=== PATIENT | male | born 1985 | race Caucasian/White ===

== ENCOUNTER 2023-02-19 13:47 | Emergency (ER) | payer OTHER, SELFPAY ==
[2023-02-19] VITALS (39 sets, daily range): BP systolic 125–147; BP diastolic 81–110; PULSE 86–123; RESP 18–24; TEMP 36.8–38.1; O2SAT 90–99; BMI 26.6
--- NOTE | 2023-02-19 14:09 | ED.GENADULT ---
HPI - General Adult General Chief complaint: Chest Pain Stated complaint: Cannot stand, chest pain, sweating Time Seen by Provider: 02/19/23 14:08 History of Present Illness HPI narrative: Medically complicated pt, mom states 67 surgeries in 18 years. Pt has a mitroffanoff which he caths through. Pt is having muscle spasms, a temperature, chest pains and has a fever per mom. Mom states pt called her yesterday and said he was sick and said his kidneys hurt and he was felling very sick. Mom brought him in to be seen. 37-year-old man presenting with Mom to the emergency department with concern of just feeling really bad. Extensive and complicated past medical. Yesterday started to feel weak and was starting to feel increasingly chilled. Went outside, I would notice rather warm today, to try to feel warm. He does not acknowledge a fever though apparently measured to 99.9 on arrival and as I am evaluating him we recheck at 100.3 temporal. No cough or cold symptoms. He is not actually short of breath. The hunched over in apparent a chest pain on the way into the emergency department. Is not complaining of that at the moment. Has been having some muscle spasms. Had numerous procedures. Does acknowledge more remotely a history of sepsis following what sounds like a perforated bladder. And has been septic apparently from a sepsis with urinary source as well. Does not have known cardiovascular disease. He does self cath through a Mitrofanoff. 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 He has been having headache and some soreness at the left neck Related Data Allergies Allergy/AdvReac Type Severity Reaction Status Date / Time cephalexin [From Keflex] Allergy Hives Verified 02/23/23 19:22 nitrofurantoin Allergy Rash Verified 02/25/23 12:57 [From Macrobid] amoxicillin AdvReac Severe Verified 02/19/23 14:06 latex AdvReac Severe Verified 02/19/23 14:06 levofloxacin AdvReac Severe Verified 02/19/23 14:06 morphine AdvReac Severe Verified 02/19/23 14:06 Penicillins AdvReac Severe Verified 02/19/23 14:06 Review of Systems Status of ROS: Reports: 6 or more systems reviewed and unremarkable except as noted in History and below PFSH PFSH Social History Smoking Status: Never smoker Do you use any of these nicotine containing products: None Second hand tobacco smoke exposure: No How often do you have a drink containing alcohol: never How often do you have six or more drinks on one occasion: Never AUDIT-C Alcohol total score: 0 Non-prescribed substance use: denies use service: No Exam Narrative: Exam Narrative: Slumped over brought in to room 8 in a wheelchair. Skin is warm and dry. Numerous areas of scarring over abdomen and lower legs consistent with surgical sites. He has a colostomy at the left lower abdomen. Mildly erythematous umbilicus as site of catheterization. No purulence here. No induration or calor to suggest a cellulitis. GCS of 14. He is falling asleep but does arouse to voice or touch. Head looks to be atraumatic. Cranial nerves 2-12 intact. Lungs are clear. Skin is quite warm generally though the lower extremities are cool from mid erazo down. Chronically diminished tone here and decreased muscular development. He has posterior ankle braces that are in place presumably for footdrop to some degree. No inflammatory changes in the legs. No edema. Abdomen is soft and nontender with scars noted as above. Colostomy site is not appear to be inflamed. Heart is tachycardic in a regular rhythm. There is a scar present at the left neck that is generally a little tender. Pupils are equal and briskly reactive. Const: Vital Signs, click to edit/add: Vital Signs - 24 hr 02/19/23 14:00 02/19/23 14:11 02/19/23 14:15 Temperature 99.9 F H Pulse Rate 116 H 109 H Pulse Rate [Right Pulse Oximeter] 123 H Respiratory Rate 22 Blood Pressure Blood Pressure [Ri ght Upper Arm] 135/94 H Pulse Oximetry 97 98 97 Oxygen Delivery Me thod Room Air 02/19/23 14:17 02/19/23 14:30 02/19/23 14:32 Temperature Pulse Rate 115 H 110 H 104 H Pulse Rate [Right Pulse Oximeter] Respiratory Rate Blood Pressure 139/94 H 133/93 H Blood Pressure [Ri ght Upper Arm] Pulse Oximetry 96 97 96 Oxygen Delivery Me thod 02/19/23 14:45 02/19/23 14:47 02/19/23 15:00 Temperature Pulse Rate 110 H 97 101 H Pulse Rate [Right Pulse Oximeter] Respiratory Rate Blood Pressure 137/103 H Blood Pressure [Ri ght Upper Arm] Pulse Oximetry 98 97 94 Oxygen Delivery Me thod 02/19/23 15:02 02/19/23 15:15 02/19/23 15:30 Temperature Pulse Rate 102 H 112 H 100 Pulse Rate [Right Pulse Oximeter] Respiratory Rate Blood Pressure 128/83 Blood Pressure [Ri ght Upper Arm] Pulse Oximetry 94 94 95 Oxygen Delivery Me thod 02/19/23 15:31 02/19/23 15:45 02/19/23 16:00 Temperature Pulse Rate 98 105 H 106 H Pulse Rate [Right Pulse Oximeter] Respiratory Rate Blood Pressure 132/91 H Blood Pressure [Ri ght Upper Arm] Pulse Oximetry 97 98 92 Oxygen Delivery Me thod 02/19/23 16:05 02/19/23 16:15 02/19/23 16:30 Temperature Pulse Rate 111 H 110 H 106 H Pulse Rate [Right Pulse Oximeter] Respiratory Rate Blood Pressure Blood Pressure [Ri ght Upper Arm] Pulse Oximetry 98 94 97 Oxygen Delivery Me od 02/19/23 16:34 02/19/23 16:39 02/19/23 16:40 Temperature Pulse Rate 92 110 H 110 H Pulse Rate [Right Pulse Oximeter] Respiratory Rate Blood Pressure 138/110 H Blood Pressure [Ri ght Upper Arm] Pulse Oximetry 93 98 99 [facility] 16:42 02/19/23 16:45 02/19/23 17:00 Temperature 100.5 F H Pulse Rate 104 H 94 Pulse Rate [Right Pulse Oximeter] Respiratory Rate 24 Blood Pressure Blood Pressure [Ri ght Upper Arm] Pulse Oximetry 99 94 Oxygen Delivery Me thod 02/19/23 17:01 02/19/23 17:15 02/19/23 17:30 Temperature Pulse Rate 96 94 112 H Pulse Rate [Right Pulse Oximeter] Respiratory Rate Blood Pressure 125/81 Blood Pressure [Ri ght Upper Arm] Pulse Oximetry 90 95 97 Oxygen Delivery Me thod 02/19/23 17:32 02/19/23 17:45 02/19/23 18:00 Temperature Pulse Rate 112 H 96 100 Pulse Rate [Right Pulse Oximeter] Respiratory Rate Blood Pressure 145/97 H Blood Pressure [Ri ght Upper Arm] Pulse Oximetry 97 97 95 Oxygen Delivery Me thod 02/19/23 18:02 02/19/23 18:03 02/19/23 18:09 Temperature 98.2 F Pulse Rate 99 94 Pulse Rate [Right Pulse Oximeter] 94 Respiratory Rate 18 Blood Pressure 138/96 H Blood Pressure [Ri ght Upper Arm] Pulse Oximetry 97 96 96 Oxygen Delivery Me thod Room Air 02/19/23 18:15 02/19/23 18:30 02/19/23 18:32 Temperature Pulse Rate 102 H 98 93 Pulse Rate [Right Pulse Oximeter] Respiratory Rate Blood Pressure 145/102 H Blood Pressure [Ri ght Upper Arm] Pulse Oximetry 95 97 96 Oxygen Delivery Me thod 02/19/23 18:45 02/19/23 19:00 02/19/23 19:01 Temperature Pulse Rate 93 88 86 Pulse Rate [Right Pulse Oximeter] Respiratory Rate Blood Pressure 147/97 H Blood Pressure [Ri ght Upper Arm] Pulse Oximetry 97 97 94 Oxygen Delivery Me thod Documenting provider has reviewed patient's vital signs: yes Course Vital Signs Vital signs: Initial Vital Signs Temperature 99.9 F H 02/19/23 14:00 Temperature Source Temporal Artery Scan 02/19/23 14:00 Pulse Rate 123 H 02/19/23 14:00 Pulse Rhythm Regular 02/19/23 14:00 Pulse Strength 2+ Slightly Diminished 02/19/23 14:00 Respiratory Rate 22 02/19/23 14:00 Blood Pressure 135/94 H 02/19/23 14:00 Blood Pressure Mean 107 H 02/19/23 14:00 Blood Pressure Position Supine 02/19/23 14:00 Pulse Oximetry 97 02/19/23 14:00 Oxygen Delivery Method Room Air 02/19/23 14:00 Vital Signs Temperature 99.9 F H 02/19/23 14:00 Pulse Rate 123 H 02/19/23 14:00 Respiratory Rate 22 02/19/23 14:00 Blood Pressure 135/94 H 02/19/23 14:00 Pulse Oximetry 97 02/19/23 14:00 Oxygen Delivery Method Room Air 02/19/23 14:00 Temperature 98.2 F 02/19/23 18:09 Pulse Rate 86 02/19/23 19:01 Respiratory Rate 18 02/19/23 18:09 Blood Pressure 147/97 H 02/19/23 19:01 Pulse Oximetry 94 06/19/23 19:01 Oxygen Delivery Method Room Air 02/19/23 18:09 Medical Decision Making MDM Narrative Medical decision making narrative: Primarily needs investigation for infectious etiology. I think he will benefit also from IV hydration. Does appear to be dehydrated. Blood cultures will be collected. Urine culture Borderline SIRS criteria though ultimately I do not think he qualifies; not actually demonstrating organ dysfunction. Elevated white count mildly. Urine does appear to be infected. Markedly improved; does not look as flushed and definitely more energetic after hydration and monitoring in the emergency department. Heart rate notably improved. Ultimately ambulatory with Mom from the emergency department. Osmel in the emergency department See patient discharge plan Lab Data Lab results reviewed: Yes I reviewed the patient's lab results Labs: Lab Results 02/19/23 02/19/23 Range/Units 14:05 14:45 WBC 13.26 H (4.50-11.00) K/uL RBC 4.86 (4.30-5.90) m/uL Hgb 14.2 (13.5-17.5) gm/dL Hct 41.5 (37.0-53.0) % MCV 85 (80-100) fL MCH 29 (26-34) pg MCHC 34 (32-36) gm/dL RDW Coeff of Drake 12.5 (11.5-15.5) % Plt Count 256 (140-440) K/uL Neut % (Auto) 87.1 H (42.0-72.0) % Lymph % (Auto) 3.9 L (20-44) % Harnett % (Auto) 8.7 (0.0-11.0) % Eos % (Auto) 0.0 (0.0-7.0) % Baso % (Auto) 0.1 (0.0-3.0) % Neut # (Auto) 11.50 H (1.7-7.0) K/uL Lymph # (Auto) 0.50 L (0.90-2.90) K/uL H[place]ett # (Auto) 1.20 H (0.00-0.90) K/UL Eos # (Auto) 0.00 (0.00-0.50) K/uL Baso # (Auto) 0.00 (0.00-0.30) K/uL INR 1.06 (0.91-1.10) APTT 32 (23-33) Seconds VBG pH 7.527 H (7.32-7.43) VBG pCO2 24 L (40-50) mmHG VBG pO2 67.8 H (25-47) mmHG VBG HCO3 20 L (21-28) mmol/L Sodium 135 (135-149) mmol/L Potassium 3.6 (3.6-5.1) mmol/L Chloride 107 (96-114) mmol/L Carbon Dioxide 18 L (20-32) mmol/L BUN 13 (5-24) mg/dL Creatinine 0.9 (0.5-1.5) mg/dL Estimated Creat Clear 106.61 Estimated GFR 111 ml/min Glucose 105 (60-115) mg/dL Lactate 1.5 (0.5-1.9) mmol/L Calcium 9.5 (8.4-10.6) mg/dL Magnesium 2.0 (1.5-2.6) mg/dL Total Bilirubin 1.2 (0.1-1.5) mg/dL Direct Bilirubin 0.1 (0.0-0.5) mg/dL AST 19 (12-35) U/L ALT 20 (4-50) U/L Alkaline Phosphatase 47 (40-150) U/L Troponin I < 0.01 L (0.01-0.04) ng/mL C-Reactive Protein 14.9 H (0.5-1.0) mg/dL NT-Pro-B Natriuret Pep 31 pg/mL Total Protein 7.9 (6.0-8.3) g/dL Albumin 4.6 (3.3-5.0) g/dL Procalcitonin 0.15 (<0.50) ng/mL Urine Color Yellow (Yellow) Urine Appearance Turbid A (Clear) Urine pH 6.5 (5.0-8.5) Ur Specific [place] 1.015 (1.000-1.030) Urine Protein 1+ A (Negative) Urine Glucose (UA) Negative (Negative) Urine Ketones Negative (Negative) Urine Blood Trace-intact A (Negative) Urine Nitrite Positive A (Negative) Urine Bilirubin Negative (Negative) Urine Urobilinogen 0.2 (0.2-1.0) Ur Leukocyte Esterase Trace A (Negative) Urine RBC 5-10 A (0-2) Urine WBC 5-10 A (0-5) Ur Squamous Epith Cells None (None-Few) Urine Bacteria Many A (None) Urine Mucus Many A (None) ECG Data Attestation: I personally reviewed and interpreted this ECG as follows: (Sinus tachycardia rate of 115) Discharge Plan Discharge Clinical Impression: Weakness, Acute UTI, Dehydration Patient Disposition: Home w/ Parent or Adult Condition: Improved Additional Instructions: Focus on hydration. Return for increasing fever, worsening weakness, repeated vomiting. Urine and blood cultures are pending here. Ciprofloxacin from [facility]. Follow Up/Referrals: Lang Ramsay MD [Primary Care Provider] - Stand Alone Forms: [employer] Info Instructions
--- NOTE | 2023-02-19 14:19 | CRLHL7_ITS ---
For Patients: As a result of the Century Cures Act, medical imaging exams and procedure reports are released immediately into your electronic medical record. You may view this report before your referring provider. If you have questions, please contact your health care provider. Indication: Left-sided chest pain Technique: Chest 1 view Comparison: Chest x-ray 12/04/2016 Findings/Impression: Cardiovascular and mediastinum: Normal heart size with left-sided line extending to the cavoatrial junction. Lungs and pleural space: Low lung volumes without pleural effusion or pneumothorax. No focal consolidation. Bones and soft tissues: No acute findings. Dictated by Lul Thomas MD @ 02/19/2023 3:30:06 PM (Electronically Signed)
[2023-02-19] MEDS: 0.9 % SODIUM CHLORIDE 1000 ml 1,000 ML 6000 ML IV (14:25)
--- OUTSIDE RECORDS SUMMARY | 2023-02-19 14:27 | XMS_ITS | Clinical Summary ---
Author Name Unknown Organization [facility] Address [address] [place] [address] Care Team Providers Care Cell Changer Name Role Phone Lang Ramsay Primary Care Physician Encounter 08/14/22 - 08/14/[address] [id number] Encounter Diagnosis Renal cyst(Discharge Diagnosis) - 08/14/22 Neurogenic bladder(Discharge Diagnosis) - 08/14/22 Low vitamin B12 level(Discharge Diagnosis) - 08/14/22 S/p colostomy(Discharge Diagnosis) - 08/14/22 Discharge Disposition: Home or Self Care Attending Physician: Mirtha Schmitz APRN CNP Admitting Physician: Mirtha Schmitz APRN CNP Referring Physician: Mirtha Schmitz APRN CNP Allergies, Adverse Reactions, Alerts Substance Reaction Severity Status amoxicillin hives Active morphine anxiety Active Latex Anaphylaxis Active levoFLOXacin hives Active Discharge Medications budesonide Status: Ordered Start Date: 08/14/22 3 Milligrams Oral every morning. cyanocobalamin (Vitamin B-12 1000 mcg oral tablet) Status: Ordered Start Date: 08/11/22 1 tabs Oral every day. Refills: 11. Ordering provider: Mirtha Schmitz APRN CNP [address] [phone] levETIRAcetam (Keppra 500 mg oral tablet) Status: Ordered Start Date: 02/07/17 1 tabs Oral 2 times a day. oxybutynin (oxybutynin 5 mg oral tablet) Status: Ordered Start Date: 08/11/22 TAKE ONE TABLET (5MG) BY MOUTH EVERY MORNING AND 2 TABLETS (10MG) EVERY EVENING. Refills: 11. Ordering provider: Mirtha Schmitz APRN CNP [facility] [address] [place], [place] [phone] sodium chloride (sodium chlo ride 0.9% irrigation solution) Status: Ordered Start Date: 07/13/20 [address] appendicovesicostomy every day. Refills: 11. Ordering provider: Mirtha Schmitz APRN CNP [facility] [address] [place], [place] [phone] Problem List Condition Confirmation Course Effective Dates Status Health St atus Informant At high risk for falls 1 Confirmed Active Neurogenic bladder Confirmed Active Colitis Confirmed Active Low vitamin B12 level Confirmed Active Erectile dysfunction Confirmed 08/22/18 Active S/p colostomy Confirmed Active Recurrent UTI Confirmed Active Spina bifida Confirmed Active Urinary incontinence Confirmed Active 1Added via Discern Expert [email or web address] Rule. Hospital Discharge Diagnosis Low vitamin B12 level(Discharge Diagnosis) - 08/14/22 Neurogenic bladder (Discharge Diagnosis) - 08/14/22 Renal cyst(Discharge Diagnosis) - 08/14/22 S/p colostomy(Discharge Diagnosis) - 08/14/22 (This Visit) Procedures Procedure Date Related Diagnosis Body Site Status bladder stone Completed Cath channel with revision Completed colostomy Completed history of bladder perforation Completed history of several bladder neck procedures Completed renal stone removal Compl eted urethral AUS with removal Completed [facility] shunt Completed Immunizations Given and Recorded Vaccine Date Status Refusal Reason SARS-CoV-2 mRNA (tozinameran) vaccine 05/10/21 Rec orded SARS-CoV-2 mRNA (tozinameran) vaccine 04/15/21 Rec orded influenza virus vaccine, inactivated 07/11/99 Feliberto rded tetanus-diphth toxoids (Td) adult/adol 01/16/96 Re corded measles/mumps/rubella/varicella vaccine 01/16/96 R ecorded Vital Signs Most recent to oldest [Reference Range]: 1 Pain Present No actual or suspect ed pain (08/14/22 2:47 PM) Able to self report Yes (08/14/22 2:47 PM) able to use numeric rating scale Yes (08/14/22 2:47 PM) Social History Social History Type Response Tobacco Never (less than 100 in lifetime), Exposure to Secondhand Smoke: No. Sex Treatment Plan Future Appointments Appointment Date:08/15/2023 01:15:00 PM Scheduled Provider: Location:[facility] - Imaging Appointment Type:US Appointment Date:08/15/2023 02:30:00 PM Scheduled Provider:Mirtha Schmitz APRN CNP Location:[facility] - Clinic Appointment Type:Urology - Standard Patient Care team information Personnel Name: Lang Ramsay MD Address: Address: [address] [address]
--- OUTSIDE RECORDS SUMMARY | 2023-02-19 14:27 | XMS_ITS | Clinical Summary ---
Author Name Unknown Organization [facility] Address [address] [place] [address] Care Team Providers Care Marine Fuel Dock Attendant Name Role Phone SobiaLang Malini Primary Care Physician [phone] Encounter 08/14/22 - 08/14/[address] [phone] Discharge Disposition: Other Non-[facility] Fac Attending Physician: Mirtha Schmitz APRN CNP Admitting [...] 11. Ordering provider: Mirtha Schmitz APRN CNP [address] [phone] levETIRAcetam (Keppra 500 mg oral tablet) Status: Ordered Start Date: 02/07/17 1 tabs Oral 2 times a day. oxybutynin (oxybutynin 5 mg oral tablet) Status: Ordered Start Date: 08/11/22 TAKE ONE TABLET (5MG) BY MOUTH EVERY MORNING AND 2 TABLETS (10MG) EVERY EVENING. Refills: 11. Ordering provider: Mirtha Schmitz APRN CNP [address] [phone] sodium chloride (sodium chlo ride 0.9% irrigation solution) Status: Ordered Start Date: 07/13/20 [address] appendicovesicostomy every day. Refills: 11. Ordering provider: Mirtha Schmitz APRN WHEELCHAIR VAN OPERATOR FIRST RESPONDER [address] [phone] Problem List Condition Confirmation Course Effective Dates Status Health St atus Informant At high risk for falls 1 Confirmed Active Neurogenic bladder Confirmed Active Colitis Confirmed Active Low vitamin B12 level Confirmed Active Erectile dysfunction Confirmed 08/22/18 Active S/p colostomy Confirmed Active Recurrent UTI Confirmed Active Spina bifida Confirmed Active Urinary incontinence Confirmed Active 1Added via Discern Expert [email or web address] Rule. Procedures Procedure Date Related Diagnosis Body Site [...] No actual or suspect ed pain (08/14/22 3:30 PM) Social History Social History Type Response Tobacco Never (less than 100 in lifetime), Exposure to Secondhand Smoke: No. Sex Treatment Plan Future Appointments Appointment Date:08/15/2023 01:15:00 PM Scheduled Provider: Location:[facility] - Imaging Appointment Type:US Appointment Date:08/15/2023 02:30:00 PM Scheduled Provider:Mirtha Schmitz APRN WHEELCHAIR VAN OPERATOR FIRST RESPONDER Location:[facility] - Clinic Appointment Type:Urology - Standard Patient Care team information Personnel Name: Lang Ramsay MD Address: Address: [address] [address]
[2023-02-19 14:39] LABS: Basophils Percent Auto 0.1 % (0.0-3.0); Hematocrit 41.5 % (37.0-53.0); Hemoglobin* 14.2 gm/dL (13.5-17.5); Immature Granulocytes Pct Auto 0.2 %; Lymphocytes Percent Auto 3.9 % (20-44); Mean Corpuscular HGB Conc 34 gm/dL (32-36); Mean Corpuscular Hemoglobin 29 pg (26-34); Mean Corpuscular Volume 85 fL (80-100); Monocytes Percent Auto 8.7 % (0.0-11.0); Neutrophils Percent Auto 87.1 % (42.0-72.0); Platelet Count* 256 K/uL (140-440); RDW Coefficient of Variation % 12.5 % (11.5-15.5); Red Blood Count 4.86 m/uL (4.30-5.90); White Blood Count* 13.26 K/uL (4.50-11.00)
[2023-02-19 14:42] LABS: HCO3 VBG 20 mmol/L (21-28); PCO2 VBG 24 mmHG (40-50); PO2 VBG 67.8 mmHG (25-47); pH VBG 7.527 (7.32-7.43)
[2023-02-19 14:44] LABS: Lactate* 1.5 mmol/L (0.5-1.9)
[2023-02-19 14:47] LABS: Slide Review Reflex No
[2023-02-19 14:59] LABS: Bilirubin Urine Negative (Negative); Blood Urine Trace-intact (Negative); Color Urine Yellow (Yellow); Glucose Urine Negative (Negative); Ketones Urine Negative (Negative); Leukocyte Esterase Urine Trace (Negative); Nitrite Urine Positive (Negative); Protein Urine 1+ (Negative); Specific Gravity Urine 1.015 (1.000-1.030); Urobilinogen Urine 0.2 (0.2-1.0); pH Urine 6.5 (5.0-8.5)
[2023-02-19 15:01] LABS: Albumin* 4.6 g/dL (3.3-5.0); Chloride* 107 mmol/L (96-114)
[2023-02-19 15:01] LABS: Appearance Urine Turbid (Clear)
[2023-02-19 15:02] LABS: Potassium* 3.6 mmol/L (3.6-5.1); Sodium* 135 mmol/L (135-149)
[2023-02-19 15:04] LABS: Creatinine* 0.9 mg/dL (0.5-1.5); Est. Creatinine Clearance* 106.61; Estimated Glomerular Filt Rate 111 ml/min
[2023-02-19 15:05] LABS: Alanine Aminotransferase* 20 U/L (4-50); Alkaline Phosphatase* 47 U/L (40-150); Aspartate Amino Transferase* 19 U/L (12-35); Bilirubin Direct* 0.1 mg/dL (0.0-0.5); Bilirubin Total* 1.2 mg/dL (0.1-1.5); Blood Urea Nitrogen* 13 mg/dL (5-24); Calcium* 9.5 mg/dL (8.4-10.6); Carbon Dioxide* 18 mmol/L (20-32); Glucose* 105 mg/dL (60-115); Total Protein* 7.9 g/dL (6.0-8.3)
[2023-02-19 15:09] LABS: Bacteria Urine Many; Mucus Urine Many
[2023-02-19 15:11] LABS: INR 1.06 (0.91-1.10); Prothrombin Time 14.5 Seconds
[2023-02-19 15:12] LABS: Partial Thromboplastin Time* 32 Seconds (23-33)
[2023-02-19 15:15] LABS: NT Pro B Type NatriureticPept* 31 pg/mL
[2023-02-19 15:18] LABS: Troponin I* < 0.01 ng/mL (0.01-0.04)
[2023-02-19 15:21] LABS: Procalcitonin* 0.15 ng/mL (<0.50)
[2023-02-19 16:03] LABS: C Reactive Protein* 14.9 mg/dL (0.5-1.0)
--- NOTE | 2023-02-19 16:09 | CRLHL7_ITS ---
For Patients: As a result of the Century Cures Act, medical imaging exams and procedure reports are released immediately into your electronic medical record. You may view this report before your referring provider. If you have questions, please contact your health care provider. INDICATION: Headache, febrile illness, history of hydrocephalus, shunt TECHNIQUE: Noncontrast axial CT of the head. Coronal and sagittal reformats. Bone and soft tissue algorithms. COMPARISON: MRI brain 04/09/2018 FINDINGS: Postsurgical changes of left parietal elyssa hole craniotomy and ventriculostomy, catheter tip terminating at midline, just anterior to the callosal genu. Stable configuration of the decompressed ventricular system. 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 No acute intracranial hemorrhage, midline shift or abnormal extra-axial fluid collection. No hydrocephalus or periventricular hypoattenuation to suggest transependymal CSF flow. Grayson-white matter differentiation is grossly maintained. The bony calvarium appears otherwise grossly intact. Visualized paranasal sinuses and mastoid air cells are clear. The included orbits are unremarkable. IMPRESSION: 1. Stable decompressed configuration of the shunted ventricular system, with the left parietal approach shunt catheter tip terminating just anterior to the callosal genu. 2. No evidence of acute intracranial abnormality. No significant interval change relative to the 04/09/2018 MRI. Please note that all CT scans at this facility use dose modulation, iterative reconstruction, and/or weight-based dosing when appropriate to reduce radiation dose to as low as reasonably achievable. Dictated by Minnie Grewal MD @ 02/19/2023 4:53:01 PM (Electronically Signed)
[2023-02-19] MEDS: 0.9 % SODIUM CHLORIDE 1000 ml 1,000 ML IV (16:39)
[2023-02-19] MEDS: KETOROLAC 30 MG/ML inj IVP (16:48)
--- NOTE | 2023-02-19 18:10 | ED.NURSE ---
is wanting to eat. did tolerate water well. did have u/o of 130 ml per self cath-umbilicus.
--- NOTE | 2023-02-19 18:25 | ED.NURSE ---
rocephin 1 gram iv started over 30 min.
[2023-02-19] MEDS: cefTRIAXone 1 GM in 0.9 % SODIUM CHLORIDE Mini-bag 100 ML IVPB (18:29)
--- NOTE | 2023-02-23 19:23 | ED.NURSE ---
Pt called. Stated that he took his first dose of keflex about 30 min ago and now has hives on his torso moving up his neck. Per Dr Hayden, stop keflex, start macrobid 100mg po BID for 5 days, start tomorrow 02/24/23. For hives take either claritin or zyrtec and may take benadryl on top of those as well. Also advised pt to let his providers know to add Keflex to his allergy list.
--- NOTE | 2023-02-25 13:00 | ED.NURSE ---
Pt called. Stated that he started to get hives from Macrobid. Urinary sx are better. Dr Aguilera updated. New RX for Bactrim DS BID for 3 days called into [facility] in [place].
== END 2023-02-19 19:11 | disposition home or self-care (01) ==
PROVIDERS: Emergency Provider Family Medicine; PCP Family Medicine
DX: R53.1 Weakness (principal); N39.0 Urinary tract infection, site not specified; E86.0 Dehydration
CPT/HCPCS: 36415; 70450; 71045; 80048; 80076; 81001; 82803; 83605; 83735; 83880; 84145; 84484; 85025; 85610; 85730; 86140; 87040; 87086; 87186; 93005; 99284; 99285; J0696; J1885; J7030

== ENCOUNTER 2024-04-23 17:26 | Emergency (ER) | payer OTHER, SELFPAY ==
[2024-04-23 17:30] VITALS: BP 147/97; PULSE 97; RESP 18; TEMP 37.3; O2SAT 97
--- NOTE | 2024-04-23 17:51 | CRLHL7_ITS ---
For Patients: As a result of the Century Cures Act, medical imaging exams and procedure reports are released immediately into your electronic medical record. You may view this report before your referring provider. If you have questions, please contact your health care provider. INDICATION: Upper abdomen pain, right flank pain, UTI symptoms. TECHNIQUE: CT abdomen and pelvis acquired with 80 cc of Isovue 370 IV contrast. COMPARISON: CT abdomen and pelvis 04/03/2019. FINDINGS: Lower chest: Unremarkable. Liver: Unremarkable. Normal in size and attenuation. No suspicious masses. Gallbladder and bile ducts: Status post cholecystectomy. No abnormal biliary ductal dilatation. Pancreas: Unremarkable. No mass or inflammation. Spleen: Unremarkable. Normal in size. No masses. Adrenal glands: Unremarkable. No nodules. Kidneys, Ureters, and Bladder: Symmetric renal enhancement. Tiny left renal cyst. There is prominent enhancement of the urothelium of the ureters bilaterally, [id number]. Unchanged trabeculated bladder with prominent urachal remnant and fatty infiltration within the superior bladder wall. Circumferential bladder wall thickening. GI tract: Prior left hemicolectomy with left lower quadrant ostomy. No bowel obstruction. Prior appendectomy. Vasculature: Abdominal aorta is normal in caliber. Mesenteric arteries are patent. Lymph nodes: No lymphadenopathy. Peritoneum/Abdominal Wall: No free air or significant free fluid. Pelvis: No mass. Bones: Chronic lower lumbar spine bifida with posterior meningocele IMPRESSION: 1. Prominent enhancement of the urothelium of the ureters bilaterally, [id number]. Recommend correlation with urinalysis to exclude an ascending urinary tract infection. No CT evidence for pyelonephritis. 2. Similar-appearing changes of prior left hemicolectomy with left lower quadrant ostomy. No bowel obstruction. 3. Unchanged trabeculated appearance of the bladder with circumferential bladder wall thickening and prominent urachal remnant. 4. 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 Please note that all CT scans at this facility use dose modulation, iterative reconstruction, and/or weight-based dosing when appropriate to reduce radiation dose to as low as reasonably achievable. Dictated by Omid Pittman MD @ 04/23/2024 8:05:14 PM (Electronically Signed)
--- NOTE | 2024-04-23 17:54 | ED_ITS ---
HPI - Male Genitourinary General Date Seen: 04/23/24 Chief complaint: Urogenital Problems, Male Stated complaint: uti Time Seen by Provider: 04/23/24 17:36 Source: patient Mode of arrival: ambulatory Limitations: no limitations History of Present Illness HPI Narrative: Patient is a 38-year-old male with a history of spina bifida who self caths and gets recurrent UTIs presenting to the emergency department for concern of UTI. States that past 2 days he has a having right-sided flank pain and strong order wrist urine, chills, diaphoresis and states as a burning sensation even when he is self cathing. He also has developed upper abdominal pain this morning. States he has had pyelonephritis in the past and only symptoms feel like UTI but he has not had this associated abdominal pain before. Has not had much of an appetite so has not ate or drank much today. He has also noticed some blood on the tip of the catheter further come past couple days and mucus within the urine. States he frequently gets UTIs in usually is given Cipro or Bactrim. Has been told that when he gets symptoms like this ED should try some home remedies to see if symptoms improve on their own. He tried that without any improvement. Denies lightheadedness, dizziness, chest pain, shortness of breath, weakness, numbness, diarrhea, constipation. Related Data Home Medications ?Medication ?Instructions ?Recorded ?Confirmed colostomy bags 02/26/23 Allergies Allergy/AdvReac Type Severity Reaction Status Date / Time cephalexin [From Keflex] Allergy Hives Verified 02/23/23 19:22 nitrofurantoin Allergy Rash Verified 02/25/23 12:57 [From Macrobid] amoxicillin AdvReac Severe Verified 02/19/23 14:06 latex AdvReac Severe Verified 02/19/23 14:06 levofloxacin AdvReac Severe Verified 02/19/23 14:06 morphine AdvReac Severe Verified 02/19/23 14:06 Penicillins AdvReac Severe Verified 02/19/23 14:06 Review of Systems Status of ROS: Reports: 10 or more systems reviewed and unremarkable except as noted in History and below PFSH PFSH Social History Smoking Status: Never smoker Do you use any of these nicotine containing products: None Second hand tobacco smoke exposure: No How often do you have a drink containing alcohol: never How often do you have six or more drinks on one occasion: Never AUDIT-C Alcohol total score: 0 Non-prescribed substance use: denies use service: No Exam Narrative: Exam Narrative: Const: Well-nourished, Well-developed, in mild distress Eyes: PERRL, no conjunctival injection, and symmetrical lids HENT: Atraumatic external nose and ears. Moist mucous membranes. Neck: Symmetric, trachea midline, No thyromegaly. CVS: RRR, No murmurs or gallops. Peripheral pulses 2+ and equal in all extremities RESP: Unlabored respiratory effort. Clear to auscultation bilaterally. GI: Mild epigastric and left upper quadrant tenderness, nondistended, No rebound or guarding. Right CVA tenderness MSK:Extremities w/o deformity, Normal Active ROM Skin: Warm, Dry. No rashes or lesions. Neuro: Normal Muscle tone, No focal neurological deficits. Psych: Awake, Alert, & Oriented x3. Appropriate mood and affect. Const: Vital Signs, click to edit/add: Vital Signs - 24 hr 04/23/24 17:30 04/23/24 19:48 Temperature 99.1 F 98.9 F Pulse Rate [Right Pulse Oximeter] 97 92 Respiratory Rate 18 18 Blood Pressure [Ri ght Upper Arm] 147/97 H 150/101 H Pulse Oximetry 97 98 Oxygen Delivery Me thod Room Air Room Air Course Vital Signs Vital signs: Initial Vital Signs Temperature 99.1 F 04/23/24 17:30 Temperature Source Temporal Artery Scan 04/23/24 17:30 Pulse Rate 97 04/23/24 17:30 Respiratory Rate 18 04/23/24 17:30 Blood Pressure 147/97 H 04/23/24 17:30 Blood Pressure Mean 113 H 04/23/24 17:30 Blood Pressure Position Supine 04/23/24 17:30 Pulse Oximetry 97 04/23/24 17:30 Oxygen Delivery Method Room Air 04/23/24 17:30 Vital Signs Temperature 99.1 F 04/23/24 17:30 Pulse Rate 97 04/23/24 17:30 Respiratory Rate 18 04/23/24 17:30 Blood Pressure 147/97 H 04/23/24 17:30 Pulse Oximetry 97 04/23/24 17:30 Oxygen Delivery Method Room Air 04/23/24 17:30 Temperature 98.9 F 04/23/24 19:48 Pulse Rate 92 04/23/24 19:48 Respiratory Rate 18 04/23/24 19:48 Blood Pressure 150/101 H 04/23/24 19:48 Pulse Oximetry 98 04/23/24 19:48 Oxygen Delivery Method Room Air 04/23/24 19:48 Medications Administered Medications: Discontinued Medications Generic Name Dose Route Start Last Admin Trade Name Vamsi PRN Reason Stop Dose Admin Lactated Ringer's 1,000 mls @ 1,000 mls/hr 04/23/24 17:50 04/23/24 19:19 Lactated Ringers 1000 Ml IV 04/23/24 18:49 1,000 mls/hr .Q1H ONE Administration Lidocaine/Aluminum/Magnesium/Simeth 30 ml 04/23/24 17:50 04/23/24 18:57 Gi Cocktail (Visc Lido/Antacid) 30 Ml PO 04/23/24 17:51 30 ml ONCE ONE Administration MDM - Male Genitourinary MDM Narrative Medical decision making narrative: Patient is a 38-year-old male presenting for concerns of UTI. Based on my exam I have some concern for pyelonephritis. Kidney stone is a possibility but lower in the differential. With a unilateral symptoms AAA seems unlikely. The epigastric pain could be related to an SBO as he has had previous abdominal surgery was a cholecystectomy, pancreatitis, gastritis, ulcers. Has not had any melena or hematochezia. Will do urinalysis, CBC, lipase, CMP. Recommend L of lactated Ringer's. CT scan with contrast of the abdomen pelvis was ordered to better evaluate his symptoms. With the epigastric pain will also try GI cocktail to see if that helps with the symptoms. GI cocktail did not improve symptoms. CBC and CMP shows no concerning abnormalities. Lipase within normal limits. Urinalysis shows signs of UTI. CT scan returned showing signs of cystitis with infection moving up the ureters. No pyelonephritis at this time. He states he is usually placed on Cipro which I will prescribe at this time. This was sent via [facility]. He is otherwise doing well and is safe for discharge. Lab Data Labs: Lab Results 04/23/24 04/23/24 04/23/24 Range/Units 17:45 18:02 18:02 WBC 7.84 (4.50-11.00) K/uL RBC 4.68 (4.30-5.90) m/uL Hgb 13.4 L (13.5-17.5) gm/dL Hct 39.8 (37.0-53.0) % MCV 85 (80-100) fL MCH 29 (26-34) pg MCHC 34 (32-36) gm/dL RDW Coeff of Drake 12.9 (11.5-15.5) % Plt Count 240 (140-440) K/uL Neut % (Auto) 72.6 H (42.0-72.0) % Lymph % (Auto) 17.2 L (20-44) % [place] % (Auto) 9.4 (0.0-11.0) % Eos % (Auto) 0.0 (0.0-7.0) % Baso % (Auto) 0.4 (0.0-3.0) % Neut # (Auto) 5.70 (1.7-7.0) K/uL Lymph # (Auto) 1.30 (0.90-2.90) K/uL [place] # (Auto) 0.70 (0.00-0.90) K/UL Eos # (Auto) 0.00 (0.00-0.50) K/uL Baso # (Auto) 0.03 (0.00-0.30) K/uL Abs Immat Gran (auto) 0.03 (0.00-0.30) K/uL Imm/Tot Granulo (auto) 0.4 % Sodium 138 (135-149) mmol/L Potassium 3.7 (3.6-5.1) mmol/L Chloride 107 (96-114) mmol/L Carbon Dioxide 22 (20-32) mmol/L Anion Gap 9 (7-15) mEq/L BUN 10 (5-24) mg/dL Creatinine 0.8 (0.5-1.5) mg/dL Estimated Creat Clear 94.79 Estimated GFR 115 ml/min Glucose 101 (60-115) mg/dL Calcium 9.2 (8.4-10.6) mg/dL Total Bilirubin 0.8 (0.1-1.5) mg/dL AST 29 (12-35) U/L ALT 25 (4-50) U/L Alkaline Phosphatase 47 (40-150) U/L Total Protein 8.1 (6.0-8.3) g/dL Albumin 4.8 (3.3-5.0) g/dL Lipase 111 Cancelled (23-300) U/L Urine Color Yellow (Yellow) Urine Appearance Clear (Clear) Urine pH 7.0 (5.0-8.5) Ur Specific [place] 1.020 (1.000-1.030) Urine Protein Negative (Negative) Urine Glucose (UA) Negative (Negative) Urine Ketones Negative (Negative) Urine Blood Negative (Negative) Urine Nitrite Positive A (Negative) Urine Bilirubin Negative (Negative) Urine Urobilinogen 0.2 (0.2-1.0) Ur Leukocyte Esterase Trace A (Negative) Urine RBC 2-5 A (0-2) Urine WBC 2-5 (0-5) Ur Squamous Epith Cells Few (None-Few) Urine Bacteria Few A (None) Urine Mucus (None) Imaging Data CT scan abdomen and pelvis: Attestation: I have reviewed the pertinent imaging results. Radiologist's impression: 1. Prominent enhancement of the urothelium of the ureters bilaterally, [id number]. Recommend correlation with urinalysis to exclude an ascending urinary tract infection. No CT evidence for pyelonephritis. 2. Similar-appearing changes of prior left hemicolectomy with left lower quadrant ostomy. No bowel obstruction. 3. Unchanged trabeculated appearance of the bladder with circumferential bladder wall thickening and prominent urachal remnant. 4. 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 Please note that all CT scans at this facility use dose modulation, iterative reconstruction, and/or weight-based dosing when appropriate to reduce radiation dose to as low as reasonably achievable. Dictated by Omid Pittman MD @ 04/23/2024 8:05:14 PM Discharge Plan Discharge Clinical Impression: Urinary tract infection Qualifiers: Urinary tract infection type: urethritis Qualified Code(s): N34.2 - Other urethritis Patient Disposition: Home, Self-Care Condition: Stable Instructions: Catheter-associated Urinary Tract Infection (ED) Additional Instructions: Use the ciprofloxacin as prescribed. Return to emergency department for new or worsening symptoms Prescriptions: No Action (DME) colostomy bags Misc See Rx Instructions .Route Rx Instructions: As directed Follow Up/Referrals: Lang Ramsay MD [Primary Care Provider] - Stand Alone Forms: MyHealth Info Instructions
[2024-04-23 18:05] LABS: Appearance Urine Clear (Clear); Bilirubin Urine Negative (Negative); Blood Urine Negative (Negative); Color Urine Yellow (Yellow); Glucose Urine Negative (Negative); Ketones Urine Negative (Negative); Leukocyte Esterase Urine Trace (Negative); Nitrite Urine Positive (Negative); Protein Urine Negative (Negative); Urobilinogen Urine 0.2 (0.2-1.0)
[2024-04-23 18:24] LABS: Basophils Absolute Auto 0.03 K/uL (0.00-0.30); Basophils Percent Auto 0.4 % (0.0-3.0); Hematocrit 39.8 % (37.0-53.0); Hemoglobin* 13.4 gm/dL (13.5-17.5); Immature Granulocytes Abs Auto 0.03 K/uL (0.00-0.30); Immature Granulocytes Pct Auto 0.4 %; Lymphocytes Percent Auto 17.2 % (20-44); Mean Corpuscular HGB Conc 34 gm/dL (32-36); Mean Corpuscular Hemoglobin 29 pg (26-34); Mean Corpuscular Volume 85 fL (80-100); Monocytes Percent Auto 9.4 % (0.0-11.0); Neutrophils Percent Auto 72.6 % (42.0-72.0); Platelet Count* 240 K/uL (140-440); RDW Coefficient of Variation % 12.9 % (11.5-15.5); Red Blood Count 4.68 m/uL (4.30-5.90); White Blood Count* 7.84 K/uL (4.50-11.00)
[2024-04-23 18:28] LABS: Bacteria Urine Few; Squamous Epithelial Cell Urine Few (None-Few)
[2024-04-23 18:31] LABS: Slide Review Reflex No
[2024-04-23 18:40] LABS: Albumin* 4.8 g/dL (3.3-5.0)
[2024-04-23 18:41] LABS: Chloride* 107 mmol/L (96-114); Potassium* 3.7 mmol/L (3.6-5.1); Sodium* 138 mmol/L (135-149)
[2024-04-23 18:43] LABS: Alkaline Phosphatase* 47 U/L (40-150); Anion Gap 9 mEq/L (7-15); Aspartate Amino Transferase* 29 U/L (12-35); Bilirubin Total* 0.8 mg/dL (0.1-1.5); Blood Urea Nitrogen* 10 mg/dL (5-24); Carbon Dioxide* 22 mmol/L (20-32); Creatinine* 0.8 mg/dL (0.5-1.5); Est. Creatinine Clearance* 94.79; Estimated Glomerular Filt Rate 115 ml/min; Glucose* 101 mg/dL (60-115); Lipase* 111 U/L (23-300); Total Protein* 8.1 g/dL (6.0-8.3)
[2024-04-23 18:44] LABS: Alanine Aminotransferase* 25 U/L (4-50); Calcium* 9.2 mg/dL (8.4-10.6)
[2024-04-23] MEDS: GI COCKTAIL (VISC LIDO/ANTACID) 30 ML PO (18:57)
[2024-04-23] MEDS: LACTATED RINGERS 1000 ML 1,000 ML IV (19:19)
[2024-04-23 19:48] VITALS: BP 150/101; PULSE 92; RESP 18; TEMP 37.2; O2SAT 98
== END 2024-04-23 20:33 | disposition home or self-care (01) ==
PROVIDERS: Emergency Provider Student in an Organized Health Care Education/Training Program; PCP Family Medicine
DX: N34.2 Other urethritis (principal)
CPT/HCPCS: 36415; 74177; 80053; 81001; 83690; 85025; 87086; 87186; 99283; 99284; A9270; J7120; Q9967

== ENCOUNTER 2024-11-06 20:39 | Emergency (ER) | payer OTHER, SELFPAY ==
[2024-11-06 20:40] VITALS: BP 144/94; PULSE 93; RESP 16; TEMP 37; O2SAT 97; BMI 30.5
--- OUTSIDE RECORDS SUMMARY | 2024-11-06 20:42 | XMS_ITS | Encounter Summary ---
Author Organization [facility] Address On license of [facility] [place] [address] Care Team Providers Care Director Digital Marketing Name Role Phone Isa Rod APRN [employer]PUT[employer] DESIGN DESIGNER Primary Care Provi ifeanyi Alina Berkowitz PA-C Unavailable Isa Rod APRN, CNP Unavailable + [phone] Jorge Reid MD Unavailable [phone] Lakeisha Aguilera MD Unavailable [phone] Jorge Reid MD Unavailable [phone] Encounter Details Date Type Department Care Team (Late st Contact Info) Description 10/17/2024 9:30 AM [facility] [address] [place] [id number] Spina bifida of lumbosacral region with hydrocephalus (H); Vitamin D deficiency Social History Tobacco Use Types Packs/Day Years Used Date Smoking Tobacco: Never Smokeless Tobacco: Never Alcohol Use Standard Drinks/Week Comments Never 0 (1 standard drink = 0.6 oz pur e alcohol) Social Connection and Isolation Panel [NHANES] A nswer Date Recorded Frequency of Communication with Friends and Fami ly Not on file 06/22/2024 How often do you get together with friends or re latives? Once a week 06/22/2024 Attends Druze Services Not on file 06/22 Active Member of Clubs or Organizations Not on f ile 06/22/2024 Attends Club or Organization Meetings Not on will e 06/22/2024 Marital Status Not on file 06/22/2024 PHQ-2 Answer Date Recorded PHQ-2 Score 0 09/08/2024 [facility] - Occupational Stress Questionnaire Answer Date Recorded Do you feel stress - tense, restless, nervous, or anxious, or unable to sleep at night because your mind is troubled all the time - these days? Very much 06/22/2024 Exercise Vital Sign Answer Date Recorde d On average, how many days pe r week do you engage in moderate to strenuous exercise (like a brisk walk)? 6 days 06/22/2024 On average, how many minutes do you engage in exercise at this level? 30 min 06/22/2024 Adolescent Education Answer Date Record ed Getting School Help Needed Not on file 06/10 Food Insecurity Answer Date Recorded Within the past 12 months, d id you worry that your food would run out before you got money to buy more? No 06/22/2024 Within the past 12 months, d id the food you bought just not last and you didn t have money to get more? No 06/22/2024 Housing Stability Answer Date Recorded Do you have housing? (Gerard campbell is defined as stable permanent housing and does not include staying ouside in a car, in a tent, in an abandoned building, in an overnight residential, or couch-surfing.) Yes 06/22/2024 Are you worried about losing your housing? No 06/22/2024 Financial Resource Strain Answer Date R ecorded Within the past 12 months, h ave you or your family members you live with been unable to get utilities (heat, electricity) when it was really needed? No 06/22/2024 Transportation Needs Answer Date Record ed Within the past 12 months, h as lack of transportation kept you from medical appointments, getting your medicines, non-medical meetings or appointments, work, or from getting things that you need? No 06/22/2024 Sex and Gender Information Value Date Recorded Sex Assigned at Not on file Legal Sex Male 3:09 AM [employer] Gender Identity Not on file Sexual Orientation Not on file documented as of this encounter Plan of Treatment Upcoming Encounters Date Type Department Care Team (Late st Contact Info) Description 01/16/2025 11:20 AM CDT Office Visit [facility] [place] [address] [place] [address] [address] [place] [address] Jorge Reid MD [address] [place] [phone] 01/27/2025 8:45 AM CDT Office Visit [facility] Neurology [facility] [address] [facility], [address] [place] [phone] Jorge Reid MD [address] [place] [phone] Gelacio Rock MD [address] [place] [address] [id number] [place], [place] [id number] 06/26/2025 8:00 AM CDT Office Visit [address] [phone] Isa Rod APRN [facility] [address] [place], [place] [phone] documented as of this encounter Procedures Procedure Name Priority Date/Time Associated Diagnosis Comments VITAMIN D DEFICIENCY SCREENING Routine 10/17/2024 9:21 AM [employer] Spina bifida of lumbosacral region with hydrocephalus (H) Vitamin D deficiency documented in this encounter Results * Vitamin D Deficiency (10/17/2024 9:21 AM [employer]) Vitamin D, Total (25-Hydroxy) 26 20 - 50 ng/mL 10/18/2024 1:19 PM [employer] [facility] Comment:optimum levels Blood BLOOD SPECIMEN / Unknown Venipuncture / Unknown 10/17/2024 9:21 AM [employer] 10/17/2024 9:21 AM [employer] Narrative [facility] - 10/18/2024 1:19 PM [employer] Season, race, dietary intake, and treatment affect the concentration of 55-drfoetd-Yssijbj D. Values may decrease during winter months and increase during summer months. Vitamin D determination is routinely performed by an immunoassay specific for 25 hydroxyvitamin D3. If an individual is on vitamin D2(ergocalciferol) supplementation, please specify 25 [place] vitamin D2 and D3 level determination by LCMSMS test [id number]. us Jorge Reid MD LAB - BLOOD ORDERABLES Fin al Result [facility] [address] [facility], Room [address] [phone] documented in this encounter Visit Diagnoses Diagnosis Spina bifida of lumbosacral region with hydrocephalus (H) Vitamin D deficiency Unspecified vitamin D deficiency documented in this encounter Additional Health Concerns Assessment Noted Time PHQ-9 Depression Total Score: 7 06/22/20 2:20 PM CDT documented as of this encounter Care Teams Director Digital Marketing Relationship Specialty Start Date End Date Isa Rod APRN COMPUTER [employer] DESIGN DESIGNER [address] [place] [address] PCP - General Family Medicine 06/23/24 Alina Berkowitz PA-C [address] [address] Physician Wood Fence Installer Urology 06/24/24 Isa Rod APRN [employer] DES[employer] [address] [place] [address] Assigned PCP 07/26/24 Jorge Reid MD [address] [place] [phone] Physician Physical Medicine and Rehabilitation 08/18/24 Lakeisha Aguilera MD [facility] [address] [place] [address] Assigned Surgical Provider 09/25/24 Jorge Reid MD [address] [place] [phone] Assigned Neuroscience Provider 09/25/24 documented as of this encounter
--- OUTSIDE RECORDS SUMMARY | 2024-11-06 20:42 | XMS_ITS | Clinical Summary ---
Author Organization [place] Address [facility] [place] [address] Care Team Providers Care Aluminum Polisher Name Role Phone Isa Rod APRN CONSTRUCTION FLAGGER Primary Care Provi ifeanyi Alina Berkowitz PA-C Unavailable Isa Rod APRN CONSTRUCTION FLAGGER Unavailable [phone] Jorge Reid MD Unavailable [phone] Lakeisha Aguilera MD Unavailable Jorge Reid MD Unavailable Allergies Active Allergy Reactions Criticality Noted Date Comments Amoxicillin High 03/28/2022 Rash and oral swelling Latex High 03/28/2022 rash Levofloxacin High 03/28/2022 Rash and oral swelling Morphine High 03/28/2022 Medications cyanocobalamin (VITAMIN B-12) 1000 MCG tablet Take 1 tablet by mouth every other day 03/09/20 22 Active KEPPRA 500 MG tablet Take 1,000 mg by mouth 2 times daily Patient reports taking 500mg (1 tablet) PO BID. 03/09/20 22 Active tadalafil (CIALIS) 20 MG tablet Take 20 mg by mouth daily as needed 02/05/20 22 Active carbidopa-levodop a (SINEMET) 10-100 MG tablet 1/2 oral twice daily as needed. 08/01/20 23 Active GEMTESA 75 MG TABS tablet Take 1 tablet by mouth daily at 2 pm. 06/14/20 24 Active lisinopril (ZESTRIL) 10 MG tabletIndications :Benign essential HTN Take 1 tablet (10 mg) by mouth daily. 90 tablet 3 10/19/19 25 Active lisinopril (ZESTRIL) 10 MG tabletIndications :Benign essential HTN Take 1 tablet (10 mg) by mouth daily. 90 tablet 06/23/20 24 025 Discontinued vitamin D3 (CHOLECALCIFEROL) 50 mcg (2000 units) tabletIndications :Spina bifida of lumbosacral region with hydrocephalus (H),Vitamin D deficiency Take 1 tablet (50 mcg) by mouth daily. 42 tablet 09/05/19 25 025 Active Problems Problem Noted Date Diagnosed Date At high risk for falls 09/05/2024 Overview (09/05/2024): Added via Discern Expert ADD_HIGHRISKFALL_PROBLEM Rule. Colitis 09/05/2024 Low vitamin B12 level 09/05/2024 Falls frequently 07/08/2024 Other migraine without status migrainosus, intra ctable 07/08/2024 Cauda equina syndrome 06/23/2024 Urinary incontinence 06/23/2024 Lymphocytic colitis 05/01/2022 Overview (09/05/2024): Colonoscopy 04/2022 lymphocytic colitis, SSA, repeat in 5 years Acute kidney injury 03/29/2022 Vomiting and diarrhea 03/29/2022 Nonintractable headache, uns pecified chronicity pattern, unspecified headache type 03/29/2022 Chronic UTI 09/03/2021 Recurrent UTI 08/22/2018 Erectile dysfunction 08/22/2018 Tremor 08/22/2018 Spina bifida of lumbosacral region with hydrocep halus 04/23/2018 Chiari malformation type II 04/23/2018 Traumatic brain injury 04/23/2018 Neurogenic bladder 04/23/2018 Benign essential HTN 04/23/2018 Hydrocephalus, unspecified 09/10/2015 Cervical spondylosis 09/10/2015 Cerebral infarction, unspecified 10/12/2011 Muscle weakness (generalized) 10/12/2011 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 [address] [place] [address] [address] [place] [phone] Jorge Reid MD Medication Refill 10/17/2024 9:30 AM NECK BAND MAKER Lab [facility] [address] [place] [address] [address] [place] [phone] Spina bifida of lumbosacral region with hydrocephalus (H); Vitamin D deficiency 10/17/2024 8:00 AM NECK BAND MAKER Office [facility] [address] [place] [address] [address] [place] [phone] Jorge Reid MD Spina bifida of lumbosacral region with hydrocephalus (H) (Primary Dx); Cervical stenosis of spinal canal 10/17/[address] [phone] Isa Rod APRN CNP Medication Refill 10/17/2024 Travel 10/16/[address] [facility] [address], [address] [place] [phone] Jorge Reid MD 10/15/2024 1:40 PM NECK BAND MAKER Office Visit [facility] [id number] [place] [address] [address] [place] [phone] Nick Lo MD Helland, Logan C, MD Pain of right sacroiliac joint (Primary Dx) 10/15/2024 Travel 10/13/2024 Travel 10/01/2024 Travel 10/01/2024 PRE VISIT [facility] [address] [place] [address] [address] [place] [address] Jacobo Guido MD Previsit 09/28/2024 Travel 09/16/2024 Telephone [facility] [address] [facility] [address] [place] [address] Jacobo Guido MD Appointment 09/08/2024 1:00 PM NECK BAND MAKER Virtual Visit [facility] [place] [address] [place] [phone] Isa Rod APRN CNP Mann, Rachel Ann, MD Neurogenic bladder (Primary Dx); Recurrent UTI; Chronic UTI; Urge incontinence of urine 09/05/2024 1:00 PM NECK BAND MAKER Lab [facility] [address] [place] [phone] Spina bifida of lumbosacral region with hydrocephalus (H) 09/05/2024 9:00 AM NECK BAND MAKER Office Visit [facility] [address] [place] [phone] Jorge Reid MD Spina bifida of lumbosacral region with hydrocephalus (H) (Primary Dx); Vitamin D deficiency 09/05/2024 Travel 09/02/2024 Travel 08/13/2024 12:40 PM NECK BAND MAKER Office Visit [facility] [address] [facility], [address] [place] [phone] Isa Rod APRN CNP Wempe, Michael, MD Spina bifida of lumbosacral region with hydrocephalus (H) (Primary Dx); Spina bifida of lumbar region with hydrocephalus (H) 08/12/2024 Travel from Last 3 Months Immunizations Name Administration Dates Next Due Flu, Unspecified 07/11/1999 Influenza (IIV3) PF 07/11/1999 MMR 01/16/1996 MMR/V 01/16/1996 Td (Adult), Adsorbed 01/16/1996 Td Tetanus Not Adsbed Adult 01/16/1996 Social History Tobacco Use Types Packs/Day Years Used Date Smoking Tobacco: Never Smokeless Tobacco: Never Tobacco Cessation:Counseling Given: Not Answered Alcohol Use Standard Drinks/Week Comments Never 0 (1 standard drink = 0.6 oz pur e alcohol) Social Connection and Isolation Panel [NHANES] A nswer Date Recorded Frequency of Communication with Friends and Fami ly Not on file 06/22/2024 How often do you get together with friends or re latives? Once a week 06/22/2024 Attends Alevism Services Not on file 06/22 Active Member of Clubs or Organizations Not on f ile 06/22/2024 Attends Club or Organization Meetings Not on will e 06/22/2024 Marital Status Not on file 06/22/2024 PHQ-2 Answer Date Recorded PHQ-2 Score 0 09/08/2024 [facility] - Occupational Stress Questionnaire Answer Date Recorded [...] Answer Date Recorded Do you have housing? (Housin g is defined as stable permanent housing and does not include staying ouside in a car, in a tent, in an abandoned building, in an overnight [place] [facility] [place], or couch-surfing.) Yes 06/22/2024 Are you worried [...] on file Legal Sex Male 3:09 AM NECK BAND MAKER Gender Identity Not on file Sexual Orientation Not on file Last Filed Vital Signs Vital Sign Reading Time Taken Comments Blood Pressure 146/94 10/15/2024 1:38 PM NECK BAND MAKER Pulse 76 10/15/2024 1:38 PM NECK BAND MAKER Temperature 36.6 C (97.9 F) 06/23/2024 7:43 AM CDT Respiratory Rate 18 06/23/2024 7:43 AM CDT Oxygen Saturation 97% 10/15/2024 1:38 PM NECK BAND MAKER Inhaled Oxygen Concentration - - Weight 74.8 kg (165 lb) 08/13/2024 12:28 PM NECK BAND MAKER Height 160 cm (5' 3) 10/15/2024 1:38 PM NECK BAND MAKER Body Mass Index 29.23 08/13/2024 12:28 PM NECK BAND MAKER Plan of Treatment Upcoming Encounters Date Type Department Care Team (Late st Contact Info) Description 01/16/2025 11:20 AM CDT Office Visit [facility] [address] [place] [address] [address] [place] [phone] Jorge Reid MD [address] [place] [id number] 01/27/2025 8:45 AM CDT Office Visit [facility] [place] [address] [place] [address], [address] [place] [phone] Jorge Reid MD [address] [address] Gelacio Rock MD [address] [place] [address] [id number] [place], [place] [address] 06/26/2025 8:00 AM CDT Office Visit [facility] [address] [place] [address] Isa Rod APRN [facility] [address] [place] [address] Health Maintenance Due Date Last Done Comments DTAP/TDAP/TD IMMUNIZATION (2 - Tdap) 01/17/1996 01/16/1996, 01/16/1996 HEPATITIS B IMMUNIZATION (1 of 3 - 19+ 3-dose series) 11/01/2002 COVID-19 Vaccine (2023- season) 2024 05/10/2021, 04/15/2021 INFLUENZA VACCINE (#1) 2024 07/11/1999, 1998 ANNUAL REVIEW OF HM ORDERS 06/23/2025 06/23/2024 BMP 06/23/2025 06/23/2024, 03/04, 03/29/2022, Additional history exists YEARLY PREVENTIVE VISIT 06/23/2025 06/23/2024 GLUCOSE 06/23/2027 06/23/2024, 03/04, 03/29/2022, Additional history exists ADVANCE CARE PLANNING 06/23/2029 06/23/2024, 022 LIPID 06/23/2029 06/23/2024 ZOSTER IMMUNIZATION (1 of 2) 11/01/2033 HEPATITIS C SCREENING Completed 06/23/2024 HIV SCREENING Completed 06/23/2024 PHQ-2 (once per calendar year) Completed 09/08/2024, 09/05/2024, 06/23/2024, Additional history exists HPV IMMUNIZATION Aged Out No longer e ligible based on patient's age to complete this topic MENINGITIS IMMUNIZATION Aged Out No l onger eligible based on patient's age to complete this topic Pneumococcal Vaccine: Pediatrics (0 to 5 Years) and At-Risk Patients (6 to 49 Years) Aged Out No longer eligible based on patient's age to complete this topic Procedures Procedure Name Priority Date/Time Associated Diagnosis Comments VITAMIN D DEFICIENCY SCREENING Routine 10/17/2024 9:21 AM NECK BAND MAKER Spina bifida of lumbosacral region with hydrocephalus (H) Vitamin D deficiency ALBUMIN LEVEL Routine 09/05/2024 12:52 PM NECK BAND MAKER Spina bifida of lumbosacral region with hydrocephalus (H) CALCIUM Routine 09/05/2024 12:52 PM NECK BAND MAKER Spina bifida of lumbosacral region with hydrocephalus (H) VITAMIN D DEFICIENCY SCREENING Routine 09/05/2024 12:52 PM NECK BAND MAKER Spina bifida of lumbosacral region with hydrocephalus (H) MRI IMAGING - HIM SCAN 08/12/2024 12:00 AM NECK BAND MAKER MRI IMAGING - HIM SCAN 08/12/2024 12:00 AM NECK BAND MAKER MRI IMAGING - HIM SCAN 08/12/2024 12:00 AM NECK BAND MAKER HIV ANTIGEN ANTIBODY COMBO Routine 06/23/2024 8:53 AM CDT Screening for HIV (human immunodeficiency virus) HEPATITIS C SCREEN REFLEX TO HCV RNA QUANT AND GENOTYPE Routine 06/23/2024 8:53 AM CDT Need for hepatitis C screening test LIPID REFLEX TO DIRECT LDL PANEL Routine 06/23/2024 8:53 AM CDT CARDIOVASCULAR SCREENING; LDL GOAL LESS THAN 160 COMPREHENSIVE METABOLIC PANEL Routine 06/23/2024 8:53 AM CDT Benign essential HTN from Last 3 Months or Most Recently Relevant to Health Maintenance Results * Vitamin D Deficiency (10/17/2024 9:21 AM NECK BAND MAKER) Only the most recent of2 resultswithin the time period is included. Vitamin D, Total (25-Hydroxy) 26 20 - 50 ng/mL 10/18/2024 1:19 PM NECK BAND MAKER [facility] Comment:optimum levels Blood BLOOD SPECIMEN / Unknown Venipuncture / Unknown 10/17/2024 9:21 AM NECK BAND MAKER 10/17/2024 9:21 AM NECK BAND MAKER Narrative [facility] - 10/18/2024 1:19 PM NECK BAND MAKER Season, race, dietary intake, and treatment affect the concentration of 71-ankyjje-Iksyauo D. Values may decrease during winter months and increase during summer months. Vitamin D determination is routinely performed by an immunoassay specific for 25 hydroxyvitamin D3. If an individual is on vitamin D2(ergocalciferol) supplementation, please specify 25 [place] vitamin D2 and D3 level determination by LCMSMS test VITD23. Jorge Reid MD LAB - BLOOD ORDERABLES Fin al Result Performing Organization Address [facility] de Phone Number LABORATORY [facility] [address] [facility], [address] [phone] * Calcium (09/05/2024 12:52 PM NECK BAND MAKER) Calcium 9.6 8.8 - 10.4 mg/dL 09/05/2024 8:40 PM NECK BAND MAKER [facility] Comment:Reference intervals for this test were updated on 03/18/2024 to reflect our healthy population more accurately. There may be differences in the flagging of prior results with similar values performed with this method. Those prior results can be interpreted in the context of the updated reference intervals. Blood BLOOD SPECIMEN / Unknown Venipuncture / Unknown 09/05/2024 12:52 PM NECK BAND MAKER 09/05/2024 12:52 PM NECK BAND MAKER Jorge Reid MD LAB - BLOOD ORDERABLES Fin al Result Performing Organization Address [facility] de Phone Number LABORATORY [facility] [address] [facility], [address] [phone] * Albumin level (09/05/2024 12:52 PM NECK BAND MAKER) Albumin 4.5 3.5 - 5.2 g/dL 09/05/2024 8:40 PM NECK BAND MAKER [facility] Blood BLOOD SPECIMEN / Unknown Venipuncture / Unknown 09/05/2024 12:52 PM NECK BAND MAKER 09/05/2024 12:52 PM NECK BAND MAKER Jorge Reid MD LAB - BLOOD ORDERABLES Fin al Result Performing Organization Address [facility] Co de Phone Number LABORATORY [facility] [place] [facility] [address] [facility], [address] [phone] * MRI Imaging - HIM Scan (08/12/2024 12:00 AM NECK BAND MAKER) Only the most recent of3 resultswithin the time period is included. Anatomical Region Laterality Modality Other 08/12/2024 us Provider Outside IMG MRI ORDERABLES Final Result * HIV Antigen Antibody Combo (06/23/2024 8:53 AM CDT) HIV Antigen Antibody Combo Nonreactive Nonreactive 06/23/2024 4:53 PM CDT [facility] Comment:Negative HIV-1 p24 a ntigen and HIV-1/2 antibody screening test results usually indicate the absence of HIV-1 and HIV-2 infection. However, such negative results do not rule-out acute HIV infection. If acute HIV-1 or HIV-2 infection is suspected, detection of HIV-1 or HIV-2 RNA is recommended. This result is obtained using the Iris Elecsys HIV Duo method on the isacc e801 immunoassay analyzer. Blood BLOOD SPECIMEN / Unknown Venipuncture / Unknown 06/23/2024 8:53 AM CDT 06/23/2024 8:58 AM CDT Isa Rod APRN, CNP LAB - BLOOD ORDERAB LES Final Result [facility] [place] [facility] [address] [facility], [address] [phone] * Hepatitis C Screen Reflex to HCV RNA Quant and Genotype (06/23/2024 8:53 AM CDT) Hepatitis C Antibody Nonreactive Nonreactive 06/23/2024 4:00 PM CDT [facility] Comment:A nonreactive screen ing test result does not exclude the possibility of exposure to or infection with HCV. Nonreactive screening test results in individuals with prior exposure to HCV may be due to antibody levels below the limit of detection of this assay or lack of reactivity to the HCV antigens used in this assay. Patients with recent HCV infections (<3 months from time of exposure) may have false- negative HCV antibody results due to the time needed for seroconversion (average of 8 to 9 weeks). Blood BLOOD SPECIMEN / Unknown Venipuncture / Unknown 06/23/2024 8:53 AM CDT 06/23/2024 8:58 AM CDT us Isa Rod GALLERY INTERN CONSTRUCTION FLAGGER LAB - BLOOD ORDERAB LES Final Result [facility] [address] [facility], [address] [place] [address] * (ABNORMAL) Lipid panel reflex to direct LDL Non-fasting (06/23/2024 8:53 AM CDT) [facility] Cholesterol 196 <200 mg/dL 06/23/2024 4:12 PM CDT [facility] Triglycerides 106 <150 mg/dL 06/23/2024 4:12 PM CDT [facility] Direct Measure HDL 46 >=40 mg/dL 06/23/2024 4:12 PM CDT [facility] LDL Cholesterol Calculated 129(H) <100 mg/dL 06/23/2024 4:12 PM CDT [facility] Non HDL Cholesterol 150(H) <130 mg/dL 06/23/2024 4:12 PM CDT [facility] Patient Fasting > 8hrs? Yes 06/23/2024 4:12 PM CDT [facility] Blood BLOOD SPECIMEN / Unknown Venipuncture / Unknown 06/23/2024 8:53 AM CDT 06/23/2024 8:58 AM CDT Narrative [facility] - 06/23/2024 4:12 PM CDT Cholesterol Desirable: < 200 mg/dL Borderline High: 200 - 239 mg/dL High: >= 240 mg/dL Triglycerides Normal: < 150 mg/dL Borderline High: 150 - 199 mg/dL High: 200-499 mg/dL Very High: >= 500 mg/dL Direct Measure HDL Female: >= 50 mg/dL Male: >= 40 mg/dL LDL Cholesterol Desirable: < 100 mg/dL Above Desirable: 100 - 129 mg/dL Borderline High: 130 - 159 mg/dL High: 160 - 189 mg/dL Very High: >= 190 mg/dL Non HDL Cholesterol Desirable: < 130 mg/dL Above Desirable: 130 - 159 mg/dL Borderline High: 160 - 189 mg/dL High: 190 - 219 mg/dL Very High: >= 220 mg/dL us Isa Rod GALLERY INTERN CONSTRUCTION FLAGGER LAB - BLOOD ORDERAB LES Final Result [facility] [place] [facility] [address] [facility], [address] [place] [address] * (ABNORMAL) Comprehensive metabolic panel (BMP + Alb, Alk Phos, ALT, AST, Total. Bili, TP) (06/23/2024 8:53 AM CDT) Sodium 142 135 - 145 mmol/L 06/23/2024 4:12 PM CDT [facility] Potassium 4.3 3.4 - 5.3 mmol/L 06/23/2024 4:12 PM CDT [facility] Carbon Dioxide (CO2) 20(L) 22 - 29 mmol/L 06/23/2024 4:12 PM CDT [facility] Anion Gap 12 7 - 15 mmol/L 06/23/2024 4:12 PM CDT [facility] Urea Nitrogen 13.5 6.0 - 20.0 mg/dL 06/23/2024 4:12 PM CDT [facility] Creatinine 0.80 0.67 - 1.17 mg/dL 06/23/2024 4:12 PM CDT [facility] GFR Estimate >90 >60 mL/min/1.7 3m2 06/23/2024 4:12 PM CDT [facility] Comment:eGFR calculated us2020 CKD-EPI equation. Calcium 9.2 8.8 - 10.4 mg/dL 06/23/2024 4:12 PM CDT [facility] Comment:Reference intervals for this test were updated on 03/18/2024 to reflect our healthy population more accurately. There may be differences in the flagging of prior results with similar values performed with this method. Those prior results can be interpreted in the context of the updated reference intervals. Chloride 110(H) 98 - 107 mmol/L 06/23/2024 4:12 PM CDT [facility] Glucose 105(H) 70 - 99 mg/dL 06/23/2024 4:12 PM CDT [facility] Alkaline Phosphatase 40 40 - 150 U/L 06/23/2024 4:12 PM CDT [facility] AST 22 0 - 45 U/L 06/23/2024 4:12 PM CDT [facility] ALT 17 0 - 70 U/L 06/23/2024 4:12 PM CDT [facility] Protein Total 7.3 6.4 - 8.3 g/dL 06/23/2024 4:12 PM CDT [facility] Albumin 4.6 3.5 - 5.2 g/dL 06/23/2024 4:12 PM CDT [facility] Bilirubin Total 0.2 <=1.2 mg/dL 06/23/2024 4:12 PM CDT [facility] Patient Fasting > 8hrs? Yes 06/23/2024 4:12 PM CDT [facility] Blood BLOOD SPECIMEN / Unknown Venipuncture / Unknown 06/23/2024 8:53 AM CDT 06/23/2024 8:58 AM CDT us Isa Rod APRN CONSTRUCTION FLAGGER LAB - BLOOD ORDERAB LES Final Result [facility] [place] [facility] [address] [facility], [address] [place] [address], [facility] from Last 3 Months or Most Recently Relevant to Health Maintenance Insurance COMMERCIAL Advance Directives For more information, please contact: [phone] Documents on File Type Date Recorded Patient Supervisor Smoke Control Expl anation Advance Directives and Living Will 03/29/2022 Health Care Directiv e 02/05/2007 * Full Code (Latest Code Status on File) Date Activated Date Inactivated Comments 03/29/2022 3:45 AM 03/30/2022 1:04 PM All basic an d advanced life-sustaining interventions are performed as appropriate Question Answer Comments Code status determined by: Discussion with humphreye nt/ legal decision maker Healthcare Agents on File Name Relationship [facility] Miracle West Mother Health Care Agent Danilo West Father First Alternate Health Care Agent Care Teams Aluminum Polisher Relationship Specialty Start Date End Date Isa Rod APRN CONSTRUCTION FLAGGER [address] [place] [address] PCP - General Family Medicine 06/23/24 Alina Berkowitz PA-C [address] [address] Physician International Sourcing Manager Urology 06/24/24 Isa Rod APRN CONSTRUCTION FLAGGER [address] [place] [address] Assigned PCP 07/26/24 Jorge Reid MD [address] [place] [address] Physician Physical Medicine and Rehabilitation 08/18/24 Lakeisha Aguilera MD [facility] [address] [place] [address] Assigned Surgical Provider 09/25/24 Jorge Reid MD [address] [place] [address] Assigned Neuroscience Provider 09/25/24
--- OUTSIDE RECORDS SUMMARY | 2024-11-06 20:42 | XMS_ITS | Encounter Summary ---
[facility] Organization [facility] Address [address], [place] [address] Care Team Providers Care Panel Raiser Operator Name Role Phone Found, No Pcp MD Primary Care Provider Unavailab le Encounter Details Date Type Department Care Team (Late st Contact Info) Description 10/22/2024 Orders Only [facility] [address] [place] [address] Mirtha Schmitz, FRAMING CARPENTER, WINDOW CLEANER [address] [place] [address] Neuromuscular dysfunction of bladder, unspecified Social History Tobacco Use Types Packs/Day Years Used Date Smoking Tobacco: Never Smokeless Tobacco: Never Sex and Gender Information Value Date Recorded Sex Assigned at Not on file Legal Sex Male 6:59 AM CDT Gender Identity Not on file Sexual Orientation Not on file documented as of this encounter Plan of Treatment Not on file documented as of this encounter Procedures Procedure Name Priority Date/Time Associated Diagnosis Comments BASIC METABOLIC PANEL Routine 10/22/2024 9:07 AM RETORT OPERATOR Neuromuscular dysfunction of bladder, unspecified VITAMIN B12 ONLY Routine 10/22/2024 9:07 AM RETORT OPERATOR Neuromuscular dysfunction of bladder, unspecified documented in this encounter Results * Basic Metabolic Panel (10/22/2024 9:07 AM RETORT OPERATOR) Sodium 136 136 - 145 mmol/L 10/22/2024 11:38 AM [facility] Potassium 3.9 3.5 - 5.1 mmol/L 10/22/2024 11:38 AM [facility] Chloride 109 98 - 109 mmol/L 10/22/2024 11:38 AM [facility] CO2 23 20 - 29 mmol/L 10/22/2024 11:38 AM [facility] Anion Gap 4 6 - 16 mmol/L 10/22/2024 11:38 AM [facility] Calcium 9.2 8.4 - 10.4 mg/dL 10/22/2024 11:38 AM [facility] BUN 14 7 - 26 mg/dL 10/22/2024 11:38 AM [facility] Creatinine 0.76 0.73 - 1.18 mg/dL 10/22/2024 11:38 AM [facility] Glucose 92 70 - 100 mg/dL 10/22/2024 11:38 AM [facility] Comment:The given reference range is for the fasting state. Non-fasting reference range for glucose is 70 - 180 mg/dL. GFR, Estimated >60 >60 mL/min/1. 73m2 10/22/2024 11:38 AM [facility] Hours Fasting 13.0 8 - 12 Hours 10/22/2024 11:38 AM [facility] [address] LAB[address]AT[address] Blood Venipuncture / Unknown 10/22/2024 9:07 AM RETORT OPERATOR 10/22/2024 9:07 AM RETORT OPERATOR us Mirtha Schmitz APRN, WINDOW CLEANER LAB_1 Fin al Result Performing Organization Address City/[facility]/ZIP Co de Phone Number [id number] [place] [address] [address] [place] [address], [facility] * Vitamin B12 Only (10/22/2024 9:07 AM RETORT OPERATOR) Vitamin B12 697 213 - 816 pg/mL 10/23/2024 12:32 PM RETORT OPERATOR [facility] Blood Venipuncture / Unknown 10/22/2024 9:07 AM RETORT OPERATOR 10/22/2024 9:07 AM RETORT OPERATOR Mirtha Schmitz APRN, WINDOW CLEANER LAB_1 Fin al Result [facility] [address] [place], [place] [id number], [facility] documented in this encounter Visit Diagnoses Diagnosis Neuromuscular dysfunction of bladder, unspecified documented in this encounter Care Teams Panel Raiser Operator Relationship Specialty Start Date End Date Found, No Pcp, [address] [place] [address] PCP - General 02/23/21 documented as of this encounter
--- OUTSIDE RECORDS SUMMARY | 2024-11-06 20:42 | XMS_ITS | Encounter Summary ---
Author Organization [place] Address [facility] [place] [address] Care Team Providers Care Fountain Pen Nibs Inspector Name Role Phone Isa Rod APRN SUPERVISOR CIGAR MAKING HAND Primary Care Provi ifeanyi Alina Berkowitz PA-C Unavailable Isa Rod APRN SUPERVISOR CIGAR MAKING HAND Unavailable [phone] Jorge Reid MD Unavailable [phone] Lakeisha Aguilera MD Unavailable [phone] Jorge Reid MD Unavailable [phone] Reason for Referral * (Routine) - Pending Review Specialty Diagnoses / Procedures Referred By Contshira t Referred To Contact Diagnoses Cervical stenosis of spinal canal Procedures EMG Jorge Reid MD [address] [place] [address] Phone: tel: fax: Referral ID Status Reason Start Date Expiration Date V isits Requested Visits Authorized [id number] Pending Review 10/17/2024 10/17/2025 1 1 SUPERVISOR PIPE LINES Encounter Details Date Type Department Care Team (Latest Contact Info) Description 10/17/2024 8:00 AM GANG SUPERVISOR PIPE LINES Office Visit [facility] [address] [place] [address] Jorge Reid MD [address] [place] [id number] Spina bifida of lumbosacral region with hydrocephalus (H) (Primary Dx); Cervical stenosis of spinal canal Social History Tobacco Use Types Packs/Day Years [...] re latives? Once a week 06/22/2024 Attends [employer] Services Not on file 06/22 Active Member of Clubs or Organizations Not on f ile 06/22/2024 Attends Club or Organization Meetings Not on will e 06/22/2024 Marital Status Not on file 06/22/2024 PHQ-2 Answer Date Recorded PHQ-2 Score 0 09/08/2024 [facility] [place] [facility] Occupat ional Health - Occupational Stress [...] in an abandoned building, in an overnight fdc, or couch-surfing.) Yes 06/22/2024 Are you worried [...] on file Legal Sex Male 3:09 AM GANG SUPERVISOR PIPE LINES Gender Identity Not on file Sexual Orientation Not on file documented as of this encounter Patient Instructions * Patient Instructions* Jorge Reid MD - 10/17/2024 8:00 AM GANG SUPERVISOR PIPE LINES Make every effort to attend physical therapy appointments regularly. The objective is to 1) optimize your walking safety 2) complete therapy for your SI joint pain and establish an SI joint home therapy regimen and 3) address your right shoulder impingement. If your walking or upper body function continues to deteriorate after a good trial of therapy, we will again investigate the possibility of worsening of either the cervical spine compression or the spina bifida. I will want an EMG of the arms to rule out a mild but active compression of the nerve roots. In the meantime, look into your [employer] resources for wheelchair repair and if you don't have a protocol to get the wheelchair fixed, you should establish with us if the wheelchair breaks, you need to use it substantially more, or you develop worsening shoulder problems with its use. Get a vitamin D lab today. I'll let you know if you need different vitamin D supplement medications. I may order additional labs if your vitamin D remains low. I may order a bone density test or refer your to endocrinology depending on what your levels are. Continue to monitor for worsening urinary spasms or unfamiliar changes with your bladder control, bowel control, blood pressure spiking, drops in blood pressure, sensation, or strength. SUPERVISOR PIPE LINES documented in this encounter Progress Notes * Jorge Reid MD - 10/17/2024 8:00 AM CST [facility] Note Patient Name: Chaim West : 1985 Medical Record: [id number] Interval History: Summary of the previous visit: - Frequent falls during ambulation due to leg weakness, neurosurgery referral was pending and continuing physical therapy. - monitor left shoulder numbness for need for EMG - monitor MSK pain and consider topicals - Dystonia under control - establishing with urology and I was to follow records. - constipation screening - trend status in HEP Interval medical issues: He saw urology: 1-2 UTIs per year, low risk, no antibiotics or augment revision. Will do annual screening at [facility]. Saw neurosurgery: low back pain consistent with bilateral SI joint. Recommended physical therapy, refer back to Dr. Gilliland for management. Low vitamin D at 14, I ordered repeat vitamin D after 6 weeks of supplementation - lab not done yet. Current issues: Physical therapy is going well. He notes less pain while working with physical therapy, but he hasn't seen them for 2-3 weeks because his work schedule is very busy. He plans to ask his physical therapist about SI specific interventions. He walks 3 miles a day, but can only walk 10-12 minutes before joint pain, but more 5 minutes on average. He also gets shooting pain down both legs and they give out, with pins and needles sensation.His legs feels like they've run a marathon and are very wobbly. It takes 20-30 minutes for the legsto come back to full strength. It happens twice a day. This has been happening for 6 or 7 months. This is triggered by standing, walking, or turning when upright. He uses 1 lofstrand crutch. He's sustained multiple falls, and 3 traumatic falls over the past 2 months, falling down the stairs. Now heuses his knees and buttocks when going down the stairs. He is still independent with all ADLs and iADLs, including driving with hand controls. He is still having numbness in his left shoulder, and coughing sends numbness down both arms. His right hand weakness hasn't changed much since 1999. He used to do track and field and threw both shoulders out - ever since then he's been having shoulder issues. These aren't currently exacerbated. He has a [employer] ultralight manual wheelchair, self pay. He doesn't have a repair person. He uses it for longer distances. He doesn't use it every day. He caths every 2-3 hours 24 hours a day. He has incontinence between caths every once in a while, especially when he drinks coffee. He does bladder irrigation at night. His bowel management is still regular. Eating foods with high saturated fats irritates the stomach.He gets occasional diarrhea which is helped with pepto bismol. No severe constipation. He's been taking his vitamin D regularly. His blood pressure has been running on the high end. His baseline is 145/70, but sometimes goes up to 160s or 170s, but not triggered by any activity other than after exercise. He gets a little flushed or dizzy when the blood pressure goes up. This has been going on for a year. This is also triggered by stress, but not by bowel or bladder problems (except by a bladder infection). He continues to d niraj orthostatic hypotension. Medications: Current Outpatient Medications Medication Sig Dispense Refill carbidopa-levodopa (SINEMET) 10-100 MG tablet 1/2 oral twice daily as needed. cyanocobalamin (VITAMIN B-12) 1000 MCG tablet Take 1 tablet by mouth every other day GEMTESA 75 MG TABS tablet Take 1 tablet by mouth daily at 2 pm. KEPPRA 500 MG tablet Take 1,000 mg by mouth 2 times daily Patient reports taking 500mg (1 tablet) PO BID. lisinopril (ZESTRIL) 10 MG tablet Take 1 tablet (10 mg) by mouth daily. 90 tablet 0 tadalafil (CIALIS) 20 MG tablet Take 20 mg by mouth daily as needed vitamin D3 (CHOLECALCIFEROL) 50 mcg (2000 units) tablet Take 1 tablet (50 mcg) by mouth daily. 42 tablet 0 Physical Examiniation: VITAL SIGNS: There were no vitals taken for this visit. BMI: Estimated body mass index is 29.23 kg/m?? as calculated from the following: Height as of 10/15/24: 1.6 m (5' 3). Weight as of 08/13/24: 74.8 kg (165 lb). Gen: NAD, pleasant and cooperative Cardio: regular pulse Pulm: non-labored breathing in room air Abd: benign Ext: WWP, no edema in BLE, no tenderness in calves MSK Tenderness in right subacromial bursa and glenohumeral joint. Abducts right shoulder to 160 and left shoulder to 180. Tenderness in right shoulder with passive abduction to above 160. Full range of motion of IR and ER bilaterally. Tednerness with ER against resistance on right. Tenderness to passive Positive modified de la rosa on right. No contractures of arms. Neuro: Strength Upper Ext Right Left Biceps 5 5 Wrist Ex 5 5 Triceps 5 5 DIP Flex 4 5 ADM 4 5 Lower Ext Right Left Hip Flex 5 5 Knee Ext 5 5 ADF - - EHL - - APF - - Ankle not tested in AFO Reflexes: bilateral hoffmans positive Gait: excessive hip sway to right side with right lofstrand crutch, wide based gait, no excessive valgus knee. Sensory: Sensation Light Touch Right Left C4 2 0 C5 2 2 C6 2 2 C7 2 2 C8 2 2 T1 2 2 T2 2 0 Spasticity Upper Ext Right Left Biceps 0 0 Wrist Flex 0 0 Triceps 0 0 DIP Flex 0 0 Lower Ext Right Left Hip Adductor 0 0 Quadriceps 0 0 Hamstrings 0 0 Gastroc - - Laboratory/Imaging: Recent Labs Lab Test 09/05/24 1252 06/23/24 0853 03/30/22 0848 03/29/22 1120 03/29/22 0845 03/28/22 2148 NA -- 142 140 -- 141 132* POTASSIUM -- 4.3 3.6 -- 3.9 4.5 CHLORIDE -- 110* 108 -- 113* 104 KRISTIN 9.6 9.2 8.7 -- 8.7 9.7 CO2 -- 20* 25 -- 21 15* BUN -- 13.5 25 -- 46* 54* CR -- 0.80 0.90 1.69* 1.98* 3.47* GLC -- 105* 95 -- 93 110* Recent Labs Lab Test 03/30/22 0848 03/28/22 2148 WBC 5.9 15.8* RBC 4.52 5.47 HGB 12.8* 15.6 HCT 38.1* 46.3 MCV 84 85 MCH 28.3 28.5 MCHC 33.6 33.7 RDW 12.9 13.1 PLT 236 348 No lab results found. Recent Labs Lab Test 06/23/24 0853 CHOL 196 LDL 129* HDL 46 TRIG 106 Recent Labs Lab Test 09/05/24 1252 VITDT 14* Repeat Vitamin D Pending Assessment/Plan: 38 year old male who presents for management of cervical myelopathy and lumbar spina bifida with hydrocephalus and ventriculoatrial shunt. He also has neurogenic bladder s/p mitrofanoff procedure, neurogenic bowel s/p colostomy, hip surgery, rotational osteotomies, and calcaneal lengthening. He hada traumatic brain injury in ~1999. . 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 He saw neurosurgery afterward who did not think this was an indication for surgery, but thought instead this was compounded by SI joint pain. No overt neurological warning signs of cervical injury. Monitoring should focus on weakness and loss of function in upper extremities as this will not be confounded by low back pain. - continue physical therapy, and evaluate whether he had a good trial of therapy or if it was aborted due to work obligations. If the latter, eval for repeat physical therapy when his work is less hectic. - if after good PT trial he continues to diminish ambulatory function, restart workup for possible progressive cervical myelopathy #Left shoulder numbness Likely a peripheral nerve injury from a previous shoulder dislocation, localized to likely the axillary nerve. - upper extremity EMG, bilateral, to assess for active cervical radiculopathy # Environmental incompatibility with tetraplegia DME owned: - bilateral ankle foot orthoses - MWC, ultralight - lofstrand crutches DME needs: No modifications required yet, but serially reassess in case his upper extremity issues progress. 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 - no current action yet. # SI Joint Pain, Bilateral Etiologic sources: Likely musculoskeletal rather than neuropathic, secondary to muscle strain because of reduced stabilizing strength that may be related to progressive cervical stenosis. Physical therapy and basic modalities are effective. - already doing SI range of motion exercises with PT # Dystonia Well managed on sinemet, no signs of new cervical spasticity. # Neurogenic Bladder # Bladder Augmentation # Mitrofanoff - Oral Medications: gemtesa 75mg nightly Voiding Schedule: Intermittent cathing every 2-3 hours Last urodynamic study: 1 year ago, don't have the results Established with urology who is doing imaging monitoring. - follow urology records - if new or worsening bladder spasm frequency or intravesical pressure, consider as exacerbated by cervical SCI and manage accordingly # Neurogenic Bowel # Colostomy Functioning well. - screen for worsening constipation or any ileus # Risk for skin breakdown due to SCI # Maurice in both feet with left foot skin graft, healed No major concerns # Neurogenic sexual dysfunction No signs of acute sexual dysfunction # Risk for autonomic dysreflexia (AD) Possibly at risk for autonomic dysreflexia, which would increase suspicion of active cervical spinal cord injury. Mild increases in blood pressure with exercise, equivocal for mild dysreflexia but not diagnostic, but with sentinel symptoms. - if SBP > 170 during episodes or during cathing, suspect dysreflexia and initiate workup for cervical SCI worsening # Risk for accelerated cardiometabolic disease due to tetraplegia Well compensated and in excellent health for his condition due to his active lifestyle. He does aerobic exercise and weight training every day. - trend exercise frequency and body composition each visit #Risk of Osteoporosis Last Vitamin D: 14 in 09/2024 Last DXA: Never, but also lumbar spine / hip may not be DXA standard, which may limit DXA utility. FRAX score: anticipated to be low Managed low vitamin D with supplementation. - repeat Vitamin D today - if low, do metabolic, malabsorption, basic endocrine, and calciuria labs - if deranged, refer to endocrine and consider DXA # Risk for respiratory muscle weakness related to SCI No signs of sleep apnea. Low concern for SCI related issue. - monitor for respiratory infections or new respiratory problems # Follow up: - 3 months Jorge Reid MD I spent a total of 75 minutes on the date of service doing chart review, history and exam, documentation, and further activities as noted above. SUPERVISOR PIPE LINES documented in this encounter Plan of Treatment Upcoming Encounters Date Type Department Care Team (Late st Contact Info) Description 01/16/2025 11:20 AM CDT Office Visit [facility] [place] [address] [place] [address] [address] [place] [phone] Jorge Reid MD [address] [place] [address] 01/27/2025 8:45 AM CDT Office Visit [facility] [place] [address] [place] [address], [address] [place] [phone] Jorge Reid MD [address] [place] [id number] Gelacio Rock MD [address] [place] [address] [id number] [place], [place] [address] 06/26/2025 8:00 AM CDT Office Visit [facility] [id number] [place] [phone] Isa Rod APRN SUPERVISOR CIGAR MAKING HAND [address] [place] [address] Scheduled Orders Name Type Priority Associated Diagnoses Orde r Schedule EMG Neurology Routine Cervical stenosis of spinal canal Expected: 10/17/2024 (Approximate), Expires: 10/17/2025 documented as of this encounter Visit Diagnoses Diagnosis Spina bifida of lumbosacral region with hydrocephalus (H)- Primary Cervical stenosis of spinal canal Spinal stenosis in cervical region documented in this encounter Additional Health Concerns Assessment Noted Time PHQ-9 Depression Total Score: 7 06/22/20 24 2:20 PM CDT documented as of this encounter Care Teams Fountain Pen Nibs Inspector Relationship Specialty Start Date End Date Isa Rod APRN SUPERVISOR CIGAR MAKING HAND [address] [place] [address] PCP - General Family Medicine 06/23/24 Alina Berkowitz PA-C [address] [address] Physician Shellfish Bed Worker Urology 06/24/24 Isa Rod APRN SUPERVISOR CIGAR MAKING HAND [address] [place] [address] Assigned PCP 07/26/24 Jorge Reid MD [address] [place] [address] [id number] Physician Physical Medicine and Rehabilitation 08/18/24 Lakeisha Aguilera MD [facility] [address] [place] [address] Assigned Surgical Provider 09/25/24 Jorge Reid MD [address] [place] [id number] Assigned Neuroscience Provider 09/25/24 documented as of this encounter
--- OUTSIDE RECORDS SUMMARY | 2024-11-06 20:42 | XMS_ITS | Encounter Summary ---
Author Organization [place] Address [facility] [place] [address] Care Team Providers Care Software Engineer Kernel Name Role Phone Isa Rod APRN PLASTER PATTERN CASTER Primary Care Provi ifeanyi Alina Berkowitz PA-C Unavailable [phone] Isa Rod APRN PLASTER PATTERN CASTER Unavailable [phone] Jorge Reid MD Unavailable [phone] Lakeisha Aguilera MD Unavailable [phone] Jorge Reid MD Unavailable [phone] Reason for Visit * Reason Comments Consult Spina bifida of lumb osacral region with hydrocephalus * Consultation (Routine: Next available opening) - Pending Review Specialty Diagnoses / Procedures Referred By Contac t Referred To Contact Neurological Surgery Diagnoses Spina bifida of lumbosacral region with hydrocephalus (H[place] [address] [address] [place] [address] Phone: tel: fax: Referral ID Status Reason Start Date Expiration Date Visits Requested Visits Authorized [id number] Pending Review Assess and Evaluate 4 08/13/2025 1 1 Encounter Details Date Type Department Care Team (Late st Contact Info) Description 10/15/2024 1:40 PM COCONUT CANDY MAKER Office Visit [facility] [place] [id number] [place] [address] Drive [address] [place] [address] Nick Lo MD XXX RETIRED XXX [id number] [place] [address] Jacobo Guido MD [address] [facility] [address] [place], [place] [id number] Pain of right sacroiliac joint (Primary Dx) Social History Tobacco Use Types Packs/Day Years [...] re latives? 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 Gender Identity Not on file Sexual Orientation Not on file documented as of this encounter Last Filed Vital Signs Vital Sign Reading Time Taken Comments Blood Pressure 146/94 10/15/2024 1:38 PM COCONUT CANDY MAKER Pulse 76 10/15/2024 1:38 PM COCONUT CANDY MAKER Temperature - - Respiratory Rate - - Oxygen Saturation 97% 10/15/2024 1:38 PM COCONUT CANDY MAKER Inhaled Oxygen Concentration - - Weight - - Height 160 cm (5' 3) 10/15/2024 1:38 PM COCONUT CANDY MAKER Body Mass Index - - documented in this encounter Progress Notes * Jacobo Guido MD - 10/15/2024 1:40 PM CST HPI: 38-year-old male with a history of a myelomeningocele closed shortly after . His baseline level is L4-L5 neurologic deficit. 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 He has never had control over bowel or bladder function. Over the last year he has noticed more low back pain with tenderness over his low back. This also associates with increased pain with bumps in the road and does feel like he needs to lean offto 1 side. Hard surfaces do exacerbate the pain as well. He has not done any injections into the low back and has done some physical therapy for his low back but nothing to significantly alter the pain yet. He has been taking some tdbs-tlm-qsrhkws medications but not consistently. Has not noticed any of these help. He does note a few episodes where he gets his legs will give out and is associatedwith numbness for a minute or 2 and then with qpjf-ivx-jctbwoj as the symptoms resolved. He does not notice any continuous difficulty with upper extremity fine motor tasks or clumsiness. He does havehistory of dystonia and is on medications for this. He does note his dystonia does seem to improve as he is more active. Current Outpatient Medications Medication Sig Dispense Refill [...] reports taking 500mg (1 tablet) PO BID. tadalafil (CIALIS) 20 MG tablet Take 20 mg by mouth daily as needed vitamin D3 (CHOLECALCIFEROL) 50 mcg (2000 units) tablet Take 1 tablet (50 mcg) by mouth daily. 42 tablet 0 lisinopril (ZESTRIL) 10 MG tablet Take 1 tablet (10 mg) by mouth daily. 90 tablet 0 No current facility-administered medications for this visit. Physical Exam: Vital signs: BP: (!) 146/94 Pulse: 76 SpO2: 97 % Height: 160 cm (5' 3) Estimated body mass index is 29.23 kg/m?? as calculated from the following: Height as of this encounter: 1.6 m (5' 3). Weight as of 08/13/24: 74.8 kg (165 lb). He has full strength in his bilateral upper extremities. Sensation is intact to light touch throughout. He has full strength in his lower extremities and hip flexion and knee extension. Ankles are fused. He has 3 out of 5 strength in knee flexion. He does get pain with palpation over the low back worse on the right side over the right SI joint. Pelvic compression does significantly aggravate the pain. Loading the ipsilateral knee does also exacerbate the pain. Results Reviewed: I personally viewed the images of an MRI of the lumbar spine thoracic spine and cervical spine. TheMRI of the lumbar spine shows a low lumbar defect in the sacrum with prior closure. This does appear to be stable over the last 10+ years. His conus is low-lying ending at L4 without any significant posterior deviation consistent with tethering. No evidence of central canal or foraminal stenosis present. No stenosis or significant abnormalities in the thoracic spine. He does have C5-6 and C6-7 spondylosis with some central canal stenosis most significant at C5-6. This does not appear to be compressing the cord however. Assessment: 38-year-old male with low back pain and history of myelomeningocele. This time his symptoms seem most consistent with right greater than left SI joint pain. His symptoms of his legs giving out could be related to exacerbations and pain of the SI joint versus symptoms due to his dystonia. I do not see any structural new abnormalities to explain the symptoms of his lower back pain on the imaging. Plan: I would for start with physical therapy and then recommended starting with llde-jog-lwabnow NSAIDs such as ibuprofen to try and treat the lower extremity pain. I will contact Dr. Gilliland to see if there is any other treatments that could be targeted towards the right SI joint as well. 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 Estimatedbody mass index is 29.23 kg/m?? as calculated from the following: Height as of this encounter: 5' 3 (1.6 m). Weight as of 08/13/24: 165 lb (74.8 kg).. Body surface area is 1.82 meters squared. BP completed using cuff size: large Severe Pain (7) Rosalva Dinh NUT CANDY MAKER documented in this encounter Plan of Treatment Upcoming Encounters Date Type Department Care Team (Late st Contact Info) Description 01/16/2025 11:20 AM CDT Office Visit [facility] [place] [address] [place] [address] [address] [place] [address] Jorge Reid MD [address] [place] [id number] 01/27/2025 8:45 AM CDT Office Visit [facility] [address] [facility], [address] [place] [phone] Jorge Reid MD [address] [place] [address] [id number] Gelacio Rock MD [address] [place] [address] [id number] [place] [address] 06/26/2025 8:00 AM CDT Office Visit [facility] [address] [place] [phone] Isa Rod APRN PLASTER PATTERN CASTER [address] [place] [address] documented as of this encounter Visit Diagnoses Diagnosis Pain of right sacroiliac joint- Primary Disorders of sacrum documented in this encounter Additional Health Concerns Assessment Noted Time PHQ-9 Depression Total Score: 7 06/22/20 24 2:20 PM CDT documented as of this encounter Care Teams Software Engineer Kernel Relationship Specialty Start Date End Date Isa Rod APRN PLASTER PATTERN CASTER [address] [place] [address] PCP - General Family Medicine 06/23/24 Alina Berkowitz PA-C [address] [address] Physician Health Sciences Manager Urology 06/24/24 Isa Rod APRN PLASTER PATTERN CASTER [address] [place] [address] Assigned PCP 07/26/24 Jorge Reid MD [address] [place] [id number] Physician Physical Medicine and Rehabilitation 08/18/24 Lakeisha Aguilera MD [facility] [address] [place] [address] Assigned Surgical Provider 09/25/24 Jorge Reid MD [address] [place] [address] [id number] Assigned Neuroscience Provider 09/25/24 documented as of this encounter
--- OUTSIDE RECORDS SUMMARY | 2024-11-06 20:42 | XMS_ITS | Encounter Summary ---
Author Organization [place] Address [facility] [address] Care Team Providers Care Foreign Collection Clerk Name Role Phone Isa Rod APRN ENVIRONMENTAL HEALTH SAFETY MANAGER Primary Care Provi ifeanyi Alina Berkowitz PA-C Unavailable [phone] Isa Rod APRN ENVIRONMENTAL HEALTH SAFETY MANAGER Unavailable [phone] Jorge Reid MD Unavailable [phone] Lakeisha Aguilera MD Unavailable [phone] Jorge Reid MD Unavailable [phone] Encounter Details Date Type Department Care Team (Latest Contact Info) Description 10/15/2024 Travel Social History Tobacco Use Types Packs/Day Years [...] re latives? 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 Gender Identity Not on file Sexual Orientation Not on file documented as of this encounter Plan of Treatment Upcoming Encounters Date Type Department Care Team (Late st Contact Info) Description 01/16/2025 11:20 AM CDT Office Visit [address] [place] [address] Jorge Reid MD [address] [place] [address] 01/27/2025 8:45 AM CDT Office Visit [facility] Neurology [facility] [address] [place] [address], [address] [place] [phone] Jorge Reid MD [address] [place] [address] Gelacio Rock MD [address] [place], [place] [id number] [place] [address] 06/26/2025 8:00 AM CDT Office Visit [facility] [address] [place] [phone] Isa Rod APRN ENVIRONMENTAL HEALTH SAFETY MANAGER [address] [place] [address] documented as of this encounter Visit Diagnoses Not on filedocumented in this encounter Additional Health Concerns Assessment Noted Time PHQ-9 Depression Total Score: 7 06/22/20 24 2:20 PM CDT documented as of this encounter Care Teams Foreign Collection Clerk Relationship Specialty Start Date End Date Isa Rod APRN ENVIRONMENTAL HEALTH SAFETY MANAGER [id number] [place] [address] PCP - General Family Medicine 06/23/24 Alina Berkowitz PA-C [address] [address] Physician Solar Lab Technician Urology 06/24/24 Isa Rod APRN ENVIRONMENTAL HEALTH SAFETY MANAGER [address] [place] [address] Assigned PCP 07/26/24 Jorge Reid MD [address] [place] [address] Physician Physical Medicine and Rehabilitation 08/18/24 Lakeisha Aguilera MD [facility] [address] [place], [place] [phone] Assigned Surgical Provider 09/25/24 Jorge Reid MD [address] [place] [address] Assigned Neuroscience Provider 09/25/24 documented as of this encounter
--- OUTSIDE RECORDS SUMMARY | 2024-11-06 20:42 | XMS_ITS | Clinical Summary ---
Author Organization [facility] Address [address] [place] [id number] Care Team Providers Care Field Recorder Name Role Phone RamsayLang healy Primary Care Provider [phone] Allergies Active Allergy Reactions Criticality Noted Date Comments Amoxicillin 04/11/2011 Banana Unknown 04/29/2018 Swollen tongue Cephalexin Hives 03/20/2023 Latex Rash High 12/20/2017 Other Reaction(s): Anaphylaxis rash Levofloxacin 04/11/2011 Morphine 04/11/2011 Nitrofurantoin Hives 03/20/2023 Medications cyanocobalamin 1,000 mcg oral tablet Take 1 tablet (1,000 mcg) by mouth every other day. 2 Active oxyBUTYnin chloride (DITROPAN XL) 10 mg oral extended release tablet 24 HR Take 1 tablet (10 mg) by mouth Daily. Active Tadalafil 20 mg oral tablet TAKE 1 TABLET (20 MG) BY MOUTH ONCE DAILY IF NEEDED FOR ERECTILE DYSFUNCTION. Active Levetiracetam (KEPPRA) 1,000 mg oral tablet Take 1 tablet (1,000 mg) by mouth twice a day. 180 tablet 3 4 Active rizatriptan (MAXALT-ACID BLEACHER) 10 mg oral disintegrating tablet Dissolve 1 tablet (10 mg) in mouth twice a day as needed. May repeat after two hours. Maximum dose 30mg/24 hours. 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 Encounters Date Type Department Care Team Description 08/21/2024 11:20 AM FOREIGN CAR MECHANIC Virtual Visit [facility] [address] [place] [address] Dom Dumas MD Falls frequently (Primary Dx); Cervical spondylosis 08/12/2024 7:15 PM FOREIGN CAR MECHANIC Ancillary Procedure [address] [place] [address] Hydrocephalus, unspecified type (HCC); Falls frequently 08/12/2024 6:30 PM FOREIGN CAR MECHANIC Ancillary Procedure [address] [place] [address] Hydrocephalus, unspecified type (HCC); Falls frequently 08/12/2024 5:45 PM FOREIGN CAR MECHANIC Ancillary Procedure [address] [place] [address] Hydrocephalus, unspecified type (HCC); Falls frequently 08/12/2024 5:00 PM FOREIGN CAR MECHANIC Ancillary Procedure [address] [place] [address] Hydrocephalus, unspecified type (HCC); Falls frequently from Last 3 Months Social History Tobacco Use Types Packs/Day Years Used Date Smoking Tobacco: Never Smokeless Tobacco: Never Tobacco Cessation:Counseling Given: Not Answered Alcohol Use Standard Drinks/Week Comments Not Currently 0 (1 standard drink = 0.6 oz pur e alcohol) Sex and Gender Information Value Date Recorded Sex Assigned at Not on file Legal Sex Male 7:07 PM CDT Gender Identity Not on file Sexual Orientation Not on file Last Filed Vital Signs Vital Sign Reading Time Taken Comments Blood Pressure - - Pulse - - Temperature - - Respiratory Rate - - Oxygen Saturation - - Inhaled Oxygen Concentration - - Weight 65.3 kg (144 lb) 03/20/2023 10:33 AM CDT Height 157.5 cm (5' 2) 03/20/2023 10:33 AM CDT Body Mass Index 26.34 03/20/2023 10:33 AM CDT Plan of Treatment Health Maintenance Due Date Last Done Comments Hepatitis C Screening 1983 Lipid Screening 1985 Anxiety Screening (CARYL-2) 11/01/1984 Depression Assessment (PHQ-2) 11/01/1984 Adult Tetanus Booster 01/15/2006 01/16/1996 COVID-19 Vaccine (2023-2 5 season) 2024 05/10/2021, 04/15/2021 Influenza Vaccine (#1) 2024 07/11/1999 RSV Vaccines (1 - 1-dose 75+ series) 11/01/2058 Pneumococcal Vaccine Aged Out No long er eligible based on patient's age to complete this topic Medical Devices Implanted Type Area Administrative Director Device Identifier Shelf Expiration Date Model / Serial / Lot Ventricular Shunt No Valve-05/02/2001 Implanted:05/02/20 (Quantity not on file) Procedures Procedure Name Priority Date/Time Associated Diagnosis Comments MRI SPINE LUMBAR W/O CON Routine 08/12/2024 6:30 PM FOREIGN CAR MECHANIC Hydrocephalus, unspecified type (HCC) Falls frequently MRI SPINE THORACIC W/O CON Routine 08/12/2024 5:57 PM FOREIGN CAR MECHANIC Hydrocephalus, unspecified type (HCC) Falls frequently MRI SPINE CERVICAL W/O CON Routine 08/12/2024 5:42 PM FOREIGN CAR MECH[employer]IC Hydrocephalus, unspecified type (HCC) Falls frequently MRI BRAIN W/O CON Routine 08/12/2024 5:1 9 PM FOREIGN CAR MECH[employer]IC Hydrocephalus, unspecified type (HCC) Falls frequently from Last 3 Months Results * MRI SPINE LUMBAR W/O CON (08/12/2024 6:30 PM FOREIGN CAR MECHANIC) Anatomical Region Laterality Modality Spine Magnetic Resonan ce 08/12/2024 7:10 PM FOREIGN CAR MECHANIC Impressions 08/12/2024 7:18 PM FOREIGN CAR MECHANIC 1. Stable lumbar spine MRI from 03/08/2015. 2. Spina bifida occulta with myelomeningocele at the upper sacrum extending to the dorsal dysraphism, unchanged. 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 Stable. 3. 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 Stable. 4. Patent lumbar neural foramina. Signed by Dom Dolan M.D. Narrative 08/12/2024 7:18 PM FOREIGN CAR MECHANIC EXAM: MRI SPINE LUMBAR W/O CON 08/12/2024. COMPARISON: 03/08/2015 HISTORY: ICD-10: G91.9 Hydrocephalus, unspecified R29.6 Repeated falls TECHNIQUE: Sagittal FSE T1, sagittal FSE T2, sagittal fat saturated FSE T2, axial FSE T2 and axial T1. FINDINGS: Five lumbar vertebrae are assumed. Spina bifida occulta with myelomeningocele formation at the upper sacrum, extending to the dystrophic posterior elements is unchanged. Low-lying conus terminating at the upper L4 level is without tearing to the dorsal thecal sac, stable. No intraspinal canal lipoma or other mass lesion is identified. Lumbar vertebrae are normal in height and alignment. Marrow signal appears benign. Lumbar intervertebral disc height and hydration are maintained. Upper sacroiliac joints are without significant degeneration. There is no abnormal paraspinal mass. Mild developmentally narrowed AP lumbar spinal canal dimension at L2-3 and L3-4 is unchanged. By intervertebral disc levels: L5-S1: Dorsal dysraphism. No focal disc herniation. Patent osseous central canal and neural foramina. Mild facet arthrosis bilaterally. Stable. L4-5: Patent central canal and neural foramina. Normal disc hydration and morphology. Stable. L3-4: Normal disc hydration and morphology. Mild congenitally narrow AP central canal. Patent neural foramina. Stable. L2-3: Normal disc hydration and morphology. Mild congenitally narrow AP central canal. Patent neural foramina. Stable. L1-L2: Patent central canal and neural foramina. Normal disc hydration and morphology. Stable. Procedure Note Dom Dolan MD - 08/12/2024 EXAM: MRI SPINE LUMBAR W/O CON 08/12/2024. COMPARISON: 03/08/2015 HISTORY: ICD-10: G91.9 Hydrocephalus, unspecified R29.6 Repeated falls TECHNIQUE: Sagittal FSE T1, sagittal FSE T2, sagittal fat saturated FSET2, axial FSE T2 and axial T1. FINDINGS: Five lumbar vertebrae are assumed. Spina bifida occulta withmyelomeningocele formation at the upper sacrum, extending to thedystrophic posterior elements is unchanged. Low-lying conus terminating atthe upper L4 level is without tearing to the dorsal thecal sac, stable. Nointraspinal canal lipoma or other mass lesion is identified. Lumbar vertebrae are normal in height and alignment. Marrow signal appearsbenign. Lumbar intervertebral disc height and hydration are maintained.Upper sacroiliac joints are without significant degeneration. There is noabnormal paraspinal mass. Mild developmentally narrowed AP lumbar spinalcanal dimension at L2-3 and L3-4 is unchanged. By intervertebral disc levels: L5-S1: Dorsal dysraphism. No focal disc herniation. Patent osseouscentral canal and neural foramina. Mild facet arthrosis bilaterally.Stable. L4-5: Patent central canal and neural foramina. Normal disc hydration andmorphology. Stable. L3-4: Normal disc hydration and morphology. Mild congenitally narrow APcentral canal. Patent neural foramina. Stable. L2-3: Normal disc hydration and morphology. Mild congenitally narrow APcentral canal. Patent neural foramina. Stable. L1-L2: Patent central canal and neural foramina. Normal disc hydrationand morphology. Stable. IMPRESSION 1. Stable lumbar spine MRI from 03/08/2015. 2. Spina bifida occulta with myelomeningocele at the upper sacrumextending to the dorsal dysraphism, unchanged. Low-lying conus medullaristerminating at the upper L4 level without tethering to the dorsal thecalsac, intraspinal canal lipoma or other intrathecal lesion. Stable. 3. Mild congenitally narrow AP lumbar spinal canal dimension at L2-3 andL3-4. Stable. 4. Patent lumbar neural foramina. Signed by Dom Dolan M.D. us Dom Dumas MD MRI ORDERABLE Final Res ult * MRI SPINE THORACIC W/O CON (08/12/2024 5:57 PM FOREIGN CAR MECHANIC) Anatomical Region Laterality Modality Spine Magnetic Resonan ce 08/12/2024 7:05 PM FOREIGN CAR MECHANIC Impressions 08/12/2024 7:10 PM FOREIGN CAR MECHANIC 1. Normal thoracic spinal cord. 2. At T4-5, increased but small central disc protrusion without spinal stenosis. 3. Stable remaining multilevel thoracic spondylosis as outlined. 4. Patent central canal and neural foramina throughout the thoracic spine. Signed by Dom Dolan M.D. Narrative 08/12/2024 7:10 PM FOREIGN CAR MECHANIC EXAM: MRI SPINE THORACIC W/O CON 08/12/2024. COMPARISON: 09/12/2015 HISTORY: ICD-10: G91.9 Hydrocephalus, unspecified R29.6 Repeated falls TECHNIQUE: Sagittal FSE T2, sagittal FSE T1, sagittal FSE STIR T2, axial T2 GRE. FINDINGS: The thoracic spinal cord is normal in signal and caliber and without active cord compression. Conus medullaris terminates below L1-L2 and is not included in the field of imaging. Thoracic vertebral alignment is essentially anatomic. Vertebral height is maintained. Marrow signal appears benign. Diffuse intervertebral disc desiccation from T3-4 to T8-9 and at T10-11, not significantly changed. T3-4: Small left paracentral disc protrusion, spinal stenosis. Stable. T4-5: Increased but small central disc protrusion abutting the ventral cord. Ample dorsal subarachnoid space. Patent neural foramina. T5-6: Tiny right paracentral disc protrusion. No spinal stenosis. Stable. T6-7: Small right paracentral disc protrusion abuts and minimally flattens the right ventral cord. Ample dorsal subarachnoid space. Patent neural foramina. Stable. T7-8: Small left paracentral disc protrusion may abut the ventral cord. Ample dorsal subarachnoid space. Patent neural foramina. Stable. T8-9: Tiny central disc protrusion. No spinal stenosis. Stable. T10-11: Low-grade circumferential disc bulging minimally narrows the ventral subarachnoid space. No spinal stenosis. Stable. Remaining thoracic intervertebral discs are without focal herniation. Remaining central canal and neural foramina are patent in the thoracic spine. Procedure Note Dom Dolan MD - 08/12/2024 EXAM: MRI SPINE THORACIC W/O CON 08/12/2024. COMPARISON: 09/12/2015 HISTORY: ICD-10: G91.9 Hydrocephalus, unspecified R29.6 Repeated falls TECHNIQUE: Sagittal FSE T2, sagittal FSE T1, sagittal FSE STIR T2, axialT2 GRE. FINDINGS: The thoracic spinal cord is normal in signal and caliber andwithout active cord compression. Conus medullaris terminates below L1-L2and is not included in the field of imaging. Thoracic vertebral alignment is essentially anatomic. Vertebral height ismaintained. Marrow signal appears benign. Diffuse intervertebral discdesiccation from T3-4 to T8-9 and at T10-11, not significantly changed. T3-4: Small left paracentral disc protrusion, spinal stenosis. Stable. T4-5: Increased but small central disc protrusion abutting the ventralcord. Ample dorsal subarachnoid space. Patent neural foramina. T5-6: Tiny right paracentral disc protrusion. No spinal stenosis.Stable. T6-7: Small right paracentral disc protrusion abuts and minimally flattensthe right ventral cord. Ample dorsal subarachnoid space. Patent neuralforamina. Stable. T7-8: Small left paracentral disc protrusion may abut the ventral cord.Ample dorsal subarachnoid space. Patent neural foramina. Stable. T8-9: Tiny central disc protrusion. No spinal stenosis. Stable. T10-11: Low-grade circumferential disc bulging minimally narrows theventral subarachnoid space. No spinal stenosis. Stable. Remaining thoracic intervertebral discs are without focal herniation.Remaining central canal and neural foramina are patent in the thoracicspine. IMPRESSION 1. Normal thoracic spinal cord. 2. At T4-5, increased but small central disc protrusion without spinalstenosis. 3. Stable remaining multilevel thoracic spondylosis as outlined. 4. Patent central canal and neural foramina throughout the thoracicspine. Signed by Dom Dolan M.D. us Dom Dumas MD MRI ORDERABLE Final Res ult * MRI SPINE CERVICAL W/O CON (08/12/2024 5:42 PM FOREIGN CAR MECHANIC) Anatomical Region Laterality Modality Spine Magnetic Resonan ce 08/12/2024 7:18 PM FOREIGN CAR MECHANIC Impressions 08/12/2024 7:23 PM [employer]EIGN CAR MECHANIC 1. At C5-6, increased broad-based disc osteophyte complex with new left paracentral disc protrusion. Effacement of intrathecal CSF with moderate central canal stenosis and slight flattening of the left ventral cord. Development of moderate left/mild right neural foraminal stenosis. 2. At C6-7, increased broad-based disc osteophyte complex with development of mild to moderate central canal stenosis. Near effacement of intrathecal CSF without cord compression. Mild neural foraminal stenosis bilaterally, new. 3. Lesser cervical spondylosis elsewhere without cervical spinal stenosis, stable. 4. No intrinsic cervical cord signal abnormality. Signed by Dom Dolan M.D. Narrative 08/12/2024 7:23 PM FOREIGN CAR MECHANIC EXAM: MRI SPINE CERVICAL W/O CON 08/12/2024. COMPARISON: 09/12/2015 HISTORY: ICD-10: G91.9 Hydrocephalus, unspecified R29.6 Repeated falls TECHNIQUE: Sagittal FSE T2, sagittal FSE T1, sagittal FSE STIR T2, axial T2 GRE. FINDINGS: The cervical and upper thoracic spinal cord is without intrinsic cord signal abnormality or intramedullary mass lesion. Cervicomedullary junction is normal. Cervical vertebrae are normal in height and alignment. Marrow signal appears benign. Intervertebral disc desiccation, progressed at C6-7 but stable at C5-6. There is no abnormal prevertebral edema or paraspinal mass. By intervertebral disc levels: C2-3: Minor ventral spondylitic ridging. Patent central canal and neural foramina. Stable. C3-4: Minor ventral spondylitic ridging. Patent central canal and neural foramina. Stable. C4-5: Normal. Stable. C5-6: Progression of degeneration with increased broad-based disc osteophyte complex and new left paracentral disc protrusion. Effacement of intrathecal CSF. Low-grade left ventral cord flattening. Uncovertebral hypertrophy with development of moderate left and mild right neural foraminal stenosis. C6-7: Increased broad-based disc osteophyte complex. Near effacement of intrathecal CSF. No active cord compression. Development of mild neural foraminal stenosis bilaterally. C7-T1: Normal. Stable. Procedure Note Dom Dolan MD - 08/12/2024 EXAM: MRI SPINE CERVICAL W/O CON 08/12/2024. COMPARISON: 09/12/2015 HISTORY: ICD-10: G91.9 Hydrocephalus, unspecified R29.6 Repeated falls TECHNIQUE: Sagittal FSE T2, sagittal FSE T1, sagittal FSE STIR T2, axialT2 GRE. FINDINGS: The cervical and upper thoracic spinal cord is withoutintrinsic cord signal abnormality or intramedullary mass lesion.Cervicomedullary junction is normal. Cervical vertebrae are normal in height and alignment. Marrow signalappears benign. Intervertebral disc desiccation, progressed at C6-7 butstable at C5-6. There is no abnormal prevertebral edema or paraspinalmass. By intervertebral disc levels: C2-3: Minor ventral spondylitic ridging. Patent central canal and neuralforamina. Stable. C3-4: Minor ventral spondylitic ridging. Patent central canal and neuralforamina. Stable. C4-5: Normal. Stable. C5-6: Progression of degeneration with increased broad-based discosteophyte complex and new left paracentral disc protrusion. Effacement ofintrathecal CSF. Low- grade left ventral cord flattening. Uncovertebralhypertrophy with development of moderate left and mild right neuralforaminal stenosis. C6-7: Increased broad-based disc osteophyte complex. Near effacement ofintrathecal CSF. No active cord compression. Development of mild neuralforaminal stenosis bilaterally. C7-T1: Normal. Stable. IMPRESSION 1. At C5-6, increased broad-based disc osteophyte complex with new leftparacentral disc protrusion. Effacement of intrathecal CSF with moderatecentral canal stenosis and slight flattening of the left ventral cord.Development of moderate left/mild right neural foraminal stenosis. 2. At C6-7, increased broad-based disc osteophyte complex withdevelopment of mild to moderate central canal stenosis. Near effacement ofintrathecal CSF without cord compression. Mild neural foraminal stenosisbilaterally, new. 3. Lesser cervical spondylosis elsewhere without cervical spinalstenosis, stable. 4. No intrinsic cervical cord signal abnormality. Signed by Dom Dolan M.D. us Dom Dumas MD MRI ORDERABLE Final Res ult * MRI BRAIN W/O CON (08/12/2024 5:19 PM FOREIGN CAR MECHANIC) Anatomical Region Laterality Modality Head Magnetic Resonan ce 08/12/2024 7:36 PM FOREIGN CAR MECHANIC Impressions 08/12/2024 7:41 PM FOREIGN CAR MECHANIC 1. Stable nonenhanced brain MRI from 11/05/2019. 2. D[employer] MIXER HELPER shunt from a left parietal to occipital convexity, with stable ventricular catheter position. Coapted ventricular system without morphologic changes to suggest a shunt malfunction. Stable. 3. Minimal nonspecific supratentorial white matter T2 prolongation probably reflect gliosis from remote NBA PLAYER insult, stable. 4. No new or acute intracranial abnormality. Signed by Dom Dolan M.D. Narrative 08/12/2024 7:41 PM FOREIGN CAR MECHANIC EXAM: MRI BRAIN W/O CON 08/12/2024. COMPARISON: 11/05/2019 HISTORY: ICD-10: G91.9 Hydrocephalus, unspecified R29.6 Repeated falls TECHNIQUE: Sagittal FLAIR T1, axial FLAIR T2, axial fat-saturated FSE T2, axial GRE, axial DWI, coronal FLAIR T2, coronal FSE T2 high-resolution. FINDINGS: DOUGH MIXER HELPER shunt from a left inferior parietal/occipital approach, with catheter traversing to the body of the left lateral ventricle and tip essentially at midline adjacent to the callosal genu, stable. The coapted ventricular system is unchanged. No midline shift, transependymal edema or subdural hygroma is seen. Susceptibility artifacts from the left posterior cerebral scalp reservoir are again noted. No restricted diffusion, gradient signal abnormality or mass is seen. There is no midline shift. Minimal supratentorial white matter T2 pole elongation is stable. The paranasal sinuses and mastoid air cells are clear. Cervicomedullary junction is normal. Dural sinuses are patent. Intravascular flow voids are maintained at the skull base. Procedure Note Dom Dolan MD - 08/12/2024 EXAM: MRI BRAIN W/O CON 08/12/2024. COMPARISON: 11/05/2019 HISTORY: ICD-10: G91.9 Hydrocephalus, unspecified R29.6 Repeated falls TECHNIQUE: Sagittal FLAIR T1, axial FLAIR T2, axial fat-saturated FSE T2,axial GRE, axial DWI, coronal FLAIR T2, coronal FSE T2 high-resolution. FINDINGS: DOUGH MIXER HELPER shunt from a left inferior parietal/occipital approach, withcatheter traversing to the body of the left lateral ventricle and tipessentially at midline adjacent to the callosal genu, stable. The coaptedventricular system is unchanged. No midline shift, transependymal edema orsubdural hygroma is seen. Susceptibility artifacts from the left posteriorcerebral scalp reservoir are again noted. No restricted diffusion, gradient signal abnormality or mass is seen.There is no midline shift. Minimal supratentorial white matter T2 poleelongation is stable. The paranasal sinuses and mastoid air cells are clear. Cervicomedullary junction is normal. Dural sinuses are patent.Intravascular flow voids are maintained at the skull base. IMPRESSION 1. Stable nonenhanced brain MRI from 11/05/2019. 2. D[employer] MIXER HELPER shunt from a left parietal to occipital convexity, with stableventricular catheter position. Coapted ventricular system withoutmorphologic changes to suggest a shunt malfunction. Stable. 3. Minimal nonspecific supratentorial white matter T2 prolongationprobably reflect gliosis from remote NBA PLAYER insult, stable. 4. No new or acute intracranial abnormality. Signed by Dom Dolan M.D. Dom Dumas MD MRI ORDERABLE Final Res ult from Last [address] [place] [phone] Care Teams Field Recorder Relationship Specialty Start Date End Date Lang Ramsay [address] [place] [address] PCP - General Family Medicine 03/20/23
--- OUTSIDE RECORDS SUMMARY | 2024-11-06 20:42 | XMS_ITS | Referral Summary ---
Author Organization [facility] Address [address] [place] [address] Care Team Providers Care Immigration Associate Name Role Phone Lang Ramsay Primary Care Provider [phone] Encounters Date Type Department Care Team Description 08/21/2024 11:20 AM DIRECTOR GLOBAL Virtual Visit [address] [place] [id number] Dom Dumas MD Falls frequently (Primary Dx); Cervical spondylosis 08/12/2024 7:15 PM DIRECTOR GLOBAL Ancillary Procedure [address] [place] [address] Hydrocephalus, unspecified type (HCC); Falls frequently 08/12/2024 6:30 PM DIRECTOR GLOBAL Ancillary Procedure [address] [place] [address] Hydrocephalus, unspecified type (HCC); Falls frequently 08/12/2024 5:45 PM DIRECTOR GLOBAL Ancillary Procedure [address] [place] [address] Hydrocephalus, unspecified type (HCC); Falls frequently 08/12/2024 5:00 PM DIRECTOR GLOBAL Ancillary Procedure [address] [place] [address] Hydrocephalus, unspecified type (HCC); Falls frequently from Last 3 Months Allergies Active Allergy Reactions Criticality Noted Date [...] day. 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 Social History Tobacco Use Types Packs/Day Years [...] 03/20/2023 10:33 AM CDT Plan of Treatment Not on file Medical Devices Implanted Type Area Tool And Die Repairer Device Identifier Shelf Expiration Date Model / Serial / Lot Ventricular Shunt No Valve-05/02/2001 Implanted:05/02/20 01 (Quantity not on file) Procedures Procedure Name Priority Date/Time Associated Diagnosis Comments MRI SPINE LUMBAR W/O CON Routine 08/12/2024 6:30 PM DIRECTOR GLOBAL Hydrocephalus, unspecified type (HCC) Falls frequently MRI SPINE THORACIC W/O CON Routine 08/12/2024 5:57 PM DIRECTOR GLOBAL Hydrocephalus, unspecified type (HCC) Falls frequently MRI SPINE CERVICAL W/O CON Routine 08/12/2024 5:42 PM DIRECTOR GLOBAL Hydrocephalus, unspecified type (HCC) Falls frequently MRI BRAIN W/O CON Routine 08/12/2024 5:1 9 PM DIRECTOR GLOBAL Hydrocephalus, unspecified type (HCC) Falls frequently from Last 3 Months Results * MRI SPINE LUMBAR W/O CON (08/12/2024 6:30 PM DIRECTOR GLOBAL) Anatomical Region Laterality Modality Spine Magnetic Resonan ce 08/12/2024 7:10 PM DIRECTOR GLOBAL Impressions 08/12/2024 7:18 PM DIRECTOR GLOBAL 1. Stable lumbar spine MRI from 03/08/2015. [...] Dom Dolan M.D. Narrative 08/12/2024 7:18 PM DIRECTOR GLOBAL EXAM: MRI SPINE LUMBAR W/O CON 08/12/2024. [...] SPINE THORACIC W/O CON (08/12/2024 5:57 PM DIRECTOR GLOBAL) Anatomical Region Laterality Modality Spine Magnetic Resonan ce 08/12/2024 7:05 PM DIRECTOR GLOBAL Impressions 08/12/2024 7:10 PM DIRECTOR GLOBAL 1. Normal thoracic spinal cord. 2. At T4-5, increased but small central disc protrusion without spinal stenosis. 3. Stable remaining multilevel thoracic spondylosis as outlined. 4. Patent central canal and neural foramina throughout the thoracic spine. Signed by Dom Dolan M.D. Narrative 08/12/2024 7:10 PM DIRECTOR GLOBAL EXAM: MRI SPINE THORACIC W/O CON 08/12/2024. [...] SPINE CERVICAL W/O CON (08/12/2024 5:42 PM DIRECTOR GLOBAL) Anatomical Region Laterality Modality Spine Magnetic Resonan ce 08/12/2024 7:18 PM DIRECTOR GLOBAL Impressions 08/12/2024 7:23 PM DIRECTOR GLOBAL 1. At C5-6, increased broad-based disc osteophyte [...] Dom Dolan M.D. Narrative 08/12/2024 7:23 PM DIRECTOR GLOBAL EXAM: MRI SPINE CERVICAL W/O CON 08/12/2024. [...] MRI BRAIN W/O CON (08/12/2024 5:19 PM DIRECTOR GLOBAL) Anatomical Region Laterality Modality Head Magnetic Resonan ce 08/12/2024 7:36 PM DIRECTOR GLOBAL Impressions 08/12/2024 7:41 PM DIRECTOR GLOBAL 1. Stable nonenhanced brain MRI from 11/05/2019. 2. HAT STOCK LAMINATING MACHINE OPERATOR shunt from a left parietal to occipital convexity, with stable ventricular catheter position. Coapted ventricular system without morphologic changes to suggest a shunt malfunction. Stable. 3. Minimal nonspecific supratentorial white matter T2 prolongation probably reflect gliosis from remote INTEGRATED LOGISTICS OPERATIONS MANAGER insult, stable. 4. No new or acute intracranial abnormality. Signed by Dom Dolan M.D. Narrative 08/12/2024 7:41 PM DIRECTOR GLOBAL EXAM: MRI BRAIN W/O CON 08/12/2024. COMPARISON: 11/05/2019 HISTORY: ICD-10: G91.9 Hydrocephalus, unspecified R29.6 Repeated falls TECHNIQUE: Sagittal FLAIR T1, axial FLAIR T2, axial fat-saturated FSE T2, axial GRE, axial DWI, coronal FLAIR T2, coronal FSE T2 high-resolution. FINDINGS: HAT STOCK LAMINATING MACHINE OPERATOR shunt from a left inferior parietal/occipital approach, [...] FLAIR T2, coronal FSE T2 high-resolution. FINDINGS: HAT STOCK LAMINATING MACHINE OPERATOR shunt from a left inferior parietal/occipital approach, [...] Stable nonenhanced brain MRI from 11/05/2019. 2. HAT STOCK LAMINATING MACHINE OPERATOR shunt from a left parietal to occipital convexity, with stableventricular catheter position. Coapted ventricular system withoutmorphologic changes to suggest a shunt malfunction. Stable. 3. Minimal nonspecific supratentorial white matter T2 prolongationprobably reflect gliosis from remote INTEGRATED LOGISTICS OPERATIONS MANAGER insult, stable. 4. No new or acute intracranial abnormality. Signed by Dom Dolan M.D. us Dom Dumas MD MRI ORDERABLE Final Res ult from Last 3 [place] [address] Care Teams Immigration Associate Relationship Specialty Start Date End Date Lagn Ramsay [address] [place] [address] PCP - General Family Medicine 03/20/23
--- OUTSIDE RECORDS SUMMARY | 2024-11-06 20:42 | XMS_ITS | Encounter Summary ---
Author Organization [facility] Address [facility] [place] [address] Care Team Providers Care Plywood Layup Line Back Feeder Name Role Phone Isa Rod APRN MEDIA CONSULTANT Primary Care Provi ifeanyi Alina Berkowitz PA-C Unavailable Isa Rod APRN MEDIA CONSULTANT Unavailable [phone] Jorge Reid MD Unavailable [phone] Lakeisha Aguilera MD Unavailable [phone] Jorge Reid MD Unavailable [phone] Reason for Visit * Reason Onset Date Comments Previsit 10/01/2024 Encounter Details Date Type Department Care Team (Late st Contact Info) Description 10/01/2024 PRE VISIT [facility] [address] [place] [address] Jacobo Guido MD [address] [address] Previsit Social History Tobacco Use Types Packs/Day Years [...] re latives? Once a week 06/22/2024 Attends Jew Services Not on file 06/22 Active Member of Clubs or Organizations Not on f ile 06/22/2024 Attends Club or Organization Meetings Not on will e 06/22/2024 Marital Status Not on file 06/22/2024 PHQ-2 Answer Date Recorded PHQ-2 Score 0 09/08/2024 [facility] of Occupat ional Health - Occupational Stress [...] Answer Date Recorded Do you have housing? 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 Gilliland *ok per MD REASON FOR VISIT: Spina bifida of lumbosacral region with hydrocephalus PROVIDER: Lata DATE OF APPT: 10/01/2024 NOTES (FOR ALL VISITS) STATUS DETAILS OFFICE NOTE from referring provider Internal Referral and notes in chart OFFICE NOTE from other specialist Scanned into chart [facility] DISCHARGE SUMMARY from hospital N/A DISCHARGE REPORT from ER N/A OPERATIVE REPORT N/A EMG REPORT N/A Injection N/A Physical therapy N/A IMAGING (FOR ALL VISITS) MRI (HEAD, NECK, SPINE) received MRI lumbar/brain/cervical/thoracic 08/12/2024 in [facility] XRAY (SPINE) *NEUROSURGERY* N/A CT (HEAD, NECK, SPINE) N/A R MACHINE OPERATOR R MACHINE OPERATOR documented in this encounter Plan of Treatment Upcoming Encounters Date Type Department Care Team (Late st Contact Info) Description 01/16/2025 11:20 AM CDT Office Visit [facility] [address] [place] [address] Jorge Reid MD [address] [place] [address] 01/27/2025 8:45 AM CDT Office Visit [facility] Neurology [facility] - [address], [address] [place] [phone] Jorge Reid MD [address] [place] [address] Gelacio Rock MD [address] [facility] [id number] [place] [address] 06/26/2025 8:00 AM CDT Office Visit [facility] [address] [place] [address] Isa Rod APRN MEDIA CONSULTANT [address] [place] [address] documented as of this encounter Visit Diagnoses Not on filedocumented in this encounter Additional Health Concerns Assessment Noted Time PHQ-9 Depression Total Score: 7 06/22/20 24 2:20 PM CDT documented as of this encounter Care Teams Plywood Layup Line Back Feeder Relationship Specialty Start Date End Date Isa Rod APRN MEDIA CONSULTANT [address] [place] [address] PCP - General Family Medicine 06/23/24 Alina Berkowitz PA-C [address] [address] Physician Pole Peeling Machine Operator Urology 06/24/24 Isa Rod APRN MEDIA CONSULTANT [address] [place] [address] Assigned PCP 07/26/24 Jorge Reid MD [address] [place] [address] Physician Physical Medicine and Rehabilitation 08/18/24 Lakeisha Aguilera MD [facility] [address] [place] [address] Assigned Surgical Provider 09/25/24 Jorge Reid MD [address] [place] [address] Assigned Neuroscience Provider 09/25/24 documented as of this encounter
--- OUTSIDE RECORDS SUMMARY | 2024-11-06 20:42 | XMS_ITS | Encounter Summary ---
Author Organization [place] Address [facility] [place] [address] Care Team Providers Care News Technical Director Name Role Phone Isa Rod APRN, CNP Primary Care Provi ifeanyi Alina Berkowitz PA-C Unavailable Isa Rod APRN, CNP Unavailable [phone] Jorge Reid MD Unavailable Lakeisha Aguilera MD Unavailable [phone] Jorge Reid MD Unavailable [phone] Reason for Visit * Reason Comments Medication Refill Encounter Details Date Type Department Care Team (Late st Contact Info) Description 10/17/2024 Refill [facility] [address] [place] [address] Isa Rod APRN INSURANCE POLICY ISSUE CLERK [address] [place] [address] Medication Refill Social History Tobacco Use Types Packs/Day Years [...] re latives? Once a week 06/22/2024 Attends Orthodox Services Not on file 06/22 Active Member of Clubs or Organizations Not on f ile 06/22/2024 Attends Club or Organization Meetings Not on will e 06/22/2024 Marital Status Not on file 06/22/2024 PHQ-2 Answer Date Recorded PHQ-2 Score 0 09/08/2024 [facility] of Occupat ional Health - Occupational Stress [...] Date Recorded Do you have housing? 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 Gender Identity Not on file Sexual Orientation Not on file documented as of this encounter Plan of Treatment Upcoming Encounters Date Type Department Care Team (Late st Contact Info) Description 01/16/2025 11:20 AM CDT Office Visit [facility] Pain [facility] [address] [place] [address] [address] [place] [address] Jorge Reid MD [address] [place] [address] 01/27/2025 8:45 AM CDT Office Visit [facility] Neurology [facility] [address] [place] [address], [address] [place] [phone] Jorge Reid MD [address] [place] [address] Gelacio Rock MD [address] [place] [address] [id number] [place] [address] 06/26/2025 8:00 AM CDT Office Visit [facility] [address] [place] [address] Isa Rod APRN INSURANCE POLICY ISSUE CLERK [address] [place] [address] documented as of this encounter Visit Diagnoses Diagnosis Benign essential HTN Essential hypertension, benign documented in this encounter Additional Health Concerns Assessment Noted Time PHQ-9 Depression Total Score: 7 06/22/20 24 2:20 PM CDT documented as of this encounter Care Teams News Technical Director Relationship Specialty Start Date End Date Isa Rod APRN INSURANCE POLICY ISSUE CLERK [address] [place] [address] PCP - General Family Medicine 06/23/24 Alina Berkowitz PA-C [address] [address] Physician Weatherstrip Machine Operator Urology 06/24/24 Isa Rod APRN INSURANCE POLICY ISSUE CLERK [address] [place] [address] Assigned PCP 07/26/24 Jorge Reid MD [address] [place] [address] Physician Physical Medicine and Rehabilitation 08/18/24 Lakeisha Aguilera MD [facility] [address] [place] [address] Assigned Surgical Provider 09/25/24 Jorge Reid MD [address] [place] [address] Assigned Neuroscience Provider 09/25/24 documented as of this encounter
--- OUTSIDE RECORDS SUMMARY | 2024-11-06 20:42 | XMS_ITS | Clinical Summary ---
Author Organization [facility] Address [facility] [place] [address] Care Team Providers Care Fire Crew Worker Name Role Phone Joselito Liz MD Unavailable [phone] Lang Ramsay MD Primary Care Provider Allergies Active Allergy Reactions Criticality Noted Date Comments Amoxicillin Hives High 12/20/2017 Banana *Unknown 04/29/2018 Swollen tongue Cephalexin Hives 03/20/2023 Latex Rash 12/20/2017 Levofloxacin Hives High 12/20/2017 Morphine Other - Describe In Comment Field 12/20/2017 hallucinations Nitrofurantoin Hives 03/20/2023 Medications KEPPRA 500 mg tablet Take 500 mg by mouth 2 times daily. 6 8 Active ciprofloxacin HCl (CIPRO) 500 mg tablet Take 500 mg by mouth 2 times daily if needed for Other (Specify) (as needed if Bladder infxn sympt). Active medication order composerIndicati ons:Colostomy in place (HC) Convatec Sure Fit Colostomy Bags enclosed in pouch 1 1/2 or 38 mm. Needs package of 30 x 4 packages. 120 unit 8 01/30/202 1 Active Vitamin B-12 1,000 mcg tabletIndication s:Vitamin B12 deficiency Take 0.5 Tablets (500 mcg) by mouth once daily. 0 2 Active budesonide (Entocort EC) 3 mg capsuleIndicatio ns:Lymphocytic colitis Take 3 pills once a day for 1 month, Take 2 pills once a day for 1 month, Take 1 pill once a day for 1 month 90 Capsule 2 2 Active Catheter (Ragsdale Catheter) 16 Fr miscIndications: Neurogenic bladder As directed. Coloplast 16 Citizen Of [place] Straight tip - self cath. 100 Each 3 3 Active carbidopa-levodo pa, 10-100 mg, (SINEMET 10-100) 10-100 mg tablet 1/2 oral twice daily as needed. 0 3 Active lisinopriL (PRINIVIL; ZESTRIL) 10 mg tabletIndication s:Benign essential HTN Take 1 Tablet (10 mg) by mouth once daily. 90 Tablet 3 3 Active tadalafiL (CIALIS;ADCIRCA) 20 mg tabletIndication s:Erectile dysfunction, unspecified erectile dysfunction type Take 1 Tablet (20 mg) by mouth once daily if needed for Erectile Dysfunction. 20 Tablet 6 4 Active Active Problems Problem Noted Date Diagnosed Date Lymphocytic colitis 05/01/2022 Overview (05/01/2022): Colonoscopy 04/2022 lymphocytic colitis, SSA, repeat in 5 years Erectile dysfunction 08/22/2018 Tremor 08/22/2018 Recurrent UTI 08/22/2018 Spina bifida of lumbar region with hydrocephalus 04/23/2018 Neurogenic bladder 04/23/2018 Seizure disorder 04/23/2018 Chiari malformation type II 04/23/2018 TBI (traumatic brain injury) 04/23/2018 Benign essential HTN 04/23/2018 Resolved Problems Problem Noted Date Diagnosed Date Resolved Date RUQ abdominal pain 04/03/2019 0 Cholelithiasis 04/03/2019 11/12/2019 Encounters Date Type Department Care Team Description 10/22/2024 Refill [facility] [address] [place] [address] Lang Ramsay MD Refill Request (Tadalafil) from Last 3 Months Immunizations Name Administration Dates Next Due Influenza Virus, Unspecified 07/11/1999 Influenza, IIV3 (Age >=3 years) 07/11/1999 MMR 01/16/1996 MMRV 01/16/1996 Td (Age >=7 Years) 01/16/1996 Family History Medical History Relation Name Comments Kidney disease Father Kidney cancer Maternal Grandmother Cancer Mother Hyperlipidemia Mother Hypertension Mother Kidney cancer Mother Other Other Moms side w/ th yroid dx. Heart attack Paternal Grandfather Cancer-colon No Family History Cancer-prostate No Family History Relation Name Status Comments Father Maternal Grandmother Mother Other Paternal Grandfather Social History Tobacco Use Types Packs/Day Years Used Date Smoking Tobacco: Never Smokeless Tobacco: Never Tobacco Cessation:Counseling Given: No Alcohol Use Standard Drinks/Week Comments Yes 0 (1 standard drink = 0.6 oz pur e alcohol) Rare Maybe once a year PHQ-2 Answer Date Recorded PHQ-2 TOTAL SCORE 1 06/09/2021 Social Connections Answer Date Recorded Do you often feel lonely or isolated from those around you? 0 08/01/2023 Financial Resource Strain Answer Date R ecorded Difficulty of Paying Living Expenses 3 08/01/2023 Difficulty of Paying Living Expenses Not on file 08/01/2023 Food Insecurity Answer Date Recorded Do you worry your food will run out before you are able to buy more? 1 08/01/2023 Transportation Needs Answer Date Record ed Does lack of transportation keep you from medica l appointments? 1 08/01/2023 Does lack of transportation keep you from work, meetings or getting things that you need? 1 08/01/2023 Housing Stability Answer Date Recorded What is your housing situation today? 1 08/01/2023 Sex and Gender Information Value Date Recorded Sex Assigned at Male 06/06/2021 10:51 AM CDT Legal Sex Male 6:12 AM SALES REPRESENTATIVE SALES MANAGER Gender Identity Male 06/06/2021 10:51 AM CDT Sexual Orientation Straight 06/06/2021 10 :51 AM CDT Obstetrics History Last Filed Vital Signs Vital Sign Reading Time Taken Comments Blood Pressure 112/76 11/29/2023 1:57 PM CDT Pulse 60 11/29/2023 1:57 PM CDT Temperature 36.5 C (97.7 F) 11/29/2023 1:57 PM CDT Respiratory Rate 16 11/29/2023 1:57 PM CDT Oxygen Saturation 96% 10/26/2023 1:35 PM SALES REPRESENTATIVE SALES MANAGER Inhaled Oxygen Concentration - - Weight 71.4 kg (157 lb 8 oz) 11/29/2023 1:57 PM CDT Height 158.3 cm (5' 2.32) 06/09/2021 2:37 PM CD T Body Mass Index 28.51 06/09/2021 2:37 PM CDT Plan of Treatment Health Maintenance Due Date Last Done Comments Tdap 11/01/1994 HIV for age 15-65 11/01/1998 Hepatitis C screening for age 18-79 11/01/2001 Tetanus booster 01/15/2006 01/16/1996 BMI (ht and wt on same day) for age 18+ 06/09/2022 06/09/2021, 08/10/2020, 11/12/2019, Additional history exists Depression screening for age 12+ 06/09/2022 06/09/2021, 08/10/2020, 08/10/2020, Additional history exists COVID-19 vaccine series (2023- season) 2024 05/10/2021, 04/15/2021 Influenza for age 9-49 05/04/2024 07/11/1999, 1998 Lipids for age 35-44 06/09/2026 06/09/2021, 11/10/2019, 01/20/2019 Pneumococcal series for age 6-49 Aged Out No longer eligible based on patient's age to complete this topic Procedures Procedure Name Priority Date/Time Associated Diagnosis Comments LIPID PANEL W REFLEX MEASURED LDL Routine 06/09/2021 3:04 PM CDT Hyperlipidemia, unspecified hyperlipidemia type from Last 3 Months or Most Recently Relevant to Health Maintenance Results * (ABNORMAL) LIPID PANEL W REFLEX MEASURED LDL (06/09/2021 3:04 PM CDT) CHOLESTEROL,TOTAL 167 100 - 199 mg/dL 06/09/2021 10:05 PM CDT [facility] TRIGLYCERIDES 101 <150 mg/dL 06/09/2021 10:05 PM CDT [facility] HDL CHOLESTEROL 32(L) >40 mg/dL 10:05 PM CDT [facility] NON-HDL CHOLESTEROL 135 <145 mg/dl 06/09/2021 10:05 PM CDT [facility] CHOL/HDL RATIO 5.22(H) <4.50 06/09/2021 10:05 PM CDT [facility] LDL CHOLESTEROL 115 <=130 mg/dL 06/09/2021 10:05 PM CDT [facility] VLDL CHOLESTEROL 20 <=30 mg/dL 06/09/2021 10:05 PM CDT [facility] PROVIDER ORDERED STATUS RANDOM 06/09/2021 10:05 PM CDT [facility] Blood BLOOD SPECIMEN / Unknown Venipuncture / Unknown 06/09/2021 3:04 PM CDT 06/09/2021 3:05 PM CDT Lang Ramsay MD CHEMISTRY Final Result [facility] [address] [place] [address], from Last 3 Months or Most Recently Relevant to Health Maintenance Insurance [facility] [address] Advance Directives Documents on File Type Date Recorded Patient Farm Manager Expl anation Power of Terrazzo Layer Helper 03/28/2019 12:00 AM 02-28 Healthcare Directive 03/28/2019 12:00 AM * Full Code (Latest Code Status on File) Date Activated Date Inactivated Comments 04/03/2019 6:16 PM 04/05/2019 12:37 PM Care Teams Fire Crew Worker Relationship Specialty Start Date End Date Lang Ramsay MD [address] [place] [address] PCP - General Family Practice 03/21/19 Joselito Liz MD [address] [place] [address] Family Practice 08/15/18
--- OUTSIDE RECORDS SUMMARY | 2024-11-06 20:42 | XMS_ITS | Encounter Summary ---
Author Organization [place] Address [facility] access hospital0 [facility] [place] [address] Care Team Providers Care Dietitian Research Name Role Phone Isa Rod APRN HEAD OF COMMISSION DEPARTMENT Primary Care Provi ifeanyi Alina Berkowitz PA-C Unavailable [phone] Isa Rod APRN HEAD OF COMMISSION DEPARTMENT Unavailable + [phone] Jorge Reid MD Unavailable [phone] Lakeisha Aguilera MD Unavailable [phone] Jorge Reid MD Unavailable [phone] Encounter Details Date Type Department Care Team (Latest Contact Info) Description 10/17/2024 Travel Social History Tobacco Use Types Packs/Day [...] re latives? Once a week 06/22/2024 Attends Pentecostal Services Not on file 06/22 Active Member of Clubs or Organizations Not on f ile 06/22/2024 Attends Club or Organization Meetings Not on will e 06/22/2024 Marital Status Not on file 06/22/2024 PHQ-2 Answer Date Recorded PHQ-2 Score 0 09/08/2024 [facility] [place] of Occupat ional Health - Occupational Stress [...] in an abandoned building, in an overnight long term, or couch-surfing.) Yes 06/22/2024 Are you worried [...] on file Legal Sex Male 3:09 AM LOOM OPERATOR APPRENTICE Gender Identity Not on file Sexual Orientation Not on file documented as of this encounter Plan of Treatment Upcoming Encounters Date Type Department Care Team (Late st Contact Info) Description 01/16/2025 11:20 AM CDT Office Visit [address] [place] [address] Jorge Reid MD 9 [place] [address] 01/27/2025 8:45 AM CDT Office Visit [facility] Neurology [facility] [address] [place] [address], [address] [place] [address] Jorge Reid MD [address] [place] [address] Gelacio Rock MD [address] [place], [place] [id number] [address] 06/26/2025 8:00 AM CDT Office Visit [facility] [address] [place] [address] Isa Rod APRN HEAD OF COMMISSION DEPARTMENT [address] [place] [address] documented as of this encounter Visit Diagnoses Not on filedocumented in this encounter Additional Health Concerns Assessment Noted Time PHQ-9 Depression Total Score: 7 06/22/20 24 2:20 PM CDT documented as of this encounter Care Teams Dietitian Research Relationship Specialty Start Date End Date Isa Rod APRN HEAD OF COMMISSION DEPARTMENT [id number] [place] [address] PCP - General Family Medicine 06/23/24 Alina Berkowitz PA-C [address] [address] Physician Auto Body Mechanic Apprentice Urology 06/24/24 Isa Rod APRN HEAD OF COMMISSION DEPARTMENT [address] [place] [address] Assigned PCP 07/26/24 Jorge Reid MD 9[address] [place] [address] Physician Physical Medicine and Rehabilitation 08/18/24 Lakeisha Aguilera MD [facility] [address] [place], [place] [address] Assigned Surgical Provider 09/25/24 Jorge Reid MD [address] [place] [address] Assigned Neuroscience Provider 09/25/24 documented as of this encounter
--- OUTSIDE RECORDS SUMMARY | 2024-11-06 20:42 | XMS_ITS | Encounter Summary ---
Author Organization [place] Address [facility] [place] [address] Care Team Providers Care Scientific Informatics Project Leader Name Role Phone Isa Rod APRN MEAT MARKET MANAGER Primary Care Provi ifeanyi Alina Berkowitz PA-C Unavailable Isa Rod APRN MEAT MARKET MANAGER Unavailable [phone] Jorge Reid MD Unavailable [phone] Lakeisha Aguilera MD Unavailable [phone] Jorge Reid MD Unavailable [phone] Encounter Details Date Type Department Care Team (Latest Contact Info) Description 10/13/2024 Travel Social History Tobacco Use Types Packs/Day [...] re latives? 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 Gender Identity Not on file Sexual Orientation Not on file documented as of this encounter Plan of Treatment Upcoming Encounters Date Type Department Care Team (Late st Contact Info) Description 01/16/2025 11:20 AM CDT Office Visit [address] [place] [address] Jorge Reid MD 9 [place] [address] 01/27/2025 8:45 AM CDT Office Visit [facility] Neurology [facility] [address] [place] [address], [address] [place] [address] Jorge Reid MD [address] [place] [address] Gelacio Rock MD [address] [place] [id number] [address] 06/26/2025 8:00 AM CDT Office Visit [facility] [address] [place] [address] Isa Rod APRN MEAT MARKET MANAGER [address] [place] [address] documented as of this encounter Visit Diagnoses Not on filedocumented in this encounter Additional Health Concerns Assessment Noted Time PHQ-9 Depression Total Score: 7 06/22/20 24 2:20 PM CDT documented as of this encounter Care Teams Scientific Informatics Project Leader Relationship Specialty Start Date End Date Isa Rod APRN MEAT MARKET MANAGER [id number] [place] [address] PCP - General Family Medicine 06/23/24 Alina Berkowitz PA-C [address] [address] Physician Embroidery Assistant Urology 06/24/24 Isa Rod APRN MEAT MARKET MANAGER [address] [place] [address] Assigned PCP 07/26/24 Jorge Reid MD 909 [place] [address] Physician Physical Medicine and Rehabilitation 08/18/24 Lakeisha Aguilera MD [facility] [address] [place], [place] [address] Assigned Surgical Provider 09/25/24 Jorge Reid MD 909 [place] [address] Assigned Neuroscience Provider 09/25/24 documented as of this encounter
--- OUTSIDE RECORDS SUMMARY | 2024-11-06 20:42 | XMS_ITS | Encounter Summary ---
Author Organization [place] Address Critical access hospital0 [facility] [place] [address] Care Team Providers Care Aeronautical Design Engineer Name Role Phone Isa Rod APRN INTERIOR DESIGN TEACHER Primary Care Provi ifeanyi Alina Berkowitz PA-C Unavailable Isa Rod APRN INTERIOR DESIGN TEACHER Unavailable [phone] Jorge Reid MD Unavailable [phone] Lakeisha Aguilera MD Unavailable [phone] Jorge Reid MD Unavailable [phone] Encounter Details Date Type Department Care Team (Late st Contact Info) Description 10/16/2024 Telephone [facility] [address], [address] [place] [address] Jorge Reid MD [address] [place] [address] Social History Tobacco Use Types Packs/Day Years [...] re latives? 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 PATIONAL THERAPY MANAGER documented in this encounter Plan of Treatment Upcoming Encounters Date Type Department Care Team (Late st Contact Info) Description 01/16/2025 11:20 AM CDT Office Visit [facility] Pain [address] [place] [address] Jorge Reid MD [address] [place] [address] 01/27/2025 8:45 AM CDT Office Visit [facility] Neurology [facility] [address], [address] [place] [phone] Jorge Reid MD [address] [place] [address] Gelaico Rock MD [address] [place] [address] [id number] [place] [address] 06/26/2025 8:00 AM CDT Office Visit [address] [phone] Isa Rod APRN [facility] [address] [place] [address] documented as of this encounter Visit Diagnoses Not on filedocumented in this encounter Additional Health Concerns Assessment Noted Time PHQ-9 Depression Total Score: 7 06/22/20 24 2:20 PM CDT documented as of this encounter Care Teams Aeronautical Design Engineer Relationship Specialty Start Date End Date Isa Rod APRN INTERIOR DESIGN TEACHER [address] [place] [address] PCP - General Family Medicine 06/23/24 Alina Berkowitz PA-C [address] [address] Physician Briquette Machine Operator Helper Urology 06/24/24 Isa Rod APRN INTERIOR DESIGN TEACHER [address] [place] [address] Assigned PCP 07/26/24 Jorge Reid MD [address] [place] [address] Physician Physical Medicine and Rehabilitation 08/18/24 Lakeisha Aguilera MD [facility] [address] [place] [address] Assigned Surgical Provider 09/25/24 Jorge Reid MD [address] [place] [address] Assigned Neuroscience Provider 09/25/24 documented as of this encounter
--- OUTSIDE RECORDS SUMMARY | 2024-11-06 20:42 | XMS_ITS | Encounter Summary ---
Author Organization [place] Address [facility] [place] [address] Care Team Providers Care Client Experience Consultant Name Role Phone Isa Rod APRN SKIN FORMER Primary Care Provi ifeanyi Alina Berkowitz PA-C Unavailable Isa Rod APRN SKIN FORMER Unavailable + [phone] Jorge Reid MD Unavailable [phone] Lakeisha Aguilera MD Unavailable [phone] Jorge Reid MD Unavailable [phone] Encounter Details Date Type Department Care Team (Latest Contact Info) Description 10/01/2024 Travel Social History Tobacco Use Types Packs/Day [...] re latives? 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 Gender Identity Not on file Sexual Orientation Not on file documented as of this encounter Plan of Treatment Upcoming Encounters Date Type Department Care Team (Late st Contact Info) Description 01/16/2025 11:20 AM CDT Office Visit [address] [place] [address] Jorge Reid MD 9 [place] [address] 01/27/2025 8:45 AM CDT Office Visit [facility] Neurology [facility] [address] [place] [address], [address] [place] [address] Jorge Reid MD [address] [place] [address] Gelacio Rock MD [address] [place] [id number] [address] 06/26/2025 8:00 AM CDT Office Visit [facility] [address] [place] [address] Isa Rod APRN SKIN FORMER [address] [place] [address] documented as of this encounter Visit Diagnoses Not on filedocumented in this encounter Additional Health Concerns Assessment Noted Time PHQ-9 Depression Total Score: 7 06/22/20 24 2:20 PM CDT documented as of this encounter Care Teams Client Experience Consultant Relationship Specialty Start Date End Date Isa Rod APRN SKIN FORMER [id number] [place] [address] PCP - General Family Medicine 06/23/24 Alina Berkowitz PA-C [address] [address] Physician Aircraft Maintenance Supervisor Urology 06/24/24 Isa Rod APRN SKIN FORMER [address] [place] [address] Assigned PCP 07/26/24 Jorge Reid MD 9[address] [place] [address] Physician Physical Medicine and Rehabilitation 08/18/24 Lakeisha Aguilera MD [facility] [address] [place], [place] [address] Assigned Surgical Provider 09/25/24 Jorge Reid MD [address] [place] [address] Assigned Neuroscience Provider 09/25/24 documented as of this encounter
--- OUTSIDE RECORDS SUMMARY | 2024-11-06 20:43 | XMS_ITS | Encounter Summary ---
Author Organization [place] Address [facility] [place] [address] Care Team Providers Care Fresh Work Wrapper Layer Name Role Phone Isa Rod APRN CDL B DRIVER Primary Care Provi ifeanyi Alina Berkowitz PA-C Unavailable Isa Rod APRN CDL B DRIVER Unavailable [phone] Jorge Reid MD Unavailable [phone] Lakeisha Aguilera MD Unavailable [phone] Jorge Reid MD Unavailable [phone] Encounter Details Date Type Department Care Team (Latest Contact Info) Description 09/28/2024 Travel Social History Tobacco Use Types Packs/Day [...] re latives? 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 Gender Identity Not on file Sexual Orientation Not on file documented as of this encounter Plan of Treatment Upcoming Encounters Date Type Department Care Team (Late st Contact Info) Description 01/16/2025 11:20 AM CDT Office Visit [address] [place] [address] Jorge Reid MD 9 [place] [address] 01/27/2025 8:45 AM CDT Office Visit [facility] Neurology [facility] [address] [place] [address], [address] [place] [address] Jorge Reid MD 9[address] [place] [address] Gelacio Rock MD [address] [place] [id number] [place] [address] 06/26/2025 8:00 AM CDT Office Visit [facility] [address] [place] [address] Isa Rod APRN CDL B DRIVER [address] [place] [address] documented as of this encounter Visit Diagnoses Not on filedocumented in this encounter Additional Health Concerns Assessment Noted Time PHQ-9 Depression Total Score: 7 06/22/20 24 2:20 PM CDT documented as of this encounter Care Teams Fresh Work Wrapper Layer Relationship Specialty Start Date End Date Isa Rod APRN CDL B DRIVER [id number] [place] [address] PCP - General Family Medicine 06/23/24 Alina Berkowitz PA-C [address] [address] [address] Operator Urology 06/24/24 Isa Rod APRN CDL B DRIVER [address] [place] [address] Assigned PCP 07/26/24 Jorge Reid MD 9[address] [place] [address] Physician Physical Medicine and Rehabilitation 08/18/24 Lakeisha Aguilera MD [facility] [address] [place], [place] [address] Assigned Surgical Provider 09/25/24 Jorge Reid MD 9[address] [place] [address] Assigned Neuroscience Provider 09/25/24 documented as of this encounter
--- OUTSIDE RECORDS SUMMARY | 2024-11-06 20:43 | XMS_ITS | Encounter Summary ---
Author Organization [place] Address [facility] [place] [address] Care Team Providers Care Chopped Strand Operator Name Role Phone Isa Rod APRN BODY AND FRAME MAN Primary Care Provi ifeanyi Alina Berkowitz PA-C Unavailable Isa Rod APRN BODY AND FRAME MAN Unavailable [phone] Jorge Reid MD Unavailable [phone] Lakeisha Aguilera MD Unavailable [phone] Jorge Reid MD Unavailable [phone] Reason for Visit * Reason Comments Medication Refill Encounter Details Date Type Department Care Team (Late st Contact Info) Description 10/22/2024 [facility] [address] [address] Jorge Reid MD [address] [place] [address] Medication Refill Social History Tobacco Use Types [...] Answer Date Recorded PHQ-2 Score 0 09/08/2024 [facility] - [facility]ational Stress Questionnaire Answer [...] in an abandoned building, in an overnight senior care, or couch-surfing.) Yes 06/22/2024 Are you worried [...] on file 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 Gender Identity Not on file Sexual Orientation Not on file documented as of this encounter Plan of Treatment Upcoming Encounters Date Type Department Care Team (Late st Contact Info) Description 01/16/2025 11:20 AM CDT Office Visit [facility] Pain [facility] [address] [place] [address] [address] [place] [address] Jorge Reid MD [address] [place] [address] 01/27/2025 8:45 AM CDT Office Visit [facility] Neurology [facility] [address] [place] [address], [address] [place] [address] Jorge Reid MD [address] [place] [address] Gelacio Rock MD [address] [place] [address] [id number] [place] [address] 06/26/2025 8:00 AM CDT Office Visit [address] [address] Isa Rod APRN BODY AND FRAME MAN [address] [place] [address] documented as of this encounter Visit Diagnoses Diagnosis Spina bifida of lumbosacral region with hydrocephalus (H) Vitamin D deficiency Unspecified vitamin D deficiency documented in this encounter Additional Health Concerns Assessment Noted Time PHQ-9 Depression Total Score: 7 06/22/20 24 2:20 PM CDT documented as of this encounter Care Teams Chopped Strand Operator Relationship Specialty Start Date End Date Isa Rod APRN BODY AND FRAME MAN [address] [place] [address] PCP - General Family Medicine 06/23/24 Alina Berkowitz PA-C [address] [address] Physician Car Supplier Urology 06/24/24 Isa Rod APRN BODY AND FRAME MAN [address] [place] [address] Assigned PCP 07/26/24 Jorge Reid MD [address] [place] [address] Physician Physical Medicine and Rehabilitation 08/18/24 Lakeisha Aguilera MD [facility] [address] [place] [address] Assigned Surgical Provider 09/25/24 Jorge Reid MD [address] [place] [address] Assigned Neuroscience Provider 09/25/24 documented as of this encounter
--- OUTSIDE RECORDS SUMMARY | 2024-11-06 20:43 | XMS_ITS | Clinical Summary ---
Author Organization [facility] Address [address] [place] [address] Care Team Providers Care Plumber Cub Name Role Phone Lang Ramsay Primary Care Physician [phone] Encounter Date(s): 10/22/24 - 10/22/[address] [address] Discharge Disposition: Other Non-PPS Fac Attending Physician: Scott Wills MD Admitting Physician: Scott Wills MD Referring Physician: Scott Wills MD Allergies, Adverse Reactions, Alerts Substance Criticality Severity Reaction Reaction Severity Status amoxicillin hives Active nitrofurantoin Hives Activ e morphine anxiety Active levoFLOXacin hives Active Latex Anaphylaxis Active Keflex Hives Active Discharge Medications cholecalciferol (Vitamin D3 10 mcg (400 intl units) oral tablet) Status: Ordered Start Date: 10/22/24 1 tabs Oral every day. cyanocobalamin (Vitamin B-12 1000 mcg oral tablet) Status: Ordered Start Date: 10/22/24 1 tabs Oral every day. Refills: 11. Ordering provider: Mirtha Schmitz APRN [address] [id number] levETIRAcetam (Keppra 500 mg oral tablet) Status: Ordered Start Date: 03/13/23 TAKE TWO TABLETS BY MOUTH TWICE A DAY. lisinopril (lisinopril 10 mg oral tablet) Status: Ordered Start Date: 10/22/24 1 tabs Oral every day. Other Prescription (gentamic in 480mg/1000ml sterile normal saline) Status: Ordered Start Date: 10/22/24 30 mL pre filled syringe Bladder every day at bedtime. empty & irrigate bladder, then instill 30ml of gentamicin into bladder. let stand overnight.. Refills: 11. Ordering provider: Mirtha Schmitz APRN CNP [facility] [address] [place] [id number] sodium chloride (sodium chlo ride 0.9% irrigation solution) Status: Ordered Start Date: 10/22/24 [address] appendicovesicostomy every day. Refills: 11. Ordering provider: Mirtha Schmitz APRN CNP [address] [id number] tadalafil (Tadalafil (Eqv-Ci huseyin) 20 mg oral tablet) Status: Ordered Start Date: 03/13/23 TAKE 1 TABLET (20 MG) BY MOUTH ONCE DAILY IF NEEDED FOR ERECTILE DYSFUNCTION.. vibegron (Gemtesa 75 mg oral tablet) Status: Ordered Start Date: 10/22/24 1 tabs Oral every day. Refills: 11. Ordering provider: Mirtha Schmitz APRN CNP [address] [id number] Problem List Condition Confirmation Course Effective Dates Status Health Status Informant At high risk for falls 1 Confirmed Active Neurogenic bladder Confirmed Active Colitis Confirmed Active Low vitamin B12 level Confirmed Active Erectile dysfunction Confirmed 08/22/18 Active S/p colostomy Confirmed Active Neurogenic bladder Confirmed Active Recurrent UTI Confirmed Active Spina bifida Confirmed Active Urinary incontinence Confirmed Active Mitrofanoff appendicovesicostomy present Confirmed Active 1Added via Discern Expert [email or web address] [...] ecorded Vital Signs Most recent to oldest [Refer ence Range]: 1 2 Pain Present No actual or suspect ed pain (10/22/24 10:01 AM) Patient was not seen (10/22/24 9:00 AM) Social History Social History Type Response Tobacco Never (less than 100 in lifetime), Exposure to Secondhand Smoke: No. Sex Sex Representation Male (finding) Treatment Plan Future Appointments Appointment Date:05/22/2025 08:30:00 AM Scheduled Provider:Isa Kothari MD Location:[facility] - Clinic Appointment Type:Orthopedics - New Patient Care team information Personnel Name: Lang Ramsay MD Address: [address]
--- OUTSIDE RECORDS SUMMARY | 2024-11-06 20:43 | XMS_ITS | Clinical Summary ---
Author Organization [facility] Address [address] [place] [address] Care Team Providers Care Kineseologist Name Role Phone Found, No Pcp MD Primary Care Provider Unavailab le Source Comments You are receiving this document as you are listed as the primary care provider,follow-up provider, or the patient has been referred to you for consultation.This is in compliance with the Medicare andMedicaid EHR Incentive Program,which states Providers who transition their patient to another setting of careor provider of care or refers their patient to another provider of care shouldprovide summary care record for each transition of care or referral. [facility] Allergies Active Allergy Reactions Criticality Noted Date Comments Amoxicillin Hives High 12/20/2017 Latex Rash 12/20/2017 Levofloxacin Hives High 12/20/2017 Morphine Other, see comments 12/20/2017 goofy and disoriented Medications levETIRAcetam (KEPPRA) 1000 MG tablet Take 1,000 mg by mouth two times a day. Active oxybutynin (DITROPAN XL) 10 MG 24 hour release tablet Take 10 mg by mouth daily. Active lisinopril (ZESTRIL) 10 MG tablet Take 10 mg by mouth daily. Active Active Problems No known active problems Encounters Date Type Department Care Team Description 10/22/[address] [facility] [address] [place] [address] Mirtha Schmitz, ASSISTANT PROFESSOR OF ENGLISH, 911 TELECOMMUNICATOR Neuromuscular dysfunction of bladder, unspecified from Last 3 Months Immunizations Immunization Administration Dates Next Due Influenza, Unspecified Formulation 07/11/1999 Social History Tobacco Use Types Packs/Day Years [...] - Inhaled Oxygen Concentration - - Weight 81.6 kg (180 lb) 12/20/2017 1:14 PM CDT Height 160 cm (5' 3) 12/20/2017 1:14 PM CDT Body Mass Index 31.89 12/20/2017 1:14 PM CDT Plan of Treatment Health Maintenance Due Date Last Done Comments Hep C Screening (Preventive Services) 1983 DTaP/Tdap/Td (2 - Tdap) 01/17/1996 01/16/1996 HIV Screening (Preventive Services) 1999 Adult Preventive Visit 11/01/2001 HepB (1) 11/01/2002 Cholesterol 11/01/2018 06/18/2003, 06/18/2003 COVID-19 Vaccine ( - 2023-2 5 season) 2024 Influenza (#1) 2024 07/11/1999 Zoster/Shingles (1 of 2) 11/01/2033 HPV Vaccine Aged Out No longer eligi ble based on patient's age to complete this topic HepA Aged Out No longer eligi ble based on patient's age to complete this topic Hib Aged Out No longer eligi ble based on patient's age to complete this topic IPV (Polio) Aged Out No longer eligi ble based on patient's age to complete this topic MCV4 Aged Out No longer eligi ble based on patient's age to complete this topic Meningococcal B Aged Out No longer el igible based on patient's age to complete this topic Pneumococcal Aged Out No longer eligi ble based on patient's age to complete this topic Procedures Procedure Name Priority Date/Time Associated Diagnosis Comments BASIC METABOLIC PANEL Routine 10/22/2024 9:07 AM SURGICAL INSTRUMENTS INSPECTOR Neuromuscular dysfunction of bladder, unspecified VITAMIN B12 ONLY Routine 10/22/2024 9:07 AM SURGICAL INSTRUMENTS INSPECTOR Neuromuscular dysfunction of bladder, unspecified CHOLESTEROL, TOTAL AND HDL Routine 06/18/2003 3:10 PM CDT from Last 3 Months or Most Recently Relevant to Health Maintenance Results * Basic Metabolic Panel (10/22/2024 9:07 AM [facility]) Sodium 136 136 - 145 mmol/L 10/22/2024 11:38 AM [facility] Potassium 3.9 3.5 - 5.1 mmol/L 10/22/2024 11:38 AM [facility] Chloride 109 98 - 109 mmol/L 10/22/2024 11:38 AM [facility] CO2 23 20 - 29 mmol/L 10/22/2024 11:38 AM [facility] Anion Gap 4 6 - 16 mmol/L 10/22/2024 11:38 AM [facility] Calcium 9.2 8.4 - 10.4 mg/dL 10/22/2024 11:38 AM [facility] BUN 14 7 - 26 mg/dL 10/22/2024 11:38 AM [facility] Creatinine 0.76 0.73 - 1.18 mg/dL 10/22/2024 11:38 AM [facility] Glucose 92 70 - 100 mg/dL 10/22/2024 11:38 AM [facility] Comment:The given reference range is for the fasting state. Non-fasting reference range for glucose is 70 - 180 mg/dL. GFR, Estimated >60 >60 mL/min/1. 73m2 10/22/2024 11:38 AM [facility] Hours Fasting 13.0 8 - 12 Hours 10/22/2024 11:38 AM [facility] [address] LABORATORY Blood Venipuncture / Unknown 10/22/2024 9:07 AM SURGICAL INSTRUMENTS INSPECTOR 10/22/2024 9:07 AM [facility] us Mirtha Schmitz APRN, 911 TELECOMMUNICATOR LAB_1 Fin al Result [address] [address], [facility] [address] [place] [address], [facility] * Vitamin B12 Only (10/22/2024 9:07 AM SURGICAL INSTRUMENTS INSPECTOR) Vitamin B12 697 213 - 816 pg/mL 10/23/2024 12:32 PM SURGICAL INSTRUMENTS INSPECTOR [facility] Blood Venipuncture / Unknown 10/22/2024 9:07 AM SURGICAL INSTRUMENTS INSPECTOR 10/22/2024 9:07 AM SURGICAL INSTRUMENTS INSPECTOR Mirtha Schmitz APRN, 911 TELECOMMUNICATOR LAB_1 Fin al Result [facility] CEN[facility]AL LAB [address] * Cholesterol, Total and HDL (06/18/2003 3:10 PM CDT) Cholesterol/HDL Ratio Screen 4.8 No normal range HP CONVERSION HDL Cholesterol 49 40 - 60 mg/dL HP CONVERSION 06/18/2003 3:10 PM CDT Fred Williamson MD LAB_1 Final Result Performing Organization Address [facility] Co de Phone Number HP CONVERSION from Last 3 Months or Most Recently Relevant to Health Maintenance Insurance [facility] Care Teams Kineseologist Relationship Specialty Start Date End Date Found, No Pcp, [address] [place] [address] PCP - General 02/23/21
--- OUTSIDE RECORDS SUMMARY | 2024-11-06 20:43 | XMS_ITS | Encounter Summary ---
Author Organization [facility] Address [facility] [place] [address] Care Team Providers Care Car Body Inspector Name Role Phone Isa Rod APRN PROPOSAL MANAGER Primary Care Provi ifeanyi Alina Berkowitz PA-C Unavailable Isa Rod APRN PROPOSAL MANAGER Unavailable [phone] Jorge Reid MD Unavailable Lakeisha Aguilera MD Unavailable [phone] Jorge Reid MD Unavailable [phone] Encounter Details Date Type Department Care Team (Late st Contact Info) Description 11/03/2024 Telephone [facility] [address] , [address] [place] [address] [place] [address] [place] [address] Social History Tobacco Use Types Packs/Day Years [...] re latives? 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 Gender Identity Not on file Sexual Orientation Not on file documented as of this encounter Plan of Treatment Upcoming Encounters Date Type Department Care Team (Late st Contact Info) Description 01/16/2025 11:20 AM CDT Office Visit [facility] [place] [address] [place] [address] [address] [place] [phone] Jorge Reid MD [address] [place] [address] [id number] 01/27/2025 8:45 AM CDT Office Visit [facility] [address] [place] [address], [address] [place] [phone] Jorge Reid MD [address] [place] [address] [phone] Gelacio Rock MD [address] [place] [address] [id number] [place] [address] 06/26/2025 8:00 AM CDT Office Visit [address] [address] Isa Rod APRN PROPOSAL MANAGER [address] [place] [address] documented as of this encounter Visit Diagnoses Not on filedocumented in this encounter Additional Health Concerns Assessment Noted Time PHQ-9 Depression Total Score: 7 06/22/20 24 2:20 PM CDT documented as of this encounter Care Teams Car Body Inspector Relationship Specialty Start Date End Date Isa Rod APRN PROPOSAL MANAGER [id number] [place] [address] PCP - General Family Medicine 06/23/24 Alina Berkowitz PA-C [address] [address] Physician Flight Communications Specialist Urology 06/24/24 Isa Rod APRN PROPOSAL MANAGER [address] [place] [address] Assigned PCP 07/26/24 Jorge Reid MD [address] [place] [address] [phone] Physician Physical Medicine and Rehabilitation 08/18/24 Lakeisha Aguilera MD [facility] [address] [facility] [place] [address] Assigned Surgical Provider 09/25/24 Jorge Reid MD [address] [place] [address] [id number] Assigned Neuroscience Provider 09/25/24 documented as of this encounter
--- OUTSIDE RECORDS SUMMARY | 2024-11-06 20:43 | XMS_ITS | Clinical Summary ---
Author Organization [facility] Address [address] [place] [address] Care Team Providers Care Salesforce Business Analyst Name Role Phone Lagn Ramsay Malini Primary Care Physician [phone] Encounter Date(s): 10/22/24 - 10/22/[address] [address] Encounter Diagnosis Neurogenic bladder(Discharge Diagnosis) - 10/22/24 Mitrofanoff appendicovesicostomy present(Discharge Diagnosis) - 10/22/24 History of recurrent UTI (urinary tract infection)(Discharge Diagnosis) - 10/22/24 Neurogenic bowel(Discharge Diagnosis) - 10/22/24 History of kidney stones(Discharge Diagnosis) - 10/22/24 Low vitamin B12 level(Discharge Diagnosis) - 10/22/24 Spina bifida(Discharge Diagnosis) - 10/22/24 Urinary retention(Discharge Diagnosis) - 10/22/24 Urinary incontinence(Discharge Diagnosis) - 10/22/24 History of bladder stone(Discharge Diagnosis) - 10/22/24 S/p colostomy(Discharge Diagnosis) - 10/22/24 Discharge Disposition: Home or Self Care Attending Physician: Mirtha Schmitz APRN CNP Admitting Physician: Mirtha Schmitz APRN CNP Referring Physician: Mirtha Schmitz APRN CNP Allergies, Adverse Reactions, Alerts Substance Criticality Severity [...] 11. Ordering provider: Mirtha Schmitz APRN CNP [address] [phone] levETIRAcetam (Keppra 500 mg oral tablet) Status: [...] 11. Ordering provider: Mirtha Schmitz APRN CNP [facility] [address] [place] [address] [phone] sodium chloride (sodium chlo ride 0.9% irrigation solution) Status: Ordered Start Date: 10/22/24 [address] appendicovesicostomy every day. Refills: 11. Ordering provider: Mirtha Schmitz APRN CNP [address] [phone] tadalafil (Tadalafil (Eqv-Ci huseyin) 20 mg oral tablet) Status: Ordered Start Date: 03/13/23 TAKE 1 TABLET (20 MG) BY MOUTH ONCE DAILY IF NEEDED FOR ERECTILE DYSFUNCTION.. vibegron (Gemtesa 75 mg oral tablet) Status: Ordered Start Date: 10/22/24 1 tabs Oral every day. Refills: 11. Ordering provider: Mirtha Schmitz APRN CNP [address] [phone] Problem List Condition Confirmation Course Effective Dates [...] Discern Expert ADD_HIGHRISKFALL_PROBLEM Rule. Hospital Discharge Diagnosis History of bladder stone(Discharge Diagnosis) - 10/22/24 History of kidney stones (Discharge Diagnosis) - 10/22/24 History of recurrent UTI (urinary tract infection)(Discharge Diagnosis) - 10/22/24 Low vitamin B12 level(Discharge Diagnosis) - 10/22/24 Mitrofanoff appendicovesicostomy present(Discharge Diagnosis) - 10/22/24 Neurogenic bladder(Discharge Diagnosis) - 10/22/24 Neurogenic bowel(Discharge Diagnosis) - 10/22/24 S/p colostomy(Discharge Diagnosis) - 10/22/24 Spina bifida(Discharge Diagnosis) - 10/22/24 Urinary incontinence(Discharge Diagnosis) - 10/22/24 Urinary retention(Discharge Diagnosis) - 10/22/24 (This Visit) Procedures Procedure Date Related Diagnosis [...] Most recent to oldest [Reference Range]: 1 Temperature Temporal Artery [36.5-38 Deg C] 36.4 Deg C *LOW* (10/22/24 8:21 AM) Pain Present Yes, provider notifi ed (10/22/24 8:32 AM) Able to self report Yes (10/22/24 8:32 AM) able to use numeric rating scale Yes (10/22/24 8:32 AM) Results Laboratory List Name Date Basic Metabolic Panel (BUN,Na,K,Cl,CO2,G lambert,Creat,GFR,Ca,ANION) 10/22/24 Most recent to oldest [Reference Range]: 1 BUN [7-26 mg/dL] 14 mg/dL (10/22/24 9:07 AM) Sodium Level [136-145 mmol/L] 136 mmol/L (10/22/24 9:07 AM) CO2 [20-29 mmol/L] 23 mmol/L (10/22/24 9:07 AM) Chloride Level [98-109 mmol/L] 109 mmol/ L (10/22/24 9:07 AM) Creatinine Level [0.73-1.18 mg/dL] 0.76 mg/dL (10/22/24 9:07 AM) Hours Fasting [8-12] 13.0 (10/22/24 9:07 AM) Calcium [8.4-10.4 mg/dL] 9.2 mg/dL (10/22/24 9:07 AM) Glucose, Random [70-100 mg/dL] 92 mg/dL 1 (10/22/24 9:07 AM) Anion Gap (calc.) [6-16 mmol/L] 4 mmol/L (10/22/24 9:07 AM) Potassium [3.5-5.1 mmol/L] 3.9 mmol/L (10/22/24 9:07 AM) GFR, Estimated [>60] >60 (10/22/24 9:07 AM) 1Result Comment: The given reference range is for the fasting state. Non-fasting reference range forglucose is 70 - 180 mg/dL. Social History Social History Type Response Tobacco Never (less than 100 in lifetime), Exposure to Secondhand Smoke: No. Sex Sex Representation Male (finding) Treatment Plan Future Appointments Appointment Date:05/22/2025 08:30:00 AM Scheduled Provider:Isa Kothari MD Location:[facility] Appointment Type:Orthopedics - New Patient Care team information Personnel Name: Lang Ramsay MD Address: [address]
--- NOTE | 2024-11-06 22:02 | ED.LOWEXIN ---
HPI - Extremity Injury (Lower) General Chief Complaint: Extremity Pain/Injury, Lower Stated Complaint: R foot injury Time Seen by Provider: 11/06/24 22:00 History of Present Illness HPI Narrative: This 39-year-old male comes in for evaluation of an injury to his right foot. 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 He does not have any sensation in his lower extremities. Yesterday he fell in the shower and today he noted swelling and erythema across his toes of his right foot. Related Data Home Medications ?Medication ?Instructions ?Recorded ?Confirmed colostomy bags 02/26/23 levetiracetam 500 mg tablet 500 mg PO BID 11/06/24 11/06/24 (Keppra) lisinopril 10 mg tablet 10 mg PO DAILY 11/06/24 11/06/24 tadalafil 20 mg tablet 20 mg PO DAILY PRN intercourse 11/06/24 11/06/24 vibegron 75 mg tablet (Gemtesa) 75 mg PO DAILY 11/06/24 11/06/24 Allergies Allergy/AdvReac Type Severity Reaction Status Date / Time cephalexin (From Keflex) Allergy Hives Verified 02/23/23 19:22 nitrofurantoin (From Allergy Rash Verified 02/25/23 12:57 Macrobid) amoxicillin AdvReac Severe Verified 02/19/23 14:06 latex AdvReac Severe Verified 02/19/23 14:06 levofloxacin AdvReac Severe Verified 02/19/23 14:06 morphine AdvReac Severe Verified 02/19/23 14:06 Penicillins AdvReac Severe Verified 02/19/23 14:06 Review of Systems Status of ROS: Reports: 10 or more systems reviewed and unremarkable except as noted in History and below Narrative: Constitutional: No fevers, no weight gain or loss. Eyes: No discharge. No vision changes. HENT: No congestion, no sore throat, no ear pain. Cardiovascular: No chest pain, no palpitations. Respiratory: No shortness of breath, no wheezes, no cough. Gastrointestinal: No abdominal pain, no vomiting, no diarrhea. Genitourinary: No dysuria, no hematuria. Musculoskeletal: Spina bifida a affects with anesthesia of the lower extremities and ankle fusion of the right ankle. Skin: No rashes, no pruritis. Neurological: No dizziness, weakness, sensory change, speech change. Endo/Heme/Allergies: No bruising or bleeding. No polydipsia. Pysch: no suicidality, no anxiety, no insomnia. All other systems reviewed and are negative. [facility] Social History Smoking Status: Never smoker Do you use any of these nicotine containing products: None Second hand tobacco smoke exposure: No How often do you have a drink containing alcohol: never How often do you have six or more drinks on one occasion: Never AUDIT-C Alcohol total score: 0 Non-prescribed substance use: denies use service: No Exam Narrative: Exam Narrative: Constitutional: Well-developed, well-nourished, no acute distress. HEENT: Normocephalic, atraumatic. Neck: Normal range of motion. Nontender. Supple. Heart: Regular. No murmurs. Normal rate. Intact distal pulses. Lungs: Clear to auscultation. No chest discomfort. No wheezes, rhonchi, or rales. Abdomen: Normal bowel sounds. Nontender. No rebound tenderness. Genitalia: Deferred. Back: No midline tenderness. Normal range of motion. Extremities: Bruising across the dorsal aspect of the right MP joints of his foot. Skin: Intact. No rash. Warm. No erythema or pallor. Neurologic: No altered sensation. No weakness. Alert and oriented. Psychiatric: No suicidality. No anxiety or depression. No insomnia. Nursing notes and vitals signs are reviewed. Const: Vital Signs, click to edit/add: Vital Signs - 24 hr 11/06/24 20:40 Temperature 98.6 F Pulse Rate [Pulse Oximeter] 93 Respiratory Rate 16 Blood Pressure [Ri ght Upper Arm] 144/94 H Pulse Oximetry 97 Oxygen Delivery Me thod Room Air Course Vital Signs Vital signs: Initial Vital Signs Temperature 98.6 F 11/06/24 20:40 Temperature Source Temporal Artery Scan 11/06/24 20:40 Pulse Rate 93 11/06/24 20:40 Respiratory Rate 16 11/06/24 20:40 Blood Pressure 144/94 H 11/06/24 20:40 Blood Pressure Mean 110 H 11/06/24 20:40 Blood Pressure Position Sitting 11/06/24 20:40 Pulse Oximetry 97 11/06/24 20:40 Oxygen Delivery Method Room Air 11/06/24 20:40 Vital Signs Temperature 98.6 F 11/06/24 20:40 Pulse Rate 93 11/06/24 20:40 Respiratory Rate 16 11/06/24 20:40 Blood Pressure 144/94 H 11/06/24 20:40 Pulse Oximetry 97 11/06/24 20:40 Oxygen Delivery Method Room Air 11/06/24 20:40 Temperature 98.6 F 11/06/24 20:40 Pulse Rate 93 11/06/24 20:40 Respiratory Rate 16 11/06/24 20:40 Blood Pressure 144/94 H 11/06/24 20:40 Pulse Oximetry 97 11/06/24 20:40 Oxygen Delivery Method Room Air 11/06/24 20:40 MDM - Extremity Injury (Lower) MDM Narrative Medical decision making narrative: This patient has injury to his right foot with some bruising. X-ray images show no sign of fracture. The patient does wear a foot brace for ambulating and typically ambulates on his heel. His ankle joint is fused and not flexible. He is reassured to know that there is no fracture. He does not have any sensations so he did not know that there was an injury until looking at his foot today. He is okay to return home and to continue current plans. Imaging Data XR R Foot: Radiologist's impression: No acute displaced fracture or malalignment. 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 Diffuse soft tissue swelling of the foot predominantly in the forefoot and worrisome. Joint spaces are maintained. Bony mineralization is age appropriate. Discharge Plan Discharge Clinical Impression: Contusion of foot, right Patient Disposition: Home, Self-Care Additional Instructions: Activity as tolerated. Follow up with MD return if worsening symptoms occur. Prescriptions: No Action lisinopril 10 mg tablet 10 mg PO DAILY levetiracetam [Keppra] 500 mg tablet 500 mg PO BID tadalafil 20 mg tablet 20 mg PO DAILY PRN (Reason: intercourse) Gemtesa 75 mg tablet 75 mg PO DAILY (DME) colostomy bags Misc See Rx Instructions .Route Rx Instructions: As directed Follow Up/Referrals: Lang Ramsay MD [Primary Care Provider] - Stand Alone Forms: [facility] Info Instructions
--- OUTSIDE RECORDS SUMMARY | 2024-11-06 22:23 | XMS_ITS | Clinical Summary ---
Author Organization [facility] [employer] [facility] Address [facility] [place] [address] Care Team Providers Care Test Car Driver Name Role Phone Joselito Liz MD Unavailable [phone] Lang Ramsay MD Primary Care Provider [...] miscIndications: Neurogenic bladder As directed. Coloplast 16 Angolan Straight tip - self cath. 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 Gender Identity Male 06/06/2021 10:51 AM CDT Sexual Orientation Straight 06/06/2021 10 :51 AM CDT Obstetrics History Last Filed Vital Signs Vital Sign Reading Time Taken Comments Blood Pressure 112/76 11/29/2023 1:57 PM CDT Pulse 60 11/29/2023 1:57 PM CDT Temperature 36.5 C (97.7 F) 11/29/2023 1:57 PM CDT Respiratory Rate 16 11/29/2023 1:57 PM CDT Oxygen Saturation 96% 10/26/2023 1:35 PM SHIRT HEMMER Inhaled Oxygen Concentration - - Weight 71.4 [...] - 199 mg/dL 06/09/2021 10:05 PM CDT [facility] TRIGLYCERIDES 101 <150 mg/dL 06/09/2021 10:05 PM CDT [facility] HDL CHOLESTEROL 32(L) >40 mg/dL 10:05 PM CDT [facility] NON-HDL CHOLESTEROL 135 <145 mg/dl 06/09/2021 10:05 PM CDT [facility] CHOL/HDL RATIO 5.22(H) <4.50 06/09/2021 10:05 PM CDT [facility] LDL CHOLESTEROL 115 <=130 mg/dL 06/09/2021 10:05 PM CDT [facility] VLDL CHOLESTEROL 20 <=30 mg/dL 06/09/2021 10:05 PM CDT [facility] PROVIDER ORDERED STATUS RANDOM 06/09/2021 10:05 PM CDT [facility] TRA [facility] Blood BLOOD SPECIMEN / Unknown Venipuncture / Unknown 06/09/2021 3:04 PM CDT 06/09/2021 3:05 PM CDT Lang Ramsay MD CHEMISTRY Final Result [facility] [address] [place] [address], from Last 3 Months or Most Recently Relevant to Health Maintenance Insurance [facility] [address] Advance Directives Documents on File Type Date Recorded Patient Life Skills Worker Expl anation Power of Suction Operator 03/28/2019 12:00 AM 02-28 Healthcare Directive 03/28/2019 12:00 AM * Full Code (Latest Code Status on File) Date Activated Date Inactivated Comments 04/03/2019 6:16 PM 04/05/2019 12:37 PM Care Teams Test Car Driver Relationship Specialty Start Date End Date Lang Ramsay MD [address] [place] [address] PCP - General Family Practice 03/21/19 Joselito Liz MD [address] [place] [address] Family Practice 08/15/18
--- OUTSIDE RECORDS SUMMARY | 2024-11-06 22:24 | XMS_ITS | Encounter Summary ---
Author Organization [place] Address [facility]ly [facility] [place] [address] Care Team Providers Care Loom Control Chain Builder Name Role Phone Isa Rod APRN LENS POLISHER HAND Primary Care Provi ifeanyi Alina Berkowitz PA-C Unavailable Isa Rod APRN LENS POLISHER HAND Unavailable + [phone] Jorge Reid MD Unavailable [phone] Lakeisha Aguilera MD Unavailable [phone] Jorge Reid MD Unavailable [phone] Reason for Visit * Reason Onset Date Comments Previsit 10/01/2024 Encounter Details Date Type Department Care Team (Late st Contact Info) Description 10/01/2024 PRE VISIT [facility] [address] [place] [address] Jacobo Guido MD [address] [address] Previsit Social History Tobacco Use [...] re latives? 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 Gilliland *ok per MD REASON FOR VISIT: Spina bifida of lumbosacral region with hydrocephalus PROVIDER: Lata DATE OF APPT: 10/01/2024 NOTES (FOR ALL VISITS) STATUS DETAILS OFFICE NOTE from referring provider Internal Referral and notes in chart OFFICE NOTE from other specialist Scanned into chart [facility] DISCHARGE SUMMARY from hospital N/A DISCHARGE REPORT from ER N/A OPERATIVE REPORT N/A EMG REPORT N/A Injection N/A Physical therapy N/A IMAGING (FOR ALL VISITS) MRI (HEAD, NECK, SPINE) received MRI lumbar/brain/cervical/thoracic 08/12/2024 in [facility] XRAY (SPINE) *NEUROSURGERY* N/A CT (HEAD, NECK, SPINE) N/A TRONICS WARFARE TECHNICIAN TRONICS WARFARE TECHNICIAN documented in this encounter Plan of Treatment Upcoming Encounters Date Type Department Care Team (Late st Contact Info) Description 01/16/2025 11:20 AM CDT Office Visit [facility] [address] [place] [address] Jorge Reid MD [address] [place] [address] 01/27/2025 8:45 AM CDT Office Visit [facility] Neurology [facility] - [address], [address] [place] [address] Jorge Reid MD [address] [place] [address] Gelacio Rock MD [address] [facility] [id number] [place] [address] 06/26/2025 8:00 AM CDT Office Visit [facility] [address] [place] [address] Isa Rod APRN LENS POLISHER HAND [address] [place] [address] documented as of this encounter Visit Diagnoses Not on filedocumented in this encounter Additional Health Concerns Assessment Noted Time PHQ-9 Depression Total Score: 7 06/22/20 24 2:20 PM CDT documented as of this encounter Care Teams Loom Control Chain Builder Relationship Specialty Start Date End Date Isa Rod APRN LENS POLISHER HAND [address] [place] [address] PCP - General Family Medicine 06/23/24 Alina Berkowitz PA-C [address] [address] Physician Housekeeping And Laundry Team Leader Urology 06/24/24 Isa Rod APRN LENS POLISHER HAND [address] [place] [address] Assigned PCP 07/26/24 Jorge Reid MD 9 [place] [address] Physician Physical Medicine and Rehabilitation 08/18/24 Lakeisha Aguilera MD [facility] [address] [place] [address] Assigned Surgical Provider 09/25/24 Jorge Reid MD 9 [place] [address] Assigned Neuroscience Provider 09/25/24 documented as of this encounter
--- OUTSIDE RECORDS SUMMARY | 2024-11-06 22:24 | XMS_ITS | Encounter Summary ---
Author Organization [place] [facility] [place] [address] Care Team Providers Care Under Ground Miner Name Role Phone Isa Rod APRN VACCINATOR Primary Care Provi ifeanyi Alina Berkowitz PA-C Unavailable Isa Rod APRN VACCINATOR Unavailable [phone] Jorge Reid MD Unavailable [phone] Lakeisha Aguilera MD Unavailable [phone] Jorge Reid MD Unavailable [phone] Encounter Details Date Type Department Care Team (Late st Contact Info) Description 11/03/2024 Telephone [facility] [address] , [address] [place] [address] [place] [address] [place] [address] Social History Tobacco Use Types [...] re latives? 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 Gender Identity Not on file Sexual Orientation Not on file documented as of this encounter Plan of Treatment Upcoming Encounters Date Type Department Care Team (Late st Contact Info) Description 01/16/2025 11:20 AM CDT Office Visit [facility] [place] [address] [place] [address] [address] [place] [address] Jorge Reid MD [address] [place] [address] 01/27/2025 8:45 AM CDT Office Visit [facility] Neurology [facility] [address] [place] [address], [address] [place] [address] Jorge Reid MD [address] [place] [address] Gelacio Rock MD [address] [place] [address] [id number] [place] [address] 06/26/2025 8:00 AM CDT Office Visit [address] [address] Isa Rod APRN VACCINATOR [address] [place] [address] documented as of this encounter Visit Diagnoses Not on filedocumented in this encounter Additional Health Concerns Assessment Noted Time PHQ-9 Depression Total Score: 7 06/22/20 24 2:20 PM CDT documented as of this encounter Care Teams Under Ground Miner Relationship Specialty Start Date End Date Isa Rod APRN VACCINATOR [id number] [place] [address] PCP - General Family Medicine 06/23/24 Alina Berkowitz PA-C [address] [place] [address] [address] Physician Side Sawyer Urology 06/24/24 Isa Rod APRN VACCINATOR [address] [place] [address] Assigned PCP 07/26/24 Jorge Reid MD [address] [place] [address] Physician Physical Medicine and Rehabilitation 08/18/24 Lakeisha Aguilera MD [facility] [address] [place] [address] Assigned Surgical Provider 09/25/24 Jroge Reid MD [address] [place] [address] Assigned Neuroscience Provider 09/25/24 documented as of this encounter
--- OUTSIDE RECORDS SUMMARY | 2024-11-06 22:24 | XMS_ITS | Encounter Summary ---
Author Organization [place] Address [facility] [place] [address] Care Team Providers Care Weekend Anchor Name Role Phone Isa Rod APRN MEMORY CARE PROGRAM DIRECTOR Primary Care Provi ifeanyi Alina Berkowitz PA-C Unavailable Isa Rod APRN MEMORY CARE PROGRAM DIRECTOR Unavailable + [phone] Jorge Reid MD Unavailable [phone] Lakeisha Aguilera MD Unavailable [phone] Jorge Reid MD Unavailable [phone] Encounter Details Date Type Department Care Team [...] re latives? Once a week 06/22/2024 Attends Buddhist Services Not on file 06/22 Active Member of Clubs or Organizations Not on f ile 06/22/2024 Attends Club or Organization Meetings Not on will e 06/22/2024 Marital Status Not on file 06/22/2024 PHQ-2 Answer Date Recorded PHQ-2 Score 0 09/08/2024 [facility] [place] of Occupat ional Health - Occupational Stress [...] in an abandoned building, in an overnight prison, or couch-surfing.) Yes 06/22/2024 Are you worried [...] on file Legal Sex Male 3:09 AM DIE SIZER Gender Identity Not on file Sexual Orientation Not on file documented as of this encounter Plan of Treatment Upcoming Encounters Date Type Department Care Team (Late st Contact Info) Description 01/16/2025 11:20 AM CDT Office Visit [address] [place] [address] Jorge Reid MD 9 [place] [address] 01/27/2025 8:45 AM CDT Office Visit [facility] Neurology [facility] [address] [place] [address], [address] [place] [address] Jorge Reid MD 9[address] [place] [address] Gelacio Rock MD [address] [place] [id number] [place] [address] 06/26/2025 8:00 AM CDT Office Visit [facility] [address] [place] [address] Isa Rod APRN MEMORY CARE PROGRAM DIRECTOR [address] [place] [address] documented as of this encounter Visit Diagnoses Not on filedocumented in this encounter Additional Health Concerns Assessment Noted Time PHQ-9 Depression Total Score: 7 06/22/20 24 2:20 PM CDT documented as of this encounter Care Teams Weekend Anchor Relationship Specialty Start Date End Date Isa Rod APRN MEMORY CARE PROGRAM DIRECTOR [id number] [place] [address] PCP - General Family Medicine 06/23/24 Alina Berkowitz PA-C [address] [address] Physician Fisheries Officer Urology 06/24/24 Isa Rod APRN MEMORY CARE PROGRAM DIRECTOR [address] [address] [address] Assigned PCP 07/26/24 Jorge Reid MD 909 [place] [address] Physician Physical Medicine and Rehabilitation 08/18/24 Lakeisha Aguilera MD [facility] [address] [place], [place] [address] Assigned Surgical Provider 09/25/24 Jorge Reid MD 909 [place] [address] Assigned Neuroscience Provider 09/25/24 documented as of this encounter
--- OUTSIDE RECORDS SUMMARY | 2024-11-06 22:24 | XMS_ITS | Clinical Summary ---
Author Organization [facility] Address [address] [place] [address] Care Team Providers Care Quenching Car Operator Name Role Phone RamsayLang healy Primary Care Provider [phone] Allergies Active Allergy Reactions Criticality Noted Date [...] day. 180 tablet 3 4 Active rizatriptan (MAXALT-TIRE LAYER) 10 mg oral disintegrating tablet Dissolve 1 [...] Department Care Team Description 08/21/2024 11:20 AM MACHINE BUFFER Virtual Visit [facility] [address] [place] [address] Dom Dumas MD Falls frequently (Primary Dx); Cervical spondylosis 08/12/2024 7:15 PM MACHINE BUFFER Ancillary Procedure [address] [place] [address] Hydrocephalus, unspecified type (HCC); Falls frequently 08/12/2024 6:30 PM MACHINE BUFFER Ancillary Procedure [address] [place] [address] Hydrocephalus, unspecified type (HCC); Falls frequently 08/12/2024 5:45 PM MACHINE BUFFER Ancillary Procedure [address] [place] [address] Hydrocephalus, unspecified type (HCC); Falls frequently 08/12/2024 5:00 PM MACHINE BUFFER Ancillary Procedure [address] [place] [address] Hydrocephalus, unspecified type (HCC); Falls frequently from [...] this topic Medical Devices Implanted Type Area Data Warehouse Specialist Device Identifier Shelf Expiration Date Model / Serial / Lot Ventricular Shunt No Valve-05/02/2001 Implanted:05/02/20 (Quantity not on file) Procedures Procedure Name Priority Date/Time Associated Diagnosis Comments MRI SPINE LUMBAR W/O CON Routine 08/12/2024 6:30 PM MACHINE BUFFER Hydrocephalus, unspecified type (HCC) Falls frequently MRI SPINE THORACIC W/O CON Routine 08/12/2024 5:57 PM MACHINE BUFFER Hydrocephalus, unspecified type (HCC) Falls frequently MRI SPINE CERVICAL W/O CON Routine 08/12/2024 5:42 PM MACHINE BUFFER Hydrocephalus, unspecified type (HCC) Falls frequently MRI BRAIN W/O CON Routine 08/12/2024 5:1 9 PM MACHINE BUFFER Hydrocephalus, unspecified type (HCC) Falls frequently from Last 3 Months Results * MRI SPINE LUMBAR W/O CON (08/12/2024 6:30 PM MACHINE BUFFER) Anatomical Region Laterality Modality Spine Magnetic Resonan ce 08/12/2024 7:10 PM MACHINE BUFFER Impressions 08/12/2024 7:18 PM MACHINE BUFFER 1. Stable lumbar spine MRI from 03/08/2015. [...] Dom Dolan M.D. Narrative 08/12/2024 7:18 PM MACHINE BUFFER EXAM: MRI SPINE LUMBAR W/O CON 08/12/2024. [...] SPINE THORACIC W/O CON (08/12/2024 5:57 PM MACHINE BUFFER) Anatomical Region Laterality Modality Spine Magnetic Resonan ce 08/12/2024 7:05 PM MACHINE BUFFER Impressions 08/12/2024 7:10 PM MACHINE BUFFER 1. Normal thoracic spinal cord. 2. At T4-5, increased but small central disc protrusion without spinal stenosis. 3. Stable remaining multilevel thoracic spondylosis as outlined. 4. Patent central canal and neural foramina throughout the thoracic spine. Signed by Dom Dolan M.D. Narrative 08/12/2024 7:10 PM MACHINE BUFFER EXAM: MRI SPINE THORACIC W/O CON 08/12/2024. [...] SPINE CERVICAL W/O CON (08/12/2024 5:42 PM MACHINE BUFFER) Anatomical Region Laterality Modality Spine Magnetic Resonan ce 08/12/2024 7:18 PM MACHINE BUFFER Impressions 08/12/2024 7:23 PM MACHINE BUFFER 1. At C5-6, increased broad-based disc osteophyte [...] Dom Dolan M.D. Narrative 08/12/2024 7:23 PM MACHINE BUFFER EXAM: MRI SPINE CERVICAL W/O CON 08/12/2024. [...] MRI BRAIN W/O CON (08/12/2024 5:19 PM MACHINE BUFFER) Anatomical Region Laterality Modality Head Magnetic Resonan ce 08/12/2024 7:36 PM MACHINE BUFFER Impressions 08/12/2024 7:41 PM MACHINE BUFFER 1. Stable nonenhanced brain MRI from 11/05/2019. 2. JOINT MAKER MACHINE shunt from a left parietal to occipital convexity, with stable ventricular catheter position. Coapted ventricular system without morphologic changes to suggest a shunt malfunction. Stable. 3. Minimal nonspecific supratentorial white matter T2 prolongation probably reflect gliosis from remote ICE CREAM CHEF insult, stable. 4. No new or acute intracranial abnormality. Signed by Dom Dolan M.D. Narrative 08/12/2024 7:41 PM MACHINE BUFFER EXAM: MRI BRAIN W/O CON 08/12/2024. COMPARISON: 11/05/2019 HISTORY: ICD-10: G91.9 Hydrocephalus, unspecified R29.6 Repeated falls TECHNIQUE: Sagittal FLAIR T1, axial FLAIR T2, axial fat-saturated FSE T2, axial GRE, axial DWI, coronal FLAIR T2, coronal FSE T2 high-resolution. FINDINGS: JOINT MAKER MACHINE shunt from a left inferior parietal/occipital approach, [...] FLAIR T2, coronal FSE T2 high-resolution. FINDINGS: JOINT MAKER MACHINE shunt from a left inferior parietal/occipital approach, [...] Stable nonenhanced brain MRI from 11/05/2019. 2. JOINT MAKER MACHINE shunt from a left parietal to occipital convexity, with stableventricular catheter position. Coapted ventricular system withoutmorphologic changes to suggest a shunt malfunction. Stable. 3. Minimal nonspecific supratentorial white matter T2 prolongationprobably reflect gliosis from remote ICE CREAM CHEF insult, stable. 4. No new or acute intracranial abnormality. Signed by Dom Dolan M.D. Dom Dumas MD MRI ORDERABLE Final Res ult from Last 3 [place] [address] Care Teams Quenching Car Operator Relationship Specialty Start Date End Date Lang Ramsay [address] [place] [address] PCP - General Family Medicine 03/20/23
--- OUTSIDE RECORDS SUMMARY | 2024-11-06 22:24 | XMS_ITS | Encounter Summary ---
Author Organization [place] Address [facility] [place] [address] Care Team Providers Care Corporate Law Assistant Name Role Phone Isa Rod APRN FOREST PATHOLOGY ASSOCIATE PROFESSOR Primary Care Provi ifeanyi Alina Berkowitz PA-C Unavailable [phone] Isa Rod APRN FOREST PATHOLOGY ASSOCIATE PROFESSOR Unavailable [phone] Jorge Reid MD Unavailable [phone] Lakeisha Aguilera MD Unavailable [phone] Jorge Reid MD Unavailable [phone] Reason for Visit * Reason Comments Consult Spina bifida of lumb osacral region with hydrocephalus * Consultation (Routine: Next available opening) - Pending Review Specialty Diagnoses / Procedures Referred By Contac t Referred To Contact Neurological Surgery Diagnoses Spina bifida of lumbosacral region with hydrocephalus (H) [place] [address] [address] [place] [address] Phone: tel: fax: Referral ID Status Reason Start Date Expiration Date Visits Requested Visits Authorized [id number] Pending Review Assess and Evaluate 4 08/13/2025 1 1 Encounter Details Date Type Department Care Team (Late st Contact Info) Description 10/15/2024 1:40 PM SCIENCES DEAN Office Visit [facility] Neurosurgery Clinic [place] [address] [place] [address] Drive [address] [place] [address] Nick Lo MD XXX RETIRED XXX [address] [place] [address] Jacoob Guido MD [address] [facility] 96 [place], [place] [phone] Pain of right sacroiliac joint (Primary Dx) [...] re latives? Once a week 06/22/2024 Attends Rastafari Services Not on file 06/22 Active Member of Clubs or Organizations Not on f ile 06/22/2024 Attends Club or Organization Meetings Not on will e 06/22/2024 Marital Status Not on file 06/22/2024 PHQ-2 Answer Date Recorded PHQ-2 Score 0 09/08/2024 [facility] of Occupat ional Health - Occupational Stress [...] in an abandoned building, in an overnight fpc, or couch-surfing.) Yes 06/22/2024 Are you worried [...] on file Legal Sex Male 3:09 AM SCIENCES DEAN Gender Identity Not on file Sexual Orientation Not on file documented as of this encounter Last Filed Vital Signs Vital Sign Reading Time Taken Comments Blood Pressure 146/94 10/15/2024 1:38 PM SCIENCES DEAN Pulse 76 10/15/2024 1:38 PM SCIENCES DEAN Temperature - - Respiratory Rate - - Oxygen Saturation 97% 10/15/2024 1:38 PM SCIENCES DEAN Inhaled Oxygen Concentration - - Weight - - Height 160 cm (5' 3) 10/15/2024 1:38 PM SCIENCES DEAN Body Mass Index - - documented in [...] pain yet. He has been taking some jkvg-zwz-okvlybl medications but not consistently. Has not noticed any of these help. He does note a few episodes where he gets his legs will give out and is associatedwith numbness for a minute or 2 and then with osyj-uum-yzyqntl as the symptoms resolved. He does not [...] physical therapy and then recommended starting with gmfj-[id number]-[id number] NSAIDs such as ibuprofen to try and treat the lower extremity pain. I will contact Dr. Gilliland to see if there is any other treatments that could be targeted towards the right SI joint as well. Jacobo Guido MD NCES DEAN documented in this encounter Nursing Notes * [...] size: large Severe Pain (7) Rosalva Dinh NCES DEAN documented in this encounter Plan of Treatment Upcoming Encounters Date Type Department Care Team (Late st Contact Info) Description 01/16/2025 11:20 AM CDT Office Visit [facility] [place] [address] [place] [address] [address] [place] [address] Jorge Reid MD [address] [place] [address] 01/27/2025 8:45 AM CDT Office Visit [facility] [address] [facility], [address] [place] [address] Jorge Reid MD [address] [place] [address] Gelacio Rock MD [address] [place] [address] [id number] [place] [address] 06/26/2025 8:00 AM CDT Office Visit [facility] [address] [place] [phone] Isa Rod APRN FOREST PATHOLOGY ASSOCIATE PROFESSOR [address] [place] [address] documented as of this encounter Visit Diagnoses Diagnosis Pain of right sacroiliac joint- Primary Disorders of sacrum documented in this encounter Additional Health Concerns Assessment Noted Time PHQ-9 Depression Total Score: 7 06/22/20 24 2:20 PM CDT documented as of this encounter Care Teams Corporate Law Assistant Relationship Specialty Start Date End Date Isa Rod APRN FOREST PATHOLOGY ASSOCIATE PROFESSOR [address] [place] [address] PCP - General Family Medicine 06/23/24 Alina Berkowitz PA-C [address] [address] Physician Corporate Wellness Coordinator Urology 06/24/24 Isa Rod APRN FOREST PATHOLOGY ASSOCIATE PROFESSOR [address] [place] [address] Assigned PCP 07/26/24 Jorge Reid MD [address] [place] [address] Physician Physical Medicine and Rehabilitation 08/18/24 Lakeisha Aguilera MD [facility] [address] [place] [address] Assigned Surgical Provider 09/25/24 Jorge Reid MD [address] [place] [address] Assigned Neuroscience Provider 09/25/24 documented as of this encounter
--- OUTSIDE RECORDS SUMMARY | 2024-11-06 22:24 | XMS_ITS | Encounter Summary ---
Author Organization [place] Address [facility] [place] [address] Care Team Providers Care Package Checker Name Role Phone Isa Rod APRN, CNP Primary Care Provi ifeanyi Alina Berkowitz PA-C Unavailable [phone] Isa Rod APRN, CNP Unavailable [phone] Jorge Reid MD Unavailable [phone] Lakeisha Aguilera MD Unavailable Jorge Reid MD Unavailable [phone] Reason for Visit * Reason Comments Medication Refill Encounter Details Date Type Department Care Team (Late st Contact Info) Description 10/17/[address] [facility] [address] [place] [address] Isa Rod APRN STITCHER OPERATOR [address] [place] [address] Medication Refill Social History Tobacco [...] re latives? Once a week 06/22/2024 Attends Zoroastrian Services Not on file 06/22 Active Member of Clubs or Organizations Not on f ile 06/22/2024 Attends Club or Organization Meetings Not on will e 06/22/2024 Marital Status Not on file 06/22/2024 PHQ-2 Answer Date Recorded PHQ-2 Score 0 09/08/2024 [facility] of Occupat ional Health - [...] on file Legal Sex Male 3:09 AM STOCK TRACER Gender Identity Not on file Sexual Orientation Not on file documented as of this encounter Plan of Treatment Upcoming Encounters Date Type Department Care Team (Late st Contact Info) Description 01/16/2025 11:20 AM CDT Office Visit [facility] Pain [facility] [address] [place] [address] [address] [place] [address] Jorge Reid MD [address] [place] [address] 01/27/2025 8:45 AM CDT Office Visit [facility] Neurology [facility] [address] [place] [address], [address] [place] [phone] Jorge Reid MD [address] [place] [address] Gelacio Rock MD [address] [place] [address] [id number] [place] [address] 06/26/2025 8:00 AM CDT Office Visit [facility] [address] [place] [address] Isa Rod APRN STITCHER OPERATOR [address] [place] [address] documented as of this encounter Visit Diagnoses Diagnosis Benign essential HTN Essential hypertension, benign documented in this encounter Additional Health Concerns Assessment Noted Time PHQ-9 Depression Total Score: 7 06/22/20 24 2:20 PM CDT documented as of this encounter Care Teams Package Checker Relationship Specialty Start Date End Date Isa Rod APRN STITCHER OPERATOR [address] [place] [address] PCP - General Family Medicine 06/23/24 Alina Berkowitz PA-C [address] [address] Physician Supervisor Hardboard Urology 06/24/24 Isa Rod APRN STITCHER OPERATOR [address] [place] [address] Assigned PCP 07/26/24 Jorge Reid MD [address] [place] [address] Physician Physical Medicine and Rehabilitation 08/18/24 Lakeisha Aguilera MD [facility] 6[address] [place] [address] Assigned Surgical Provider 09/25/24 Jorge Reid MD [address] [place] [address] Assigned Neuroscience Provider 09/25/24 documented as of this encounter
--- OUTSIDE RECORDS SUMMARY | 2024-11-06 22:24 | XMS_ITS | Encounter Summary ---
Author Organization [place] Address [facility] [place] [address] Care Team Providers Care Customer Sales Distributor Name Role Phone Ias Rod APRN FRANCHISE SPECIALIST Primary Care Provi ifeanyi Alina Berkowitz PA-C Unavailable Isa Rod APRN FRANCHISE SPECIALIST Unavailable + [phone] Jorge Reid MD Unavailable [phone] Lakeisha Aguilera MD Unavailable [phone] Jorge Reid MD Unavailable [phone] Encounter Details Date Type Department Care Team [...] re latives? Once a week 06/22/2024 Attends Mormon Services Not on file 06/22 Active Member of Clubs or Organizations Not on f ile 06/22/2024 Attends Club or Organization Meetings Not on will e 06/22/2024 Marital Status Not on file 06/22/2024 PHQ-2 Answer Date Recorded PHQ-2 Score 0 09/08/2024 [facility] [place] of Occupat ional Health - Occupational Stress [...] in an abandoned building, in an overnight longterm, or couch-surfing.) Yes 06/22/2024 Are you worried [...] on file Legal Sex Male 3:09 AM DRAW FURNACE TENDER Gender Identity Not on file Sexual Orientation Not on file documented as of this encounter Plan of Treatment Upcoming Encounters Date Type Department Care Team (Late st Contact Info) Description 01/16/2025 11:20 AM CDT Office Visit [address] [place] [address] Jorge Reid MD 9 [place] [address] 01/27/2025 8:45 AM CDT Office Visit [facility] Neurology [facility] [address] [place] [address], [address] [place] [address] Jorge Reid MD 909 [place] [address] Gelacio Rock MD [address] [place], [place] [address] [address] 06/26/2025 8:00 AM CDT Office Visit [facility] [address] [place] [address] Isa Rod APRN FRANCHISE SPECIALIST [address] [place] [address] documented as of this encounter Visit Diagnoses Not on filedocumented in this encounter Additional Health Concerns Assessment Noted Time PHQ-9 Depression Total Score: 7 06/22/20 24 2:20 PM CDT documented as of this encounter Care Teams Customer Sales Distributor Relationship Specialty Start Date End Date Isa Rod APRN FRANCHISE SPECIALIST [id number] [place] [address] PCP - General Family Medicine 06/23/24 Alina Berkowitz PA-C [address] [address] Physician Engraver Flatware Urology 06/24/24 Isa Rod APRN FRANCHISE SPECIALIST [address] [place] [address] Assigned PCP 07/26/24 Jorge Reid MD 909 [place] [address] Physician Physical Medicine and Rehabilitation 08/18/24 Lakeisha Aguilera MD [facility] 6[address] [place], [place] [address] Assigned Surgical Provider 09/25/24 Jorge Reid MD 909 [place] [address] Assigned Neuroscience Provider 09/25/24 documented as of this encounter
--- OUTSIDE RECORDS SUMMARY | 2024-11-06 22:24 | XMS_ITS | Encounter Summary ---
Author Organization [place] Address [facility] [place] [address] Care Team Providers Care Metal Sorter Name Role Phone Isa Rod APRN WORKERS COMPENSATION EXAMINER Primary Care Provi ifeanyi Alina Berkowitz PA-C Unavailable [phone] Isa Rod APRN WORKERS COMPENSATION EXAMINER Unavailable [phone] Jorge Reid MD Unavailable [phone] Lakeisha Aguilera MD Unavailable [phone] Jorge Reid MD Unavailable [phone] Encounter Details Date Type Department Care Team [...] re latives? Once a week 06/22/2024 Attends Buddhism Services Not on file 06/22 Active Member of Clubs or Organizations Not on f ile 06/22/2024 Attends Club or Organization Meetings Not on will e 06/22/2024 Marital Status Not on file 06/22/2024 PHQ-2 Answer Date Recorded PHQ-2 Score 0 09/08/2024 [facility] of Occupat ional Health - Occupational Stress [...] in an abandoned building, in an overnight snf, or couch-surfing.) Yes 06/22/2024 Are you worried [...] on file Legal Sex Male 3:09 AM WEATHER STRIPPER Gender Identity Not on file Sexual Orientation Not on file documented as of this encounter Plan of Treatment Upcoming Encounters Date Type Department Care Team (Late st Contact Info) Description 01/16/2025 11:20 AM CDT Office Visit [address] [place] [address] Jorge Reid MD 9 [place] [address] 01/27/2025 8:45 AM CDT Office Visit [facility] Neurology [facility] [address] [place] [address], [address] [place] [phone] Jorge Reid MD [address] [place] [address] Gelacio Rock MD [address] [place], [place] [address] [address] 06/26/2025 8:00 AM CDT Office Visit [facility] [address] [place] [address] Isa Rod APRN WORKERS COMPENSATION EXAMINER [address] [place] [address] documented as of this encounter Visit Diagnoses Not on filedocumented in this encounter Additional Health Concerns Assessment Noted Time PHQ-9 Depression Total Score: 7 06/22/20 24 2:20 PM CDT documented as of this encounter Care Teams Metal Sorter Relationship Specialty Start Date End Date Isa Rod APRN WORKERS COMPENSATION EXAMINER [id number] [place] [address] PCP - General Family Medicine 06/23/24 Alina Berkowitz PA-C [address] [address] Physician Corporate Strategy Associate Urology 06/24/24 Isa Rod APRN WORKERS COMPENSATION EXAMINER [address] [place] [address] Assigned PCP 07/26/24 Jorge Reid MD 909 [place] [address] Physician Physical Medicine and Rehabilitation 08/18/24 Lakeisha Aguilera MD [facility] 6[address] [place], [place] [address] Assigned Surgical Provider 09/25/24 Jorge Reid MD 909 [place] [address] Assigned Neuroscience Provider 09/25/24 documented as of this encounter
--- OUTSIDE RECORDS SUMMARY | 2024-11-06 22:24 | XMS_ITS | Encounter Summary ---
Author Organization [place] Address [facility]0 [facility] [place] [address] Care Team Providers Care Router Operator Radial Name Role Phone Isa Rod APRN MARKETING DATABASE COORDINATOR Primary Care Provi ifeanyi Alina Berkowitz PA-C Unavailable Isa Rod APRN MARKETING DATABASE COORDINATOR Unavailable + [phone] Jorge Reid MD Unavailable [phone] Lakeisha Aguilera MD Unavailable [phone] Jorge Reid MD Unavailable [phone] Encounter Details Date Type Department Care Team [...] Answer Date Recorded PHQ-2 Score 0 09/08/2024 [facility] of Occupat ional Health - Occupational Stress [...] in an abandoned building, in an overnight retirement, or couch-surfing.) Yes 06/22/2024 Are you worried [...] on file Legal Sex Male 3:09 AM CASTING TECHNICIAN Gender Identity Not on file Sexual Orientation Not on file documented as of this encounter Plan of Treatment Upcoming Encounters Date Type Department Care Team (Late st Contact Info) Description 01/16/2025 11:20 AM CDT Office Visit [address] [place] [address] Jorge Reid MD 9 [place] [address] 01/27/2025 8:45 AM CDT Office Visit [facility] Neurology [facility] [address] [place] [address], [address] [place] [phone] Jorge Reid MD 9[address] [place] [address] Gelacio Rock MD [address] [place], [place] [address] [address] 06/26/2025 8:00 AM CDT Office Visit [facility] [address] [place] [address] Isa Rod APRN MARKETING DATABASE COORDINATOR [address] [place] [address] documented as of this encounter Visit Diagnoses Not on filedocumented in this encounter Additional Health Concerns Assessment Noted Time PHQ-9 Depression Total Score: 7 06/22/20 24 2:20 PM CDT documented as of this encounter Care Teams Router Operator Radial Relationship Specialty Start Date End Date Isa Rod APRN MARKETING DATABASE COORDINATOR [id number] [place] [address] PCP - General Family Medicine 06/23/24 Alina Berkowitz PA-C [address] [address] Physician Associate Chemist Urology 06/24/24 Isa Rod APRN MARKETING DATABASE COORDINATOR [address] [place] [address] Assigned PCP 07/26/24 Jorge Reid MD 9[address] [place] [address] Physician Physical Medicine and Rehabilitation 08/18/24 Lakeisha Aguilera MD [facility] 6[address] [place], [place] [address] Assigned Surgical Provider 09/25/24 Jorge Reid MD 909 [place] [address] Assigned Neuroscience Provider 09/25/24 documented as of this encounter
--- OUTSIDE RECORDS SUMMARY | 2024-11-06 22:24 | XMS_ITS | Encounter Summary ---
[facility] Address [address], [place] [address] Care Team Providers Care Philosophy Lecturer Name Role Phone Found, No Pcp MD Primary Care Provider Unavailab le Encounter Details Date Type Department Care Team (Late st Contact Info) Description 10/22/2024 Orders Only [facility] [address] [place] [address] Mirtha Schmitz, RELEASE ENGINEER, SUPERINTENDENT TESTS [address] [place] [address] Neuromuscular dysfunction of bladder, unspecified Social History [...] BASIC METABOLIC PANEL Routine 10/22/2024 9:07 AM SKIVER MACHINE Neuromuscular dysfunction of bladder, unspecified VITAMIN B12 ONLY Routine 10/22/2024 9:07 AM SKIVER MACHINE Neuromuscular dysfunction of bladder, unspecified documented in this encounter Results * Basic Metabolic Panel (10/22/2024 9:07 AM SKIVER MACHINE) Sodium 136 136 - 145 mmol/L 10/22/2024 11:[address] [facility] Potassium 3.9 3.5 - 5.1 mmol/L 10/22/2024 11:[address] [facility] Chloride 109 98 - 109 mmol/L 10/22/2024 11:[address] [facility] CO2 23 20 - 29 mmol/L 10/22/2024 11:[address] [facility] Anion Gap 4 6 - 16 mmol/L 10/22/2024 11:[address] [facility] Calcium 9.2 8.4 - 10.4 mg/dL 10/22/2024 11:[address] [facility] BUN 14 7 - 26 mg/dL 10/22/2024 11:[address] [facility] Creatinine 0.76 0.73 - 1.18 mg/dL 10/22/2024 11:[address] [facility] Glucose 92 70 - 100 mg/dL 10/22/2024 11:[address] [facility] Comment:The given reference range is for the fasting state. Non-fasting reference range for glucose is 70 - 180 mg/dL. GFR, Estimated >60 >60 mL/min/1. 73m2 10/22/2024 11:[address] [facility] Hours Fasting 13.0 8 - 12 Hours 10/22/2024 11:38 AM [facility] 435 LABORATORY Blood Venipuncture / Unknown 10/22/2024 9:07 AM SKIVER MACHINE 10/22/2024 9:07 AM SKIVER MACHINE us Mirtha Schmitz APRN, SUPERINTENDENT TESTS LAB_1 Fin al Result Performing Organization Address City/[facility]/ZIP Co de Phone Number [id number] [place] [address] [address] [place] [address], [facility] * Vitamin B12 Only (10/22/2024 9:07 AM SKIVER MACHINE) Vitamin B12 697 213 - 816 pg/mL 10/23/2024 12:32 PM SKIVER MACHINE [facility] Blood Venipuncture / Unknown 10/22/2024 9:07 AM SKIVER MACHINE 10/22/2024 9:07 AM SKIVER MACHINE Mirtha Schmitz APRN, SUPERINTENDENT TESTS LAB_1 Fin al Result [facility] [address] [place], [place] [id number], [facility] documented in this encounter Visit Diagnoses Diagnosis Neuromuscular dysfunction of bladder, unspecified documented in this encounter Care Teams Philosophy Lecturer Relationship Specialty Start Date End Date Found, No Pcp, [address] [place] [address] PCP - General 02/23/21 documented as of this encounter
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
--- OUTSIDE RECORDS SUMMARY | 2024-11-06 22:24 | XMS_ITS | Encounter Summary ---
Author Organization [place] Address [facility] [place] [address] Care Team Providers Care Blow Mold Operator Name Role Phone Isa Rod APRN CERTIFIED ALCOHOL DRUG COUNSELOR Primary Care Provi ifeanyi Alina Berkowitz PA-C Unavailable Isa Rod APRN CERTIFIED ALCOHOL DRUG COUNSELOR Unavailable + [phone] Jorge Reid MD Unavailable [phone] Lakeisha Aguilera MD Unavailable [phone] Jorge Reid MD Unavailable [phone] Encounter Details Date Type Department Care Team [...] Answer Date Recorded PHQ-2 Score 0 09/08/2024 [facility] [place] of Occupat ional Health - Occupational Stress [...] on file Legal Sex Male 3:09 AM TRAINING AND DEVELOPMENT COORDINATOR Gender Identity Not on file Sexual Orientation Not on file documented as of this encounter Plan of Treatment Upcoming Encounters Date Type Department Care Team (Late st Contact Info) Description 01/16/2025 11:20 AM CDT Office Visit [address] [place] [address] Jorge Reid MD 9 [place] [address] 01/27/2025 8:45 AM CDT Office Visit [facility] [address] [place] [address], [address] [place] [address] Jorge Reid MD [address] [place] [address] Gelacio Rock MD [address] [place] [address] [address] 06/26/2025 8:00 AM CDT Office Visit [facility] [address] [place] [address] Isa Rod APRN CERTIFIED ALCOHOL DRUG COUNSELOR [address] [place] [address] documented as of this encounter Visit Diagnoses Not on filedocumented in this encounter Additional Health Concerns Assessment Noted Time PHQ-9 Depression Total Score: 7 06/22/20 24 2:20 PM CDT documented as of this encounter Care Teams Blow Mold Operator Relationship Specialty Start Date End Date Isa Rod APRN CERTIFIED ALCOHOL DRUG COUNSELOR [id number] [place] [address] PCP - General Family Medicine 06/23/24 Alina Berkowitz PA-C [address] [address] Physician Co Supervisor Grounds And Landscape Urology 06/24/24 Isa Rod APRN CERTIFIED ALCOHOL DRUG COUNSELOR [address] [place] [address] Assigned PCP 07/26/24 Jorge Reid MD 9[address] [place] [address] Physician Physical Medicine and Rehabilitation 08/18/24 Lakeisha Aguilera MD [facility] [address] [place], [place] [address] Assigned Surgical Provider 09/25/24 Jorge Reid MD [address] [place] [address] Assigned Neuroscience Provider 09/25/24 documented as of this encounter
--- OUTSIDE RECORDS SUMMARY | 2024-11-06 22:24 | XMS_ITS | Clinical Summary ---
Author Organization [facility] Address [address] [place] [address] Care Team Providers Care Teacher Adult Education Name Role Phone Found, No Pcp MD [...] for each transition of care or referral. [facility] Allergies Active Allergy Reactions Criticality Noted Date [...] Department Care Team Description 10/22/2024 Orders Only [facility] [address] [place] [address] Mirtha Schmitz, SENIOUR INSIGHT MANAGER, OPTICAL MANAGER Neuromuscular dysfunction of bladder, unspecified from Last [...] BASIC METABOLIC PANEL Routine 10/22/2024 9:07 AM PHARMACY ANCILLARY Neuromuscular dysfunction of bladder, unspecified VITAMIN B12 ONLY Routine 10/22/2024 9:07 AM PHARMACY ANCILLARY Neuromuscular dysfunction of bladder, unspecified CHOLESTEROL, TOTAL AND HDL Routine 06/18/2003 3:10 PM CDT from Last 3 Months or Most Recently Relevant to Health Maintenance Results * Basic Metabolic Panel (10/22/2024 9:07 AM [facility]) Sodium 136 136 - 145 mmol/L 10/22/2024 11:38 AM [facility] Potassium 3.9 3.5 - 5.1 mmol/L 10/22/2024 11:38 AM [facility] Chloride 109 98 - 109 mmol/L 10/22/2024 11:38 AM [facility] CO2 23 20 - 29 mmol/L 10/22/2024 11:38 AM [facility] Anion Gap 4 6 - 16 mmol/L 10/22/2024 11:38 AM [facility] Calcium 9.2 8.4 - 10.4 mg/dL 10/22/2024 11:38 AM [facility] BUN 14 7 - 26 mg/dL 10/22/2024 11:38 AM [facility] Creatinine 0.76 0.73 - 1.18 mg/dL 10/22/2024 11:38 AM [facility] Glucose 92 70 - 100 mg/dL 10/22/2024 11:38 AM [facility] Comment:The given reference range is for the fasting state. Non-fasting reference range for glucose is 70 - 180 mg/dL. GFR, Estimated >60 >60 mL/min/1. 73m2 10/22/2024 11:38 AM [facility] Hours Fasting 13.0 8 - 12 Hours 10/22/2024 11:38 AM [facility] 435 LABORATORY Blood Venipuncture / Unknown 10/22/2024 9:07 AM PHARMACY ANCILLARY 10/22/2024 9:07 AM [facility] us Mirtha Schmitz APRN, OPTICAL MANAGER LAB_1 Fin al Result [address] [address], [facility] [address]AT[address] [place] [address], [facility] * Vitamin B12 Only (10/22/2024 9:07 AM PHARMACY ANCILLARY) Vitamin B12 697 213 - 816 pg/mL 10/23/2024 12:32 PM PHARMACY ANCILLARY [facility] Blood Venipuncture / Unknown 10/22/2024 9:07 AM PHARMACY ANCILLARY 10/22/2024 9:07 AM PHARMACY ANCILLARY Mirtha Schmitz APRN, OPTICAL MANAGER LAB_1 Fin al Result [facility] CENTRAL LAB [address] * Cholesterol, Total and HDL (06/18/2003 3:10 PM CDT) Cholesterol/HDL Ratio Screen 4.8 No normal range HP CONVERSION HDL Cholesterol 49 40 - 60 mg/dL HP CONVERSION 06/18/2003 3:10 PM CDT Fred Williamson MD LAB_1 Final Result Performing Organization Address City/[facility] Co de Phone Number [facility] CONVERSION from Last 3 Months or Most Recently Relevant to Health Maintenance Insurance [facility] Care Teams Teacher Adult Education Relationship Specialty Start Date End Date Found, No Pcp, [address] [place] [address] PCP - General 02/23/21
--- OUTSIDE RECORDS SUMMARY | 2024-11-06 22:24 | XMS_ITS | Encounter Summary ---
Author Organization [place] Address [facility] [place] [address] Care Team Providers Care Cras Name Role Phone Isa Rod APRN PROFILER Primary Care Provi ifeanyi Alina Berkowitz PA-C Unavailable Isa Rod APRN PROFILER Unavailable [phone] Jorge Reid MD Unavailable [phone] Lakeisha Aguilera MD Unavailable [phone] Jorge Reid MD Unavailable [phone] Encounter Details Date Type Department Care Team (Late st Contact Info) Description 10/16/2024 Telephone [facility] [address], [address] [place] [address] Jorge Reid MD [address] [place] [address] Social History Tobacco Use Types Packs/Day [...] re latives? 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 MOTIVE GENERAL MANAGER documented in this encounter Plan of Treatment Upcoming Encounters Date Type Department Care Team (Late st Contact Info) Description 01/16/2025 11:20 AM CDT Office Visit [facility] Pain [address] [place] [address] Jorge Reid MD [address] [place] [address] 01/27/2025 8:45 AM CDT Office Visit [facility] Neurology [facility] - [address], [address] [place] [phone] Jorge Reid MD [address] [place] [address] Gelacio Rock MD [address] [place] [address] [id number] [place] [address] 06/26/2025 8:00 AM CDT Office Visit [address] [phone] Isa Rod APRN [facility] [address] [place] [address] documented as of this encounter Visit Diagnoses Not on filedocumented in this encounter Additional Health Concerns Assessment Noted Time PHQ-9 Depression Total Score: 7 06/22/20 24 2:20 PM CDT documented as of this encounter Care Teams Cras Relationship Specialty Start Date End Date Isa Rod APRN PROFILER [address] [place] [address] PCP - General Family Medicine 06/23/24 Alina Berkowitz PA-C [address] [address] Physician Science Liaison Urology 06/24/24 Isa Rod APRN PROFILER [address] [place] [address] Assigned PCP 07/26/24 Jorge Reid MD [address] [place] [address] Physician Physical Medicine and Rehabilitation 08/18/24 Lakeisha Aguilera MD [facility] [address] [place] [address] Assigned Surgical Provider 09/25/24 Jorge Reid MD [address] [place] [address] Assigned Neuroscience Provider 09/25/24 documented as of this encounter
--- OUTSIDE RECORDS SUMMARY | 2024-11-06 22:24 | XMS_ITS | Encounter Summary ---
Author Organization [place] Address [facility] [place] [address] Care Team Providers Care Electrical Engineer Mep Name Role Phone Isa Rod APRN STAFF EDITOR Primary Care Provi ifeanyi Alina Berkowitz PA-C Unavailable [phone] Isa Rod APRN STAFF EDITOR Unavailable [phone] Jorge Reid MD Unavailable [phone] Lakeisha Aguilera MD Unavailable [phone] Jorge Reid MD Unavailable [phone] Reason for Referral * (Routine) - Pending Review Specialty Diagnoses / Procedures Referred By Contshira t Referred To Contact Diagnoses Cervical stenosis of spinal canal Procedures EMG Jorge Reid MD [address] [place] [address] Phone: tel: fax: Referral ID Status Reason Start Date Expiration Date V isits Requested Visits Authorized [id number] Pending Review 10/17/2024 10/17/2025 1 1 TUB WORKER Encounter Details Date Type Department Care Team (Latest Contact Info) Description 10/17/2024 8:00 AM WASHTUB WORKER Office Visit [facility] [address] [place] [address] Jorge Reid MD [address] [place] [id number] Spina bifida of lumbosacral region with hydrocephalus [...] re latives? Once a week 06/22/2024 Attends Mandaen Services Not on file 06/22 Active Member of Clubs or Organizations Not on f ile 06/22/2024 Attends Club or Organization Meetings Not on will e 06/22/2024 Marital Status Not on file 06/22/2024 PHQ-2 Answer Date Recorded PHQ-2 Score 0 09/08/2024 [facility] Occupat ional Health - Occupational Stress [...] in an abandoned building, in an overnight mcfp, or couch-surfing.) Yes 06/22/2024 Are you worried [...] on file Legal Sex Male 3:09 AM WASHTUB WORKER Gender Identity Not on file Sexual Orientation Not on file documented as of this encounter Patient Instructions * Patient Instructions* Jorge Reid MD - 10/17/2024 8:00 AM WASHTUB WORKER Make every effort to attend physical therapy [...] roots. In the meantime, look into your [place] resources for wheelchair repair and if you [...] drops in blood pressure, sensation, or strength. TUB WORKER documented in this encounter Progress Notes * Jorge Reid MD - 10/17/2024 8:00 AM CST PM&R Clinic Note Patient Name: Chaim West : 1985 Medical Record: [id number] Interval History: Summary of the previous visit: [...] augment revision. Will do annual screening at [facility]. Saw neurosurgery: low back pain consistent with [...] These aren't currently exacerbated. He has a [employer] ultralight manual wheelchair, self pay. 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 # SI [...] documentation, and further activities as noted above. TUB WORKER documented in this encounter Plan of Treatment Upcoming Encounters Date Type Department Care Team (Late st Contact Info) Description 01/16/2025 11:20 AM CDT Office Visit [facility] [address] [place] [address] [address] [place] [phone] Jorge Reid MD [address] [place] [address] 01/27/2025 8:45 AM CDT Office Visit [facility] - [place] [address] [place] [address], [address] [place] [phone] Jorge Reid MD [address] [place] [id number] Gelacio Rock MD [address] [place] [address] [id number] [place], [place] [id number] 06/26/2025 8:00 AM CDT Office Visit [facility] [phone] [place] [address] Isa Rod APRN STAFF EDITOR [address] [place] [address] Scheduled Orders Name Type Priority Associated Diagnoses [...] documented as of this encounter Care Teams Electrical Engineer Mep Relationship Specialty Start Date End Date Isa Rod APRN STAFF EDITOR [address] [place] [address] PCP - General Family Medicine 06/23/24 Alina Berkowitz PA-C [address] [address] Physician Fast Food Supervisor Urology 06/24/24 Isa oRd APRN STAFF EDITOR [address] [place] [address] Assigned PCP 07/26/24 Jorge Reid MD [address] [place] [address] [id number] Physician Physical Medicine and Rehabilitation 08/18/24 Lakeisha Aguilera MD [facility] [address] [place] [address] Assigned Surgical Provider 09/25/24 Jorge Reid MD [address] [place] [address] [id number] Assigned Neuroscience Provider 09/25/24 documented as of this encounter
--- OUTSIDE RECORDS SUMMARY | 2024-11-06 22:24 | XMS_ITS | Encounter Summary ---
Author Organization [place] Address [facility] [place] [address] Care Team Providers Care Security Escort Name Role Phone Isa Rod APRN OPHTHALMIC MEDICAL TECHNICIAN Primary Care Provi ifeanyi Alina Berkowitz PA-C Unavailable Isa Rod APRN OPHTHALMIC MEDICAL TECHNICIAN Unavailable [phone] Jorge Reid MD Unavailable [phone] Lakeisha Aguilera MD Unavailable [phone] Jorge Reid MD Unavailable [phone] Reason for Visit * Reason Comments Medication Refill Encounter Details Date Type Department Care Team (Late st Contact Info) Description 10/22/2024 [facility] [address] [address] Jorge Reid MD [address] [place] [address] Medication Refill Social History Tobacco Use [...] re latives? Once a week 06/22/2024 Attends Islam Services Not on file 06/22 Active Member of Clubs or Organizations Not on f ile 06/22/2024 Attends Club or Organization Meetings Not on will e 06/22/2024 Marital Status Not on file 06/22/2024 PHQ-2 Answer Date Recorded PHQ-2 Score 0 09/08/2024 [facility]ational Stress Questionnaire [...] in an abandoned building, in an overnight correction, or couch-surfing.) Yes 06/22/2024 Are you worried [...] on file Legal Sex Male 3:09 AM PLEXIGLAS FORMER Gender Identity Not on file Sexual Orientation Not on file documented as of this encounter Plan of Treatment Upcoming Encounters Date Type Department Care Team (Late st Contact Info) Description 01/16/2025 11:20 AM CDT Office Visit [facility] [address] [place] [address] [address] [place] [address] Jorge Reid MD [address] [place] [address] 01/27/2025 8:45 AM CDT Office Visit [facility] Neu[facility] [address] [place] [address], [address] [place] [phone] Jorge Reid MD [address] [place] [address] [phone] Gelacio Rock MD [address] [place] [address] [id number] [place] [address] 06/26/2025 8:00 AM CDT Office Visit [address] [address] Isa Rod APRN OPHTHALMIC MEDICAL TECHNICIAN [address] [place] [address] documented as of this encounter Visit Diagnoses Diagnosis Spina bifida of lumbosacral region with hydrocephalus (H) Vitamin D deficiency Unspecified vitamin D deficiency documented in this encounter Additional Health Concerns Assessment Noted Time PHQ-9 Depression Total Score: 7 06/22/20 24 2:20 PM CDT documented as of this encounter Care Teams Security Escort Relationship Specialty Start Date End Date Isa Rod APRN OPHTHALMIC MEDICAL TECHNICIAN [address] [place] [address] PCP - General Family Medicine 06/23/24 Alina Berkowitz PA-C [address] [address] Physician Content Editor Urology 06/24/24 Isa Rod APRN OPHTHALMIC MEDICAL TECHNICIAN [address] [place] [address] Assigned PCP 07/26/24 Jorge Reid MD [address] [place] [address] Physician Physical Medicine and Rehabilitation 08/18/24 Lakeisha Aguilera MD [facility] [address] [place] [address] Assigned Surgical Provider 09/25/24 Jorge Reid MD [address] [place] [address] Assigned Neuroscience Provider 09/25/24 documented as of this encounter
--- OUTSIDE RECORDS SUMMARY | 2024-11-06 22:24 | XMS_ITS | Encounter Summary ---
Author Organization [place] Address [facility] [place] [address] Care Team Providers Care Airport Engineer Name Role Phone Isa Rod APRN HEAD MEN'S GOLF COACH Primary Care Provi ifeanyi Alina Berkowitz PA-C Unavailable [phone] Isa Rod APRN, CNP Unavailable [phone] Jorge Reid MD Unavailable [phone] Lakeisha Aguilera MD Unavailable [phone] Jorge Reid MD Unavailable [phone] Encounter Details Date Type Department Care Team (Late st Contact Info) Description 10/17/2024 9:30 AM [facility] [address] [place] [address] Spina bifida of lumbosacral region with [...] Answer Date Recorded PHQ-2 Score 0 09/08/2024 [facility] - Occupational Stress Questionnaire Answer [...] on file Legal Sex Male 3:09 AM SPORTSPERSONS Gender Identity Not on file Sexual Orientation Not on file documented as of this encounter Plan of Treatment Upcoming Encounters Date Type Department Care Team (Late st Contact Info) Description 01/16/2025 11:20 AM CDT Office Visit [facility] [place] [address] [place] [address] [address] [place] [address] Jorge Reid MD [address] [place] [phone] 01/27/2025 8:45 AM CDT Office Visit [facility] Neurology [facility] [address] [facility], [address] [place] [address] Jorge Reid MD [address] [place] [address] [phone] Gelacio Rock MD [address] [place] [address] [id number] [place], [place] 182535 06/26/2025 8:00 AM CDT Office Visit [address] [phone] Isa Rod APRN [facility] [address] [place], [place] [phone] documented as of this encounter Procedures Procedure Name Priority Date/Time Associated Diagnosis Comments VITAMIN D DEFICIENCY SCREENING Routine 10/17/2024 9:21 AM SPORTSPERSONS Spina bifida of lumbosacral region with hydrocephalus (H) Vitamin D deficiency documented in this encounter Results * Vitamin D Deficiency (10/17/2024 9:21 AM SPORTSPERSONS) Vitamin D, Total (25-Hydroxy) 26 20 - 50 ng/mL 10/18/2024 1:19 PM SPORTSPERSONS [facility] Comment:optimum levels Blood BLOOD SPECIMEN / Unknown Venipuncture / Unknown 10/17/2024 9:21 AM SPORTSPERSONS 10/17/2024 9:21 AM SPORTSPERSONS Narrative [facility] - 10/18/2024 1:19 PM SPORTSPERSONS Season, race, dietary intake, and treatment affect the concentration of 06-dnxrbtj-Obuyhzh D. Values may decrease during winter months and increase during summer months. Vitamin D determination is routinely performed by an immunoassay specific for 25 hydroxyvitamin D3. If an individual is on vitamin D2(ergocalciferol) supplementation, please specify 25 [place] vitamin D2 and D3 level determination by LCMSMS test VITD23. us Jorge Reid MD LAB - BLOOD ORDERABLES Fin al Result [facility] [address] [facility], Room [address] [address] documented in this encounter Visit Diagnoses Diagnosis Spina bifida of lumbosacral region with hydrocephalus (H) Vitamin D deficiency Unspecified vitamin D deficiency documented in this encounter Additional Health Concerns Assessment Noted Time PHQ-9 Depression Total Score: 7 06/22/20 2:20 PM CDT documented as of this encounter Care Teams Airport Engineer Relationship Specialty Start Date End Date Isa Rod APRN [employer] GOLF COACH [address] [place] [address] PCP - General Family Medicine 06/23/24 Alina Berkowitz PA-C [address] [address] Physician Pipe Organ Mechanic Apprentice Urology 06/24/24 Isa Rod APRN [employer] [address] [place] [address] Assigned PCP 07/26/24 Jorge Reid MD [address] [place] [address] Physician Physical Medicine and Rehabilitation 08/18/24 Lakeisha Aguilera MD [facility] [address] [place] [address] Assigned Surgical Provider 09/25/24 Jorge Reid MD [address] [place] [address] Assigned Neuroscience Provider 09/25/24 documented as of this encounter
--- OUTSIDE RECORDS SUMMARY | 2024-11-06 22:24 | XMS_ITS | Clinical Summary ---
Author Organization [place] Address [facility] [place] [address] Care Team Providers Care Book Jogger Name Role Phone Isa Rod APRN LEAD ELECTRICAL ENGINEER Primary Care Provi ifeanyi Alina Berkowitz PA-C Unavailable Isa Rod APRN LEAD ELECTRICAL ENGINEER Unavailable [phone] Jorge Reid MD Unavailable Lakeisha Aguilera MD Unavailable [phone] Jorge Reid MD Unavailable Allergies Active Allergy [...] Type Department Care Team Description 11/03/[address], [address] [place] [phone] Omid Gilliland MD 10/22/2024 Refill [facility] [place] [address] [place] [address] [address] [place] [phone] Jorge Reid MD Medication Refill 10/17/2024 9:30 AM GAME PROGRAMMER Lab [facility] [address] [place] [address] [address] [place] [phone] Spina bifida of lumbosacral region with hydrocephalus (H); Vitamin D deficiency 10/17/2024 8:00 AM GAME PROGRAMMER Office Visit [facility] [address] [place] [address] [address] [place] [phone] Jorge Reid MD Spina bifida of lumbosacral region with hydrocephalus (H) (Primary Dx); Cervical stenosis of spinal canal 10/17/[address] [phone] Isa Rod APRN CNP Medication Refill 10/17/2024 Travel 10/16/2024 Telephone [facility] [address], [address] [place] [phone] Jorge Reid MD 10/15/2024 1:40 PM GAME PROGRAMMER Office Visit [facility] [address] [place] [address] [address] [place] [phone] Nick Lo MD Helland, Logan C, MD Pain of right sacroiliac joint (Primary Dx) 10/15/2024 Travel 10/13/2024 Travel 10/01/2024 Travel 10/01/2024 PRE VISIT [facility] [address] [place] [address] [address] [place] [address] Jacobo Guido MD Previsit 09/28/2024 Travel 09/16/2024 Telephone [facility] [address] [facility] [address] [place] [address] Jacobo Guido MD Appointment 09/08/2024 1:00 PM GAME PROGRAMMER Virtual Visit [facility] [place] [address] [place] [phone] Isa Rod APRN CNP Mann, Rachel Ann, MD Neurogenic bladder (Primary Dx); Recurrent UTI; Chronic UTI; Urge incontinence of urine 09/05/2024 1:00 PM GAME PROGRAMMER Lab [facility] [address] [place] [phone] Spina bifida of lumbosacral region with hydrocephalus (H) 09/05/2024 9:00 AM GAME PROGRAMMER Office Visit [facility] [address] [place] [phone] Jorge Reid MD Spina bifida of lumbosacral region with hydrocephalus (H) (Primary Dx); Vitamin D deficiency 09/05/2024 Travel 09/02/2024 Travel 08/13/2024 12:40 PM GAME PROGRAMMER Office Visit [facility] [address] [facility], [address] [place] [phone] Isa Rod APRN CNP Wempe, Michael, MD [...] re latives? Once a week 06/22/2024 Attends [employer] Not on file 06/22 Active Member of Clubs or Organizations Not on f ile 06/22/2024 Attends Club or Organization Meetings Not on will e 06/22/2024 Marital Status Not on file 06/22/2024 PHQ-2 Answer Date Recorded PHQ-2 Score 0 09/08/2024 [facility] [place] [facility] Occupat ional Health - Occupational Stress [...] on file Legal Sex Male 3:09 AM GAME PROGRAMMER Gender Identity Not on file Sexual Orientation Not on file Last Filed Vital Signs Vital Sign Reading Time Taken Comments Blood Pressure 146/94 10/15/2024 1:38 PM GAME PROGRAMMER Pulse 76 10/15/2024 1:38 PM GAME PROGRAMMER Temperature 36.6 C (97.9 F) 06/23/2024 7:43 AM CDT Respiratory Rate 18 06/23/2024 7:43 AM CDT Oxygen Saturation 97% 10/15/2024 1:38 PM GAME PROGRAMMER Inhaled Oxygen Concentration - - Weight 74.8 kg (165 lb) 08/13/2024 12:28 PM GAME PROGRAMMER Height 160 cm (5' 3) 10/15/2024 1:38 PM GAME PROGRAMMER Body Mass Index 29.23 08/13/2024 12:28 PM GAME PROGRAMMER Plan of Treatment Upcoming Encounters Date Type Department Care Team (Late st Contact Info) Description 01/16/2025 11:20 AM CDT Office Visit [facility] [place] [address] [place] [address] [address] [place] [phone] Jorge Reid MD [address] [place] [id number] 01/27/2025 8:45 AM CDT Office Visit [facility] [place] [address] [place] [address], [address] [place] [phone] Jorge Reid MD [address] [place] [phone] Gelacio Rock MD [address] [place] [address] [id number] [place], [place] 465[address] 06/26/2025 8:00 AM CDT Office Visit [facility] [address] [place] [address] Isa Rod APRN [facility] [address] [place] [address] Health Maintenance Due Date Last Done Comments [...] D DEFICIENCY SCREENING Routine 10/17/2024 9:21 AM GAME PROGRAMMER Spina bifida of lumbosacral region with hydrocephalus (H) Vitamin D deficiency ALBUMIN LEVEL Routine 09/05/2024 12:52 PM GAME PROGRAMMER Spina bifida of lumbosacral region with hydrocephalus (H) CALCIUM Routine 09/05/2024 12:52 PM GAME PROGRAMMER Spina bifida of lumbosacral region with hydrocephalus (H) VITAMIN D DEFICIENCY SCREENING Routine 09/05/2024 12:52 PM GAME PROGRAMMER Spina bifida of lumbosacral region with hydrocephalus (H) MRI IMAGING - HIM SCAN 08/12/2024 12:00 AM GAME PROGRAMMER MRI IMAGING - HIM SCAN 08/12/2024 12:00 AM GAME PROGRAMMER MRI IMAGING - HIM SCAN 08/12/2024 12:00 AM GAME PROGRAMMER HIV ANTIGEN ANTIBODY COMBO Routine 06/23/2024 8:53 [...] * Vitamin D Deficiency (10/17/2024 9:21 AM GAME PROGRAMMER) Only the most recent of2 resultswithin the time period is included. Vitamin D, Total (25-Hydroxy) 26 20 - 50 ng/mL 10/18/2024 1:19 PM GAME PROGRAMMER [facility] Comment:optimum levels Blood BLOOD SPECIMEN / Unknown Venipuncture / Unknown 10/17/2024 9:21 AM GAME PROGRAMMER 10/17/2024 9:21 AM GAME PROGRAMMER Narrative [facility] - 10/18/2024 1:19 PM GAME PROGRAMMER Season, race, dietary intake, and treatment affect the concentration of 27-divmlxl-Hxyqlfv D. Values may decrease during winter months and increase during summer months. Vitamin D determination is routinely performed by an immunoassay specific for 25 hydroxyvitamin D3. If an individual is on vitamin D2(ergocalciferol) supplementation, please specify 25 OH vitamin D2 and D3 level determination by LCMSMS test VITD23. Jorge Reid MD LAB - BLOOD ORDERABLES Fin al Result Performing Organization Address [facility] de Phone Number LABORATORY [facility] [address] [facility], [address] [phone] * Calcium (09/05/2024 12:52 PM GAME PROGRAMMER) Calcium 9.6 8.8 - 10.4 mg/dL 09/05/2024 8:40 PM GAME PROGRAMMER [facility] Comment:Reference intervals for this test were updated on 03/18/2024 to reflect our healthy population more accurately. There may be differences in the flagging of prior results with similar values performed with this method. Those prior results can be interpreted in the context of the updated reference intervals. Blood BLOOD SPECIMEN / Unknown Venipuncture / Unknown 09/05/2024 12:52 PM GAME PROGRAMMER 09/05/2024 12:52 PM GAME PROGRAMMER Jorge Reid MD LAB - BLOOD ORDERABLES Fin al Result Performing Organization Address [facility] de Phone Number LABORATORY [facility] [address] [facility], [address] [phone] * Albumin level (09/05/2024 12:52 PM GAME PROGRAMMER) Albumin 4.5 3.5 - 5.2 g/dL 09/05/2024 8:40 PM GAME PROGRAMMER [facility] Blood BLOOD SPECIMEN / Unknown Venipuncture / Unknown 09/05/2024 12:52 PM GAME PROGRAMMER 09/05/2024 12:52 PM GAME PROGRAMMER Jorge Reid MD LAB - BLOOD ORDERABLES Fin al Result Performing Organization Address [facility] Co de Phone Number LABORATORY [facility] [address], [address] [phone] * MRI Imaging - HIM Scan (08/12/2024 12:00 AM GAME PROGRAMMER) Only the most recent of3 resultswithin the [...] BLOOD ORDERAB LES Final Result [facility] [place] [facility] [address] [facility], [address] [phone] * Hepatitis C Screen Reflex to HCV [...] 06/23/2024 8:58 AM CDT us Isa Rod HUMAN RESOURCES DEPARTMENT SUPERVISOR LEAD ELECTRICAL ENGINEER LAB - BLOOD ORDERAB LES Final Result [facility] [address] [facility], [address] [place] [address] * (ABNORMAL) Lipid panel reflex to direct LDL Non-fasting (06/23/2024 8:53 AM CDT) [facility] Cholesterol 196 <200 mg/dL 06/23/2024 4:12 PM [...] High: >= 220 mg/dL us Isa Rod HUMAN RESOURCES DEPARTMENT SUPERVISOR LEAD ELECTRICAL ENGINEER LAB - BLOOD ORDERAB LES Final Result [facility] [place] [facility] [address] [facility], [address] [place] [address] * (ABNORMAL) Comprehensive metabolic panel (BMP + [...] 8:58 AM CDT us Isa Rod APRN LEAD ELECTRICAL ENGINEER LAB - BLOOD ORDERAB LES Final Result [facility] [address], [address] [place] [address], [facility] from Last 3 Months or Most Recently Relevant to Health Maintenance Insurance COMMERCIAL Advance Directives For more information, please contact: [phone] Documents on File Type Date Recorded Patient Dry End Operator Expl anation Advance Directives and Living Will [...] Agents on File Name Relationship Healthcare Agent [facility] p Communication Miracle West Mother Health Care Agent Danilo West Father First Alternate Health Care Agent Care Teams Book Jogger Relationship Specialty Start Date End Date Isa Rod APRN LEAD ELECTRICAL ENGINEER [address] [place] [address] PCP - General Family Medicine 06/23/24 Alina Berkowitz PA-C [address] [address] Physician Visual Arts Teacher Urology 06/24/24 Isa Rod APRN LEAD ELECTRICAL ENGINEER [address] [place] [address] Assigned PCP 07/26/24 Jorge Reid MD [address] [place] [address] Physician Physical Medicine and Rehabilitation 08/18/24 Lakeisha Aguilera MD [facility] [address] [place] [address] Assigned Surgical Provider 09/25/24 Jorge Reid MD [address] [place] [address] Assigned Neuroscience Provider 09/25/24
[2024-11-06 22:33] VITALS: PULSE 80
== END 2024-11-06 22:35 | disposition home or self-care (01) ==
LOC: ED 22:20
PROVIDERS: Emergency Provider Emergency Medicine Emergency Medical Services
DX: S90.31XA Contusion of right foot, initial encounter (principal); W18.2XXA Fall in (into) shower or empty bathtub, initial encounter
CPT/HCPCS: 73630; 99283; 99284